=== PATIENT | female | born 1950 | race Caucasian/White ===

== ENCOUNTER → 2017-09-30 08:23 | Outpatient (CLI) | payer MEDICARE, SELFPAY ==
[2017-09-30 10:15] LABS: Alanine Aminotransferase 34 IU/L (9-52); Albumin 4.6 g/dL (3.5-5.0); Albumin Globulin Ratio 1.4 (1.0-2.8); Alkaline Phosphatase 64 U/L (38-126); Aspartate Aminotransferase 49 IU/L (14-36); BUN Creatinine Ratio 21.7 (6-22); Bilirubin Total 0.9 mg/dL (0.2-1.3); Blood Urea Nitrogen 13 mg/dL (7-17); Calcium 9.5 mg/dL (8.4-10.2); Carbon Dioxide 26 mmol/L (22-32); Chloride 101 mmol/L (98-107); Cholesterol 216 mg/dL (140-199); Estimated Glomerular Filt Rate > 60.0 mL/min (>60); Globulin 3.2 g/dL (1.7-4.1); Glucose 110 mg/dL (80-110); HDL Cholesterol 109 mg/dL (40-60); HEMOLYSIS < 15 (0-50); LDL Cholesterol Calculated 93 mg/dL (<100); Potassium 4.2 mmol/L (3.4-5.1); Sodium 138 mmol/L (137-145); Total Protein 7.8 g/dL (6.3-8.2); Triglycerides 72 mg/dL (35-150)
[2017-09-30 10:42] LABS: Thyroid Stimulating Hormone 4.44 uIU/mL (0.47-4.68)
== END ==
PROVIDERS: Visit Provider Internal Medicine
DX: I10 Essential (primary) hypertension (principal); E78.00 Pure hypercholesterolemia, unspecified; E03.9 Hypothyroidism, unspecified
CPT/HCPCS: 36415; 80053; 80061; 84443

== ENCOUNTER 2022-06-28 08:23 | Emergency (ER) | payer MEDICARE, SELFPAY ==
[2022-06-28] VITALS (32 sets, daily range): BP systolic 112–140; BP diastolic 57–93; PULSE 77–106; RESP 16; TEMP 36.4; O2SAT 95–99; BMI 27.4
--- NOTE | 2022-06-28 08:40 | ED_ITS ---
HPI - General Adult General Chief complaint: Toxicology Problem Stated complaint: detox Time Seen by Provider: 06/28/22 08:39 History of Present Illness HPI narrative: 72-year-old female nonsmoker with heavy alcohol history presents requesting help with detox from alcohol. She has medical history including hypertension and hypothyroid. She routinely drinks a few bottles of wine per day and states her last drink was last night. She is feeling a bit anxious and nauseated. She feels a bit shaky and tremulous. She denies headache or confusion. She denies abdominal pain or vomiting. She denies auditory, visual or tactile hallucinations. She is been to detox at least twice before, most recently about 8 years ago. She has had withdrawal type symptoms in the past but never had seizures. Related Data Home Medications Medication Instructions Recorded Confirmed Fish Oil (Fish Oil 500 MG Softgel) 500 mg PO QDAY ##0 05/11/12 06/28/22 VITAMIN D (Vitamin D3) 2,000 unit PO QDAY ##0 05/11/12 [woman's multivitamin] 1 tab PO Q DAY ##0 05/11/12 ascorbic acid (vitamin C) 500 mg 500 mg PO QDAY ##0 03/20/16 06/28/22 tablet levothyroxine 75 mcg tablet 50 mcg PO Q DAY ##0 08/05/16 06/28/22 (Synthroid) Previous Rx's Medication Instructions Recorded diltiazem HCl 180 mg 180 mg PO QDAY #30 caps 03/24/16 capsule,extended release 24 hr pantoprazole 40 mg tablet,delayed 40 mg PO BID ##60 03/24/16 release sucralfate 100 mg/mL oral 1,000 mg (10 mL) PO QID ##120 03/24/16 suspension Allergies Allergy/AdvReac Type Severity Reaction Status Date / Time erythromycin base AdvReac Unknown NAUSEA Verified 06/28/22 08:48 Review of Systems Review of Systems Narrative: GENERAL: See HPI HEENT: Denies sinus pain, ear pain, sore throat, difficulty swallowing, dizziness. RESPIRATORY: Denies dyspnea, cough, wheezing, hemoptysis, sputum. CARDIOVASCULAR: See HPI GASTROINTESTINAL: See HPI : Denies dysuria, frequency, incontinence, hematuria, urinary retention. MUSCULOSKELETAL: denies weakness, joint pain, or bony pain SKIN: Denies rash, skin lesions, or other NEUROLOGIC: See HPI PSYCHIATRIC: See HPI 12 point review of systems is negative except for those stated above Patient History Surgical History Status post laparoscopy Status post laparotomy Social History Smoking Status: Never smoker Exam Narrative Exam Narrative: GENERAL: [72] year old patient appears stated age. Well-developed patient, in mild distress. A bit anxious and agitated, GCS 15 HEAD: Atraumatic. Normocephalic. EYES: Pupils equal round and reactive. Extraocular motions intact. No scleral icterus. No injection or drainage. ENT: Nose without bleeding, purulent drainage. Throat without erythema, tonsillar hypertrophy or exudate. Airway patent. NECK: Trachea midline. Non tender CARDIOVASCULAR: Tachycardic but regular rhythm without murmurs, gallops, or rubs. RESPIRATORY: Clear to auscultation. Breath sounds equal bilaterally. No wheezes, rales, or rhonchi. GASTROINTESTINAL: Abdomen soft, non-tender, nondistended. EXTREMITIES: No edema or joint tenderness. BACK: Nontender without deformity or crepitance. No flank tenderness. NEURO: AOx3. Moderate tremor noted with arms extended SKIN: No rash or erythema of visible areas Initial Vital Signs Initial Vital Signs: Vital Signs Pulse Rate 101 H 06/28/22 08:28 Pulse Oximetry 98 06/28/22 08:28 Course Course Course Narrative: CIWA-Ar for Alcohol Withdrawal from [employer] on 06/28/2022 All calculations should be rechecked by clinician prior to use RESULT SUMMARY: 8 points Patients with scores <= typically do not require medication for withdrawal. INPUTS: Nausea/vomiting ?> 3 = (More severe symptoms) Tremor ?> 3 = (More severe symptoms) Paroxysmal sweats ?> 0 = No sweat visible Anxiety ?> 0 = No anxiety, at ease Agitation ?> 2 = (More severe symptoms) Tactile disturbances ?> 0 = None Auditory disturbances ?> 0 = Not present Visual disturbances ?> 0 = Not present Headache/fullness in head ?> 0 = Not Present Orientation/clouding of sensorium ?> 0 = Oriented, can do serial additions Orders Ordered: ED Orders 06/28/22 12:05 Consult to P[employer]ER [employer] Stat Discontinued Medications Sodium Chloride (Normal Saline 0.9%) 1,000 mls @ 1,000 mls/hr IV BOLUS ONE Stop: 06/28/22 09:38 Last Infusion: 06/28/22 10:43 Dose: 0 mls/hr Documented By: Admin: 06/28/22 08:49 Dose: 1,000 mls/hr Documented By: AT Thiamine HCl 200 mg/ Sodium (Chloride) 102 mls @ 408 mls/hr IV NOW ONE Stop: 06/28/22 08:40 Last Infusion: 06/28/22 09:36 Dose: 0 mls/hr Documented By: Admin: 06/28/22 09:08 Dose: 408 mls/hr Documented By: DELMER Phenobarbital (Phenobarbital 65 Mg/Ml Vial) 260 mg IV NOW ONE Stop: 06/28/22 08:40 Last Admin: 06/28/22 08:49 Dose: 260 mg Documented By: AT Phenobarbital (Phenobarbital 65 Mg/Ml Vial) 130 mg IV NOW ONE Stop: 06/28/22 11:42 Last Admin: 06/28/22 11:46 Dose: 130 mg Documented By: DELMER Phenobarbital (Phenobarbital 65 Mg/Ml Vial) 130 mg IV NOW ONE Stop: 06/28/22 14:46 Last Admin: 06/28/22 14:59 Dose: 130 mg Documented By: DELMER Consultations Consultation #1: discussed minimally elevated LFTs and Bilirubin with Dr. Robbins (Surgery) given presence of gallstone on US. After discussing her clinical presentation, complete lack of any abdominal pain or provocation associated with eating nor signs of cholecystitis on imaging he states that these slight elevations in LFTs are most likely a consequence of alcohol abuse and there is no indication for admission or surgical intervention at this time. Vital Signs Vital signs: Vital Signs - 8 hr 06/28/22 12:00 06/28/22 12:02 06/28/22 12:02 Pulse Rate 87 78 Blood Pressure 130/70 Pulse Oximetry 99 99 06/28/22 12:30 06/28/22 12:30 06/28/22 13:00 Pulse Rate 82 Blood Pressure 114/57 L 112/64 Pulse Oximetry 97 06/28/22 13:00 06/28/22 13:30 06/28/22 13:31 Pulse Rate 82 93 H 93 H Blood Pressure Pulse Oximetry 98 96 97 06/28/22 13:31 06/28/22 14:00 06/28/22 14:01 Pulse Rate 104 H Blood Pressure 118/60 117/93 H Pulse Oximetry 98 06/28/22 14:01 06/28/22 14:30 06/28/22 15:00 Pulse Rate 99 H 87 85 Blood Pressure Pulse Oximetry 98 98 96 06/28/22 15:30 06/28/22 16:00 06/28/22 16:30 Pulse Rate 80 90 77 Blood Pressure Pulse Oximetry 97 98 96 06/28/22 16:40 06/28/22 16:40 06/28/22 17:00 Pulse Rate 89 Blood Pressure 117/70 117/66 Pulse Oximetry 98 06/28/22 17:00 06/28/22 17:30 06/28/22 18:02 Pulse Rate 95 H 90 100 H Blood Pressure Pulse Oximetry 97 98 95 06/28/22 18:30 06/28/22 19:00 06/28/22 19:07 Pulse Rate 77 81 Blood Pressure 117/68 Pulse Oximetry 97 98 06/28/22 19:07 Pulse Rate 80 Blood Pressure Pulse Oximetry 98 Medical Decision Making Lab Data 06/28/22 08:45 06/28/22 08:45 Labs: Lab Results 06/28/22 06/28/22 06/28/22 Range/Units 08:45 08:45 08:45 WBC 7.3 (4.5-11.0) X10^3/uL RBC 4.09 (4.0-5.2) X10^6/uL Hgb 14.5 (12.0-16.0) g/dL Hct 42.3 (36-46) % MCV 103.6 H (80-100) fL MCH 35.5 H (26-34) PG MCHC 34.3 (30-36) % RDW 14.0 (11.6-14.8) % Plt Count 222 (150-400) X10^3/uL Neut % (Auto) 68.7 (50-75) % Lymph % (Auto) 20.7 L (25-40) % [facility] % (Auto) 9.8 (3-14) % Eos % (Auto) 0.5 L (2-4) % Baso % (Auto) 0.3 (0-2) % Neut # (Auto) 5000 (7741-3897) /uL Lymph # (Auto) 1500 (6856-1351) /uL [facility] # (Auto) 700 (0-900) /uL Eos # (Auto) 0 (0-450) /uL Baso # (Auto) 0 (0-100) /uL PT 12.0 (10.1-12.7) SECONDS INR 1.0 (0.9-1.3) Sodium 131 L (137-145) mmol/L Potassium 3.6 (3.4-5.1) mmol/L Chloride 94 L (98-107) mmol/L Carbon Dioxide 25 (22-32) mmol/L BUN 12 (7-17) mg/dL Creatinine 0.63 (0.52-1.04) mg/dL Estimated GFR > 60 (>60) mL/min BUN/Creatinine Ratio 19.0 (6-22) Glucose 127 H (80-110) mg/dL Calcium 10.0 (8.4-10.2) mg/dL Total Bilirubin 1.9 H (0.2-1.3) mg/dL AST 74 H (14-36) IU/L ALT 42 H (<35) IU/L Alkaline Phosphatase 71 (38-126) U/L Total Protein 7.9 (6.3-8.2) g/dL Albumin 4.4 (3.5-5.0) g/dL Globulin 3.5 (1.7-4.1) g/dL Albumin/Globulin Ratio 1.3 (1.0-2.8) TSH (0.47-4.68) uIU/mL Urine RBC (0-5/HPF) Urine WBC (0-5/HPF) Ur Squamous Epith Cells (0-5/HPF) Urine Bacteria (None) Ur Culture Indicated? U Opiates 300ng/mL cut (Negative) Ur Oxycodone Screen (Negative) Urine Methadone Screen (Negative) Ur Barbiturates Screen (Negative) U Tricyclic Antidepress (Negative) Ur Phencyclidine Scrn (Negative) Ur Amphetamines Screen (Negative) U Methamphetamines Scrn (Negative) Ur MDMA Scrn (Ecstasy) (Negative) U Benzodiazepines Scrn (Negative) Urine Cocaine Screen (Negative) U Marijuana (THC) Screen (Negative) Ethyl Alcohol < 10 ( - 10) mg/dL SARS-CoV-2 (PCR) (Negative) 06/28/22 06/28/22 06/28/22 Range/Units 08:45 08:45 09:41 WBC (4.5-11.0) X10^3/uL RBC (4.0-5.2) X10^6/uL Hgb (12.0-16.0) g/dL Hct (36-46) % MCV (80-100) fL MCH (26-34) PG MCHC (30-36) % RDW (11.6-14.8) % Plt Count (150-400) X10^3/uL Neut % (Auto) (50-75) % Lymph % (Auto) (25-40) % [facility] % (Auto) (3-14) % Eos % (Auto) (2-4) % Baso % (Auto) (0-2) % Neut # (Auto) (0225-4416) /uL Lymph # (Auto) (4305-6099) /uL [facility] # (Auto) (0-900) /uL Eos # (Auto) (0-450) /uL Baso # (Auto) (0-100) /uL PT (10.1-12.7) SECONDS INR (0.9-1.3) Sodium (137-145) mmol/L Potassium (3.4-5.1) mmol/L Chloride (98-107) mmol/L Carbon Dioxide (22-32) mmol/L BUN (7-17) mg/dL Creatinine (0.52-1.04) mg/dL Estimated GFR (>60) mL/min BUN/Creatinine Ratio (6-22) Glucose (80-110) mg/dL Calcium (8.4-10.2) mg/dL Total Bilirubin (0.2-1.3) mg/dL AST (14-36) IU/L ALT (<35) IU/L Alkaline Phosphatase (38-126) U/L Total Protein (6.3-8.2) g/dL Albumin (3.5-5.0) g/dL Globulin (1.7-4.1) g/dL Albumin/Globulin Ratio (1.0-2.8) TSH 3.45 (0.47-4.68) uIU/mL Urine RBC 1-5/hpf (0-5/HPF) Urine WBC 5-10/hpf H (0-5/HPF) Ur Squamous Epith Cells 1-5 /hpf (0-5/HPF) Urine Bacteria Many (>30) H (None) Ur Culture Indicated? Specimen cultured U Opiates 300ng/mL cut (Negative) Ur Oxycodone Screen (Negative) Urine Methadone Screen (Negative) Ur Barbiturates Screen (Negative) U Tricyclic Antidepress (Negative) Ur Phencyclidine Scrn (Negative) Ur Amphetamines Screen (Negative) U Methamphetamines Scrn (Negative) Ur MDMA Scrn (Ecstasy) (Negative) U Benzodiazepines Scrn (Negative) Urine Cocaine Screen (Negative) U Marijuana (THC) Screen (Negative) Ethyl Alcohol ( - 10) mg/dL SARS-CoV-2 (PCR) Negative (Negative) 06/28/22 Range/Units 09:41 WBC (4.5-11.0) X10^3/uL RBC (4.0-5.2) X10^6/uL Hgb (12.0-16.0) g/dL Hct (36-46) % MCV (80-100) fL MCH (26-34) PG MCHC (30-36) % RDW (11.6-14.8) % Plt Count (150-400) X10^3/uL Neut % (Auto) (50-75) % Lymph % (Auto) (25-40) % [facility] % (Auto) (3-14) % Eos % (Auto) (2-4) % Baso % (Auto) (0-2) % Neut # (Auto) (5648-0459) /uL Lymph # (Auto) (4046-2601) /uL [facility] # (Auto) (0-900) /uL Eos # (Auto) (0-450) /uL Baso # (Auto) (0-100) /uL PT (10.1-12.7) SECONDS INR (0.9-1.3) Sodium (137-145) mmol/L Potassium (3.4-5.1) mmol/L Chloride (98-107) mmol/L Carbon Dioxide (22-32) mmol/L BUN (7-17) mg/dL Creatinine (0.52-1.04) mg/dL Estimated GFR (>60) mL/min BUN/Creatinine Ratio (6-22) Glucose (80-110) mg/dL Calcium (8.4-10.2) mg/dL Total Bilirubin (0.2-1.3) mg/dL AST (14-36) IU/L ALT (<35) IU/L Alkaline Phosphatase (38-126) U/L Total Protein (6.3-8.2) g/dL Albumin (3.5-5.0) g/dL Globulin (1.7-4.1) g/dL Albumin/Globulin Ratio (1.0-2.8) TSH (0.47-4.68) uIU/mL Urine RBC (0-5/HPF) Urine WBC (0-5/HPF) Ur Squamous Epith Cells (0-5/HPF) Urine Bacteria (None) Ur Culture Indicated? U Opiates 300ng/mL cut Negative (Negative) Ur Oxycodone Screen Negative (Negative) Urine Methadone Screen Negative (Negative) Ur Barbiturates Screen Negative (Negative) U Tricyclic Antidepress Negative (Negative) Ur Phencyclidine Scrn Negative (Negative) Ur Amphetamines Screen Negative (Negative) U Methamphetamines Scrn Negative (Negative) Ur MDMA Scrn (Ecstasy) Negative (Negative) U Benzodiazepines Scrn Negative (Negative) Urine Cocaine Screen Negative (Negative) U Marijuana (THC) Screen Negative (Negative) Ethyl Alcohol ( - 10) mg/dL SARS-CoV-2 (PCR) (Negative) Urine Dip Bedside Urine Glucose Negative Bedside Urine Bilirubin - Negative Bedside Urine Ketone +/- 5 Urine Specific Douglas 1.010 Bedside Urine Occult Blood - Negative Bedside Urine pH 6.0 Bedside Urine Protein - Negative Bedside Urine Urobilinogen - Negative Bedside Urine Nitrite - Negative Bedside Urine Leukocytes +++ 500 Esterase Point of care testing: Urine Dip Bedside Urine Glucose Negative Bedside Urine Bilirubin - Negative Bedside Urine Ketone +/- 5 Urine Specific Douglas 1.010 Bedside Urine Occult Blood - Negative Bedside Urine pH 6.0 Bedside Urine Protein - Negative Bedside Urine Urobilinogen - Negative Bedside Urine Nitrite - Negative Bedside Urine Leukocytes +++ 500 Esterase MDM Narrative Medical decision making narrative: [72] year old patient presents with heavy alcohol history concern about early withdrawal and requesting help with detox Multiple etiologies for patient's symptoms considered including, but not limited to: [Alcohol withdrawal versus other] Prior Charts reviewed in our EMR Primary Historian: patient Labs reviewed and interpreted by myself: Slight elevation in LFTs and bilirubin, no leukocytosis or left shift Imaging reviewed: ABD US notes gall stones, no choleycystitis Consultations: Discussed with Dr. Robbins, see details above Patient's symptoms improved over duration of stay with above-stated therapies. Phenobarb 260 --> 130 Patient is medically cleared, appropriate for transfer to Detox at [place] Critical Care Time Critical Care Time Critical Care Time: Yes Total Critical Care Time: 30 Attestation: The high probability of a clinically significant, sudden or life threatening deterioration of the [CV] system(s) required my full and direct attention, intervention and personal management. The aggregate critical care time was [30] minutes. This time is in addition to time spent performing reported procedures but includes the following: [x] Data Review and interpretation [x] Patient assessment and monitoring of vital signs [x] Documentation [x] Medication orders and management Discharge Plan Departure Patient Disposition: [facility] Clinical Impression: Alcohol withdrawal syndrome Prescriptions: No Action Fish Oil (Fish Oil 500 MG Softgel) 500 mg PO QDAY Qty: 0 VITAMIN D (Vitamin D3) 2,000 unit PO QDAY Qty: 0 [woman's multivitamin] 1 tab PO Q DAY Qty: 0 ascorbic acid (vitamin C) 500 MG tablet 500 mg PO QDAY Qty: 0 diltiazem HCl 180 MG capsule,extended release 24hr 180 mg PO QDAY Qty: 30 0RF pantoprazole 40 MG tablet,delayed release (DR/EC) 40 mg PO BID Qty: 60 0RF sucralfate 1 GM/10 ML suspension 1,000 mg PO QID Qty: 120 0RF levothyroxine [Synthroid] 75 MCG tablet 50 mcg PO Q DAY Qty: 0
[2022-06-28] MEDS: SODIUM CHLORIDE 0.9% 1,000 ML 1000 ML IV (08:49)
[2022-06-28] MEDS: PHENobarbital 65 MG/ML VIAL 260 MG IV (08:49)
--- NOTE | 2022-06-28 08:50 | PC.NURSE ---
Addendum entered by Leah Vail R.N. 06/28/22 09:00: 0900: Pt completing phone screen with [facility] in [place] at this time. Original Note: 0850: [facility] - no beds available [facility], [place], operated by [facility]- no beds available [facility]-has beds later today. advised to fax packet to intake [phone] [facility]- has beds available. advised to fax packet to [phone]
[2022-06-28 08:55] LABS: Add Manual Diff / Slide Review NO; Basophils Absolute Auto 0 /uL (0-100); Basophils Percent Auto 0.3 % (0-2); Eosinophils Absolute Auto 0 /uL (0-450); Eosinophils Percent Auto 0.5 % (2-4); Hematocrit 42.3 % (36-46); Hemoglobin 14.5 g/dL (12.0-16.0); Lymphocytes Absolute Auto 1500 /uL (1100-4500); Lymphocytes Percent Auto 20.7 % (25-40); Mean Corpuscular HGB Conc 34.3 % (30-36); Mean Corpuscular Hemoglobin 35.5 PG (26-34); Mean Corpuscular Volume 103.6 fL (80-100); Monocytes Absolute Auto 700 /uL (0-900); Monocytes Percent Auto 9.8 % (3-14); Neutrophils Absolute Auto 5000 /uL (1500-7000); Neutrophils Percent Auto 68.7 % (50-75); Platelet Count 222 X10^3/uL (150-400); Red Blood Cell Count 4.09 X10^6/uL (4.0-5.2); White Blood Cell Count 7.3 X10^3/uL (4.5-11.0)
[2022-06-28 09:06] LABS: Alanine Aminotransferase 42 IU/L (<35); Albumin 4.4 g/dL (3.5-5.0); Albumin Globulin Ratio 1.3 (1.0-2.8); Alkaline Phosphatase 71 U/L (38-126); Aspartate Aminotransferase 74 IU/L (14-36); Bilirubin Total 1.9 mg/dL (0.2-1.3); Blood Urea Nitrogen 12 mg/dL (7-17); Carbon Dioxide 25 mmol/L (22-32); Chloride 94 mmol/L (98-107); Estimated Glomerular Filt Rate > 60 mL/min (>60); Ethanol (ETOH) < 10 mg/dL; Globulin 3.5 g/dL (1.7-4.1); Glucose 127 mg/dL (80-110); HEMOLYSIS < 15 (0-50); Potassium 3.6 mmol/L (3.4-5.1); Sodium 131 mmol/L (137-145); Total Protein 7.9 g/dL (6.3-8.2)
[2022-06-28 09:07] LABS: COVID19 -Nasal RAPID Negative (Negative)
[2022-06-28] MEDS: THIAMINE 200 MG in SODIUM CHLORIDE 0.9% 100 ML 408 MG IV (09:08)
[2022-06-28 09:36] LABS: Thyroid Stimulating Hormone 3.45 uIU/mL (0.47-4.68)
--- NOTE | 2022-06-28 09:43 | DI.US.S_ITS ---
PROCEDURE: US ABDOMEN LIMITED INDICATIONS: ELEVATED LIVER FUNCTION TESTS AND BILIRUBIN TECHNIQUE: Real-time focused scanning was performed of the abdomen, with image documentation. COMPARISON: [facility], [place], ABDOMEN/PELVIS WITH CONTRAST, 03/20/2016, 7:50. FINDINGS: Increased echogenicity of the liver is consistent with diffuse hepatic steatosis. There are multiple stones present in the gallbladder. The gallbladder is mildly distended. There is a non mobile stone at the gallbladder neck. There is no gallbladder wall thickening or fluid around the gallbladder or sonographic Alaniz sign. No biliary ductal dilatation. Common bile duct measures 4.1 mm. Visualized portions the pancreas are unremarkable. IMPRESSION: 1. Diffuse hepatic steatosis. 2. Cholelithiasis. Dictated by: Mateo Covarrubias M.D. on 06/28/2022 at 11:04 Approved by: Mateo Covarrubias M.D. on 06/28/2022 at 11:06
[2022-06-28 09:58] LABS: Bacteria Urine Many (>30); Culture Indicated Urine Specimen Cultured; RBC Urine 1-5/HPF (0-5/HPF); Squamous Epithelial Cell Urine 1-5 /HPF (0-5/HPF); WBC Urine 5-10/HPF (0-5/HPF)
[2022-06-28] MEDS: PHENobarbital 65 MG/ML VIAL 130 MG IV ×2 (11:46→14:59)
--- NOTE | 2022-06-28 13:00 | CM.SWNOTE ---
REPLENISHMENT SPECIALIST Assessment REPLENISHMENT SPECIALIST - Loan Representative Assessment REPLENISHMENT SPECIALIST/Loan Representative Assessment Time Spent with Patient Start date 06/28/22 Visit Start Time 12:25 End date 06/28/22 Visit End Time 12:45 Total time Care Management spent on 20 minutes patient visit-in minutes Substance Abuse Screening Include Onset, Duration, Intensity Presenting Problem Patient presents to ED due to concern for ETOH withdrawal and seeking detox. Patient endorses she drinks a few bottles of wine a day. Patient endorses that she drank a couple glasses of wine last night in attempt to decrease wine intake. Precipitating Event(s) Patient endorses she is motivated to stop her drinking . Patient endorses that she had a fall last week when she lost her balance due to drinking too much and does not want to put herself in that situation again. Patient endorses motivation to take care of herself and follow up with upcoming medical appointments in July, patient endorses she believes her drinking is interfering with her health. Patient endorses hx of two 21 inpatient rehab stays several years ago and she proceeded to drink upon discharge each time. Patient endorses she feels like wine is poison to her health now and she wants to detox in a safe environment . Patient Strengths Patient has good support from friends and family and patient is seeking detox. Current Behavioral Health Provider(s) None currently, patient is Include Facility, Provider, Ph. # interested in outpatient providers Family Hx of Behavioral Abuse None reported Rehab Facilities? ((Date(s), Location(s) Patient endorses hx of going ) to [facility] in [place] about 15 years ago and hx of going to [place] about 8-9 years ago for rehab treatment. History of Withdrawal? Seizures? Patient endorses hx of shakiness, anxiety and depression. Patient denies hx of seizures. Longest Period of Sobriety Patient endorses she was sober for 6 months about 20 years ago. Psychosocial information & Support Patient is 72 y/o female who Systems resides in [place]. Patient resides with spouse and has daughter that lives in town, patient endorses several friends and neighbors as supports as well. 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 Legal Concerns Legal Matters - Outstanding Issues None reported Mental Status Orientation (Person/Place/Time) A/Ox4 Stated Mood I've been drinking too much Affect (Congruent with Mood?) euthymic, anxious, full range, congruent with mood Thought Content - Specify/Describe None reported Obsessions, Delusions, Hallucinations Thought Processes (Kanpwjb-Qcbxfzsy-Qjvj coherent Exnfbbtk-Rljzhvip-Ktcvtwxnhe- Iczsdnmefiaoqv-Oylrvek-Kzjhmezcmvrt- Thought Blocking) Speech (Bevedq-Yudm-Ooqsrmg-Rapid-Soft- normal Loud-Pressured) Motor (Snywjz-Hvdeylhdw-Lthb-Other) normal Insight (Spav-Msnl-Vjdh/Limited) fair Judgement (Sjju-Kezn-Mifz/Limited) fair Impulse Control (Adequate-Impaired) adequate Memory (Kdgqmkews-Nevovu-Gvguuo, intact, not formally assessed Impaired-Intact) Concentration (Intact-Impaired) intact Attention (Intact-Impaired) intact Behavior (Appropriate-Inappropriate) appropriate Additional Comment Patient presents as calm, cooperative and communicative. Risk Assessment Suicidal Ideation (Plan) No Homicidal Ideation (Plan) No Intervention Intervention REPLENISHMENT SPECIALIST enters room to meet with patient, present in room is patient's spouse. Patient gives consent for spouse to be present. Patient endorses she is seeking detox for her ETOH withdrawals. Patient endorses she drank a few glasses a of wine last night. Patient endorses on typical day she can drink up to a few bottles of wine. Patient endorses she has attempt to address her drinking twice several years ago at inpatient rehab but was unsuccessful upon return to home. Patient endorses she has tried AA once but is willing to try it again, patient is also open to outpatient MH and ISMAEL providers. Patient endorses she has been experiencing depression due to concern for her vision, but states she has medical appointments next month to address this. Patient endorses ability to manage all ADLs. It is the opinion of this REPLENISHMENT SPECIALIST that patient is appropriate for and will benefit from detox to for safety and medication management. REPLENISHMENT SPECIALIST to review the above with ED provider Dr. Santizo. Plan RA Plan REPLENISHMENT SPECIALIST to seek detox bed for patient upon medical clearance . ANDRES MontielSW
[2022-06-28 13:44] LABS: Ur Creatinine Normal (Normal); Ur Specific Gravity Normal (Normal); Urine pH Normal (Normal)
[2022-06-28 13:47] LABS: UR Morphine/Opiate cutoff 300 Negative (Negative); Urine Amphetamines Negative (Negative); Urine Barbiturates Negative (Negative); Urine Benzodiazepines Negative (Negative); Urine Cocaine Negative (Negative); Urine MDMA Negative (Negative); Urine Methadone Negative (Negative); Urine Methamphetamines Negative (Negative); Urine Oxycodone Negative (Negative); Urine Phencyclidine Negative (Negative); Urine Tetrahydrocannabinol Negative (Negative); Urine Tricyclic Antidepressant Negative (Negative)
--- NOTE | 2022-06-28 15:07 | CM.SWNOTE ---
EXPORT FREIGHT SPECIALIST Note EXPORT FREIGHT SPECIALIST receives call from [facility], it is reported that patient is accepted pending UA results. EXPORT FREIGHT SPECIALIST faxes UA results, it is reported that patient is accepted at [facility]. Intake- [facility], accepting provider is ALPHONSE Tiwari. ETA is 2200. EXPORT FREIGHT SPECIALIST asks about transport preference and it is reported that the preference is via EMS due to concern for withdrawals or patient seeking further access to ETOH. EXPORT FREIGHT SPECIALIST calls [facility] and schedules transport for 1999 hand picker time. EXPORT FREIGHT SPECIALIST reviews this with patient and spouse and they indicate agreement and understanding. EXPORT FREIGHT SPECIALIST calls patient's insurance company and confirms that patient's transport copay is $150. It is reported that [facility] accepted patient for tomorrow morning, ED provider is not able to board patient in ED until then and patient and spouse's preference is direct transfer to detox. Per previous note, [facility] and [facility] detox do not have beds. EXPORT FREIGHT SPECIALIST provides patient and spouse with lists of MH and ISMAEL providers that accept patient's insurance. Plan: Patient to transfer to [facility] for detox bed via BLS this evening. Montse Philippe, GREENS PLANTER
--- NOTE | 2022-06-28 20:42 | PC.NURSE ---
Attempted to call report to Nicole Abdullahi, #[phone], no answer. [facility] ambulance crew arrived at this time for transport. Patient ambulatory and able to independently move to stretcher. Will attempt to call Nicole again for nurse to nurse report.
--- NOTE | 2022-06-28 21:16 | PC.NURSE ---
Call made to give nurse to nurse report to Bradly Rivear. Spoke with NGUYỄN Prieto, report given, all questions answered.
== END 2022-06-28 20:50 | disposition short-term general hospital (02) ==
PROVIDERS: Emergency Provider Emergency Medicine; PCP Physician Assistant
DX: F10.239 Alcohol dependence with withdrawal, unspecified (principal); Z20.822 Contact with and (suspected) exposure to COVID-19
CPT/HCPCS: 36415; 76705; 80053; 80305; 80320; 81003; 81015; 84443; 85025; 85610; 87077; 87086; 87186; 87635; 96361; 96374; 96376; 99284; 99285; C9803; J2560

== ENCOUNTER 2023-10-29 19:38 | Emergency (ER) | payer MEDICARE, SELFPAY ==
[2023-10-29] VITALS (42 sets, daily range): BP systolic 97–136; BP diastolic 51–78; PULSE 65–93; RESP 18–41; TEMP 36.1–36.9; O2SAT 91–100; BMI 32.5
--- NOTE | 2023-10-29 19:34 | DI.RAD.S_ITS ---
PROCEDURE: XR ANKLE RT MIN 3V INDICATIONS: right ankle injury/deformity TECHNIQUE: 3 views of the ankle were acquired. COMPARISON: None. FINDINGS: Bones: Oblique fracture through the distal fibula and transverse fracture through the medial malleolus associated with ankle mortise disruption and lateral tibial talar subluxation angulation Soft tissues: No tibiotalar joint effusion. Achilles tendon appears normal. IMPRESSION: Angulated by malleolar ankle fracture with complete ankle mortise disruption Approved by: Walt Moran M.D. on 10/29/2023 at 19:25
--- NOTE | 2023-10-29 19:44 | ED_ITS ---
HPI - Extremity Injury (Lower) General Chief Complaint: Extremity Injury, Lower Stated Complaint: ETOH, Right ankle injury Time Seen by Provider: 10/29/23 19:44 History of Present Illness HPI Narrative: 73-year-old female admits to recent/daily alcohol use, 3 glasses of wine this evening which apparently she usually drinks, attempted stretching at her home floor, lost her balance fell to the side, unclear if she fell rightward or leftward, but had pain and swelling to her right ankle. Denies any other injuries. Specifically she denies striking her head. She had no loss of consciousness, denies headache, denies facial discomfort or swelling, denies pain to neck upper back lower back, denies pain to abdomen chest pelvic region. Denies hip discomfort. His upper extremity injuries. Denies pain in the left lower extremity. Denies pain to the proximal right lower extremity above the level of the ankle area, no knee pain or swelling. Related Data Home Medications Medication Instructions Recorded Confirmed Fish Oil (Fish Oil 500 MG Softgel) 500 mg PO QDAY ##0 05/11/12 06/28/22 VITAMIN D (Vitamin D3) 2,000 unit PO QDAY ##0 05/11/12 [woman's multivitamin] 1 tab PO Q DAY ##0 05/11/12 ascorbic acid (vitamin C) 500 mg 500 mg PO QDAY ##0 03/20/16 06/28/22 tablet levothyroxine 75 mcg tablet 50 mcg PO Q DAY ##0 08/05/16 06/28/22 (Synthroid) Previous Rx's Medication Instructions Recorded diltiazem HCl 180 mg 180 mg PO QDAY #30 caps 03/24/16 capsule,extended release 24 hr pantoprazole 40 mg tablet,delayed 40 mg PO BID ##60 03/24/16 release sucralfate 100 mg/mL oral 1,000 mg (10 mL) PO QID ##120 03/24/16 suspension Allergies Allergy/AdvReac Type Severity Reaction Status Date / Time erythromycin base AdvReac Unknown NAUSEA Verified 06/28/22 08:48 Review of Systems Review of Systems Narrative: see HPI Patient History Surgical History Status post laparoscopy Status post laparotomy Social History Smoking Status: Never smoker Smoking Status: Never smoker alcohol intake frequency: 3 or more drinks per day Alcohol type: wine Exam Narrative Exam Narrative: GENERAL: Well-developed patient, in mild distress. HEAD: Atraumatic. Normocephalic. EYES: Pupils equal round and reactive. Extraocular motions intact. No scleral icterus. No injection or drainage. ENT: Nose without bleeding, purulent drainage. Throat without erythema, tonsillar hypertrophy or exudate. Airway patent. NECK: Trachea midline. Non tender CARDIOVASCULAR: Regular rate and rhythm without murmurs, gallops, or rubs. RESPIRATORY: Clear to auscultation. Breath sounds equal bilaterally. No wheezes, rales, or rhonchi. GASTROINTESTINAL: Abdomen soft, non-tender, nondistended. EXTREMITIES: Abrasion medial malleolus right ankle, with gross deformity and swelling, likely fracture dislocation. Good cap refill distal toes. DP pulse good. BACK: Nontender without deformity or crepitance. No flank tenderness. NEURO: AOx3. Motor exam grossly nonfocal SKIN: No rash or erythema of visible areas Initial Vital Signs Initial Vital Signs: Vital Signs Pulse Rate 76 10/29/23 19:38 Pulse Oximetry 97 10/29/23 19:38 Procedures Orthopedic Fracture Reduction Fracture #1: Time of procedure: 21:41 Analgesia: procedural sedation Technique: direct manipulation Post Reduction X-rays Demonstrate: acceptable reduction Post-reduction neuro exam: intact Splint Applied: Yes Patient Tolerated Procedure: Well Additional Comments: Fracture dislocation right ankle, tib-fib, tolerated procedure sedation well, improved on post procedure x-ray, in splint, good cap refill. Follow up with Orthopedic surgery for definitive repair Procedural Sedation Time of procedure: 21:38 Consent signed: Yes Time out performed: Yes Indication: fracture/dislocation reduction ASA Class: I Preparation: monitoring analyst applied, pulse oximeter, capnometry used, supplemental O2 applied, suction/airway equipment at bedside and IV secured IV Propofol dose (mg): 160 ED Sedation Level: Moderate (Concious) Patient Tolerated Procedure: Well Complications: none Additional Comments: Tolerated procedure well, post procedure x-rays performed, returned to preprocedural baseline mental status Course Orders Ordered: ED Orders 10/29/23 19:34 XR ankle RT min 3V Stat 10/29/23 21:35 XR ankle RT min 3V Stat 10/29/23 21:57 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 to [employer]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 Stat Discontinued Medications Bacitracin (Bacitracin Oint 0.9 Gm Pckt) 2 applic TOP NOW ONE Stop: 10/29/23 21:17 Last Admin: 10/29/23 21:20 Dose: 2 applic Documented By: Propofol (Propofol 200 Mg/20 Ml Vial) 200 mg IV NOW ONE Stop: 10/29/23 21:14 Last Admin: 10/29/23 21:23 Dose: 160 mg Documented By: Tramadol HCl (Tramadol 50 Mg Tablet) 50 mg PO NOW ONE Stop: 10/29/23 22:28 Last Admin: 10/29/23 22:40 Dose: 50 mg Documented By: Tramadol HCl (Tramadol 50 Mg Prepack) 1 bottle MISC DIRECTED ONE Stop: 10/29/23 22:29 Last Admin: 10/29/23 22:40 Dose: 1 bottle Documented By: Vital Signs Vital signs: Vital Signs - 8 hr 10/29/23 19:38 10/29/23 19:39 10/29/23 19:40 Temperature 96.9 F L Pulse Rate 76 65 69 Respiratory Rate 22 Blood Pressure 135/68 Pulse Oximetry 97 98 98 Oxygen Delivery Method Room Air Oxygen Flow Rate 10/29/23 19:41 10/29/23 19:41 10/29/23 19:45 Temperature Pulse Rate 72 69 Respiratory Rate Blood Pressure 135/68 Pulse Oximetry 98 98 Oxygen Delivery Method Oxygen Flow Rate 10/29/23 19:53 10/29/23 19:55 10/29/23 20:00 Temperature Pulse Rate 76 70 73 Respiratory Rate Blood Pressure Pulse Oximetry 97 94 98 Oxygen Delivery Method Room Air Oxygen Flow Rate 10/29/23 20:01 10/29/23 20:01 10/29/23 20:05 Temperature Pulse Rate 73 71 Respiratory Rate Blood Pressure 125/69 Pulse Oximetry 98 97 Oxygen Delivery Method Oxygen Flow Rate 10/29/23 20:10 10/29/23 20:15 10/29/23 20:20 Temperature Pulse Rate 76 67 71 Respiratory Rate Blood Pressure Pulse Oximetry 99 99 98 Oxygen Delivery Method Oxygen Flow Rate 10/29/23 20:25 10/29/23 20:30 10/29/23 20:31 Temperature Pulse Rate 66 72 69 Respiratory Rate Blood Pressure Pulse Oximetry 99 98 99 Oxygen Delivery Method Oxygen Flow Rate 10/29/23 20:31 10/29/23 20:35 10/29/23 20:40 Temperature Pulse Rate 77 70 Respiratory Rate Blood Pressure 136/59 L Pulse Oximetry 99 97 Oxygen Delivery Method Oxygen Flow Rate 10/29/23 20:45 10/29/23 20:50 10/29/23 20:55 Temperature Pulse Rate 69 71 73 Respiratory Rate Blood Pressure Pulse Oximetry 98 99 99 Oxygen Delivery Method Oxygen Flow Rate 10/29/23 21:00 10/29/23 21:01 10/29/23 21:01 Temperature Pulse Rate 73 76 Respiratory Rate Blood Pressure 135/63 Pulse Oximetry 98 99 Oxygen Delivery Method Oxygen Flow Rate 10/29/23 21:05 10/29/23 21:10 10/29/23 21:15 Temperature Pulse Rate 71 78 Respiratory Rate Blood Pressure 121/57 L Pulse Oximetry 98 98 Oxygen Delivery Method Oxygen Flow Rate 10/29/23 21:15 10/29/23 21:20 10/29/23 21:20 Temperature Pulse Rate 83 85 82 Respiratory Rate 25 H 18 20 Blood Pressure 121/57 L Pulse Oximetry 97 97 97 Oxygen Delivery Method Oxygen Flow Rate 10/29/23 21:20 10/29/23 21:21 10/29/23 21:25 Temperature Pulse Rate 79 80 Respiratory Rate 26 H 24 Blood Pressure 117/58 L 117/58 L Pulse Oximetry 93 91 Oxygen Delivery Method Oxygen Flow Rate 0.5 10/29/23 21:25 10/29/23 21:30 10/29/23 21:33 Temperature Pulse Rate 75 84 Respiratory Rate 22 22 Blood Pressure 97/51 L Pulse Oximetry 93 96 Oxygen Delivery Method Oxygen Flow Rate 10/29/23 21:33 10/29/23 21:35 10/29/23 21:35 Temperature Pulse Rate 76 Respiratory Rate 21 Blood Pressure 112/59 L 113/51 L Pulse Oximetry 97 Oxygen Delivery Method Oxygen Flow Rate 10/29/23 21:40 10/29/23 21:40 10/29/23 21:45 Temperature Pulse Rate 80 83 Respiratory Rate 21 28 H Blood Pressure 115/55 L Pulse Oximetry 98 100 Oxygen Delivery Method Room Air Oxygen Flow Rate 10/29/23 21:45 10/29/23 21:50 10/29/23 21:50 Temperature Pulse Rate 74 Respiratory Rate 26 H Blood Pressure 107/63 117/66 Pulse Oximetry 99 Oxygen Delivery Method Oxygen Flow Rate 10/29/23 21:55 10/29/23 21:55 10/29/23 22:00 Temperature Pulse Rate 80 79 Respiratory Rate 41 H 19 Blood Pressure 126/60 Pulse Oximetry 99 97 Oxygen Delivery Method Oxygen Flow Rate 10/29/23 22:00 10/29/23 22:05 10/29/23 22:05 Temperature Pulse Rate 76 Respiratory Rate 35 H Blood Pressure 122/60 123/67 Pulse Oximetry 98 Oxygen Delivery Method Oxygen Flow Rate 10/29/23 22:23 10/29/23 22:23 10/29/23 22:25 Temperature Pulse Rate 93 H 83 Respiratory Rate Blood Pressure 136/63 Pulse Oximetry 98 99 Oxygen Delivery Method Oxygen Flow Rate 10/29/23 22:25 10/29/23 22:30 10/29/23 22:30 Temperature Pulse Rate 83 Respiratory Rate Blood Pressure 133/63 126/67 Pulse Oximetry 98 Oxygen Delivery Method Room Air Oxygen Flow Rate 10/29/23 22:46 Temperature 98.4 F Pulse Rate 87 Respiratory Rate 18 Blood Pressure 135/78 Pulse Oximetry 98 Oxygen Delivery Method Room Air Oxygen Flow Rate MDM - Extremity Injury (Lower) Lab Data Attestation: I reviewed the patient's lab results. Labs: Point of Care Testing Test Results Negative Imaging Data Extremity x-ray #1: Radiologist's Impression: [place] [address] XRay Report Signed Patient: Lynn Lenz MR#: [id number] : 1950 Acct:[id number] Age/Sex: 73 / F Date of Service: 10/29/23 Loc: ED Accession Number: [id number] Procedure: XR ankle RT min 3V Ordering Provider: Cj Abrams MD PROCEDURE: XR ANKLE RT MIN 3V INDICATIONS: right ankle injury/deformity TECHNIQUE: 3 views of the ankle were acquired. COMPARISON: None. FINDINGS: Bones: Oblique fracture through the distal fibula and transverse fracture through the medial malleolus associated with ankle mortise disruption and lateral tibial talar subluxation angulation Soft tissues: No tibiotalar joint effusion. Achilles tendon appears normal. IMPRESSION: Angulated by malleolar ankle fracture with complete ankle mortise disruption Approved by: Walt Moran M.D. on 10/29/2023 at 19:25 Extremity x-ray #2: Radiologist's Impression: [facility] [address] [place] [id number] XRay Report Signed Patient: Lynn Lenz MR#: [id number] : 1950 Acct:[id number] Age/Sex: 73 / F Date of Service: 10/29/23 Loc: ED Accession Number: [id number] Procedure: XR ankle RT min 3V Ordering Provider: Cj Abrams MD PROCEDURE: XR ANKLE RT MIN 3V INDICATIONS: post-reduction/splinting TECHNIQUE: 3 views of the ankle were acquired. COMPARISON: [facility], CR, XR ANKLE RT MIN 3V, 10/29/2023, 19:41. FINDINGS: Bones: Improved alignment of bimalleolar ankle fracture in fiberglass splint Soft tissues: No tibiotalar joint effusion. Achilles tendon appears normal. IMPRESSION: Improved alignment of bimalleolar ankle fracture in fiberglass splint. Pe rsistent but improved tibiotalar subluxation Approved by: Walt Moran M.D. on 10/29/2023 at 21:14 [facility] Narrative Medical decision making narrative: Recent alcohol use, 73-year-old female, fall, twisting injury to right ankle, with swelling and deformity, likely fracture dislocation, neurovascularly intact, good cap refill toes. X-rays requested. Keep NPO. X-rays show fracture dislocation right ankle, we will need reduction, keep NPO. IV propofol. See procedure note. Post reduction x-rays improved. Follow up Orthopedic surgery for definitive internal fixation treatment. Discharge with walker. Pain medications for discharge. Home with family. Follow up with Dr. Esposito, contact information given from discharge, call his office Tuesday to arrange further follow up for surgical correction Discharge Plan Departure Patient Disposition: Home Clinical Impression: Dislocation of ankle, right, closed, Fracture of right ankle, Alcohol intoxication, Abrasion of ankle, right Activity Restrictions/Additional Instructions: Fall and twisting injury, fracture dislocation of the right ankle, with sedation this was put into better position, this will need definitive surgical repair, placed in a splint. Recent alcohol use noted. Avoid alcohol use advised. Take Tylenol and or Motrin as needed for pain control. Tramadol home pack to use if needed for pain control as well. Call office of orthopedic surgery Dr. Esposito, contact information provided, call on Tuesday to arrange close follow up this week to coordinate surgical repair. You went home with your family. Use a walker for ambulation. Keep right lower extremity elevated, use ice as needed for decreased swelling. Return earlier to this/nearest emergency department for any change worsening symptoms or any concerns prior Prescriptions: No Action Fish Oil (Fish Oil 500 MG Softgel) 500 mg PO QDAY Qty: 0 VITAMIN D (Vitamin D3) 2,000 unit PO QDAY Qty: 0 [woman's multivitamin] 1 tab PO Q DAY Qty: 0 ascorbic acid (vitamin C) 500 MG tablet 500 mg PO QDAY Qty: 0 diltiazem HCl 180 MG capsule,extended release 24hr 180 mg PO QDAY Qty: 30 0RF pantoprazole 40 MG tablet,delayed release (DR/EC) 40 mg PO BID Qty: 60 0RF sucralfate 1 GM/10 ML suspension 1,000 mg PO QID Qty: 120 0RF levothyroxine [Synthroid] 75 MCG tablet 50 mcg PO Q DAY Qty: 0 Referrals: Sarmad Esposito MD [Physician] - Amina Dukes PA-C [Primary Care Provider] - Stand Alone Forms: Patient Portal/API
[2023-10-29] MEDS: BACITRACIN OINT 0.9 GM PCKT 2 APPLIC TOP (21:20)
[2023-10-29] MEDS: propofoL 200 MG/20 ML VIAL IV (21:23)
--- NOTE | 2023-10-29 21:35 | DI.RAD.S_ITS ---
PROCEDURE: XR ANKLE RT MIN 3V INDICATIONS: post-reduction/splinting TECHNIQUE: 3 views of the ankle were acquired. COMPARISON: [facility], , XR ANKLE RT MIN 3V, 10/29/2023, 19:41. FINDINGS: Bones: Improved alignment of bimalleolar ankle fracture in fiberglass splint Soft tissues: No tibiotalar joint effusion. Achilles tendon appears normal. IMPRESSION: Improved alignment of bimalleolar ankle fracture in fiberglass splint. Persistent but improved tibiotalar subluxation Approved by: Walt Moran M.D. on 10/29/2023 at 21:14
--- NOTE | 2023-10-29 22:15 | PC.NURSE ---
Pt is awake and alert. Up using walker.
[2023-10-29] MEDS: TRAMADOL 50 MG TABLET PO (22:40)
[2023-10-29] MEDS: TRAMADOL 50 MG PREPACK 1 BOTTLE MISC (22:40)
== END 2023-10-29 22:47 | disposition home or self-care (01) ==
PROVIDERS: Emergency Provider Emergency Medicine; PCP Physician Assistant
DX: S82.51XA Displaced fracture of medial malleolus of right tibia, initial encounter for closed fracture (principal); S90.511A Abrasion, right ankle, initial encounter; F10.129 Alcohol abuse with intoxication, unspecified; W18.30XA Fall on same level, unspecified, initial encounter
CPT/HCPCS: 27762; 29505; 73610; 99284; J2704

== ENCOUNTER 2023-11-07 14:00 | Inpatient (IN) | payer MEDICARE, SELFPAY ==
[2023-11-07] VITALS (12 sets, daily range): BP systolic 121–159; BP diastolic 62–133; PULSE 73–95; RESP 12–18; TEMP 36.1–37.2; O2SAT 97–100; BMI 25.8
--- NOTE | 2023-11-07 14:18 | ED.LOWEXIN ---
HPI - Extremity Injury (Lower) General Chief Complaint: Extremity Injury, Lower Stated Complaint: Right ankle pain, infected Time Seen by Provider: 11/07/23 14:18 History of Present Illness HPI Narrative: 73-year-old woman who was seen on October 28 with left ankle fracture dislocation that was relocated under sedation splinted and she was discharged home. She was seen by Orthopedics in follow up and is scheduled for surgery on November [address] Allan. She comes in today noticing that there has been some seepage on her bed through the splint. In reviewing notes does look like she had an abrasion on the medial aspect of her ankle with the initial injury with bacitracin applied under the wounds. In talking with the patient and her they note that dressing was removed with the orthopedic follow up a couple of days ago with no significant redness swelling or skin breakdown. She has not noticing increased pain or fevers. When I asked if she is done any weight-bearing she states ?only when I go to the bathroom?. There is a history of alcohol use disorder as well Related Data Home Medications Medication Instructions Recorded Confirmed Fish Oil (Fish Oil 500 MG Softgel) 500 mg PO QDAY ##0 05/11/12 06/28/22 VITAMIN D (Vitamin D3) 2,000 unit PO QDAY ##0 05/11/12 [woman's multivitamin] 1 tab PO Q DAY ##0 05/11/12 ascorbic acid (vitamin C) 500 mg 500 mg PO QDAY ##0 03/20/16 06/28/22 tablet levothyroxine 75 mcg tablet 50 mcg PO Q DAY ##0 08/05/16 06/28/22 (Synthroid) Previous Rx's Medication Instructions Recorded diltiazem HCl 180 mg 180 mg PO QDAY #30 caps 03/24/16 capsule,extended release 24 hr pantoprazole 40 mg tablet,delayed 40 mg PO BID ##60 03/24/16 release sucralfate 100 mg/mL oral 1,000 mg (10 mL) PO QID ##120 03/24/16 suspension Allergies Allergy/AdvReac Type Severity Reaction Status Date / Time erythromycin base AdvReac Unknown NAUSEA Verified 11/07/23 14:11 Review of Systems Review of Systems Narrative: Unremarkable Patient History Surgical History Status post laparoscopy Status post laparotomy Social History Smoking Status: Never smoker Smoking Status: Never smoker alcohol intake frequency: 3 or more drinks per day Alcohol type: wine Substance Use Type: does not use Exam Initial Vital Signs Initial Vital Signs: Vital Signs Temperature 98.9 F 11/07/23 14:03 Pulse Rate 95 H 11/07/23 14:03 Respiratory Rate 16 11/07/23 14:03 Blood Pressure 140/78 11/07/23 14:03 Pulse Oximetry 97 11/07/23 14:03 Oxygen Delivery Method Room Air 11/07/23 14:03 General: Alert appropriate in no acute distress Respiratory: Able to speak in full sentences, no obvious respiratory distress Cardiac: Regular rate and rhythm Skin: Skin breakdown over medial aspect of right ankle with necrosis over broken bone Neurologic: Complains of no pain in the right foot but states she can feel me touching her toes. She is neurovascularly intact. Extremity: Posterior lower leg splint with sugar-tong component is removed. There is some serosanguineous drainage through the splint. The ankle appears grossly dislocated with a pressure ulcer developing over the medial aspect of the distal tibial fracture Psych: appropriate insight and affect, cooperative Course Vital Signs Vital signs: Vital Signs - 8 hr 11/07/23 14:03 Temperature 98.9 F Pulse Rate 95 H Respiratory Rate 16 Blood Pressure 140/78 Pulse Oximetry 97 Oxygen Delivery Method Room Air MDM - Extremity Injury (Lower) MDM Narrative Medical decision making narrative: CC: Right ankle fracture dislocation on October 28 now with seepage from the splint Complicating co-morbidities: Alcohol use disorder Data collected from: patient, Medical records reviewed: ER visit from the with x-rays and procedural sedation notes reviewed Differential considered: Pressure sore, cellulitis, osteomyelitis, recurrent ankle dislocation Exam documented above, pertinent findings include: Once her splint is removed clearly her ankle is dislocated there is a pressure sore of the medial malleolus. Her splint was quite worn out on the bottom suggesting she has been walking on her unstable ankle fracture Lab Test results independently reviewed as above. Pertinent findings: CBC is unremarkable, no anemia Metabolic panel shows slightly low sodium that seems stable, creatinine is appropriate. AST slightly elevated Imaging studies independently reviewed: Fracture dislocation with medial aspect of the tibia protruding through the skin no subcutaneous gas Consultations: Care is reviewed with Dr. Preciado. Agrees with antibiotics, we will evaluate the patient to see if a washout and external fixator might be most appropriate treatment for her. Care is reviewed with Dr. Naranjo, hospitalist she will be admitted to the hospitalist service for medical management with concern for alcohol withdrawal symptoms as well Treatments: Blood cultures obtained, antibiotics initiated Discussion: 73-year-old woman with right ankle fracture dislocation that appears she has been walking on with her posterior splint and sugar-tong support. Significant dislocation open skin wound secondary to pressure sore in the medial aspect with the distal aspect of her tibia protruding. Does not appear to be significantly infected and she is neurovascularly intact. He will be admitted to the hospitalist service with orthopedic consultation. Reviewed findings and concerns with the patient who agrees with the current plan. Discharge Plan Departure Patient Disposition: Admitted As Inpatient Clinical Impression: Open fracture dislocation of right ankle Admit Date/Time: 11/07/23 15:25 Admit Provider: Roge Naranjo
--- NOTE | 2023-11-07 14:26 | DI.RAD.S_ITS ---
PROCEDURE: XR ANKLE RT MIN 3V INDICATIONS: fracture with wound now TECHNIQUE: 3 views of the ankle were acquired. COMPARISON: [facility], CR, XR ANKLE RT MIN 3V, 10/29/2023, 21:34. [facility], CR, XR ANKLE RT MIN 3V, 10/29/2023, 19:41. FINDINGS: Bones: Significant interval displacement of the bi malleolar ankle fracture. The talus is dislocated laterally. Medial malleolus appears to protrude at the skin. The lateral malleolus fracture fragment is displaced posteriorly and laterally. Soft tissues: Soft tissue swelling is present. Calcaneal enthesopathy. IMPRESSION: Significant increased displacement of the bi malleolar fracture dislocation. Correlate with any open injury at the medial malleolar region. Dictated by: Vic Mcnair M.D. on 11/07/2023 at 15:44 Approved by: Vic Mcnair M.D. on 11/07/2023 at 15:45
[2023-11-07 14:48] LABS: Add Manual Diff / Slide Review NO; Basophils Absolute Auto 100 /uL (0-100); Basophils Percent Auto 0.6 % (0-2); Eosinophils Absolute Auto 100 /uL (0-450); Eosinophils Percent Auto 0.7 % (2-4); Hematocrit 40.3 % (36-46); Hemoglobin 13.7 g/dL (12.0-16.0); Lymphocytes Absolute Auto 1800 /uL (1100-4500); Lymphocytes Percent Auto 18.5 % (25-40); Mean Corpuscular Hemoglobin 35.7 PG (26-34); Mean Corpuscular Volume 105.1 fL (80-100); Monocytes Absolute Auto 1700 /uL (0-900); Monocytes Percent Auto 17.6 % (3-14); Neutrophils Absolute Auto 6100 /uL (1500-7000); Neutrophils Percent Auto 62.6 % (50-75); Platelet Count 345 X10^3/uL (150-400); Red Blood Cell Count 3.84 X10^6/uL (4.0-5.2); Red Cell Distribution Width 12.7 % (11.6-14.8); White Blood Cell Count 9.7 X10^3/uL (4.5-11.0)
[2023-11-07 14:54] LABS: Lactate (Lactic Acid) 1.4 mmol/L (0.7-2.1)
[2023-11-07 14:55] LABS: Alanine Aminotransferase 25 IU/L (<35); Albumin Globulin Ratio 1.1 (1.0-2.8); Alkaline Phosphatase 52 U/L (38-126); Aspartate Aminotransferase 46 IU/L (14-36); BUN Creatinine Ratio 28.3 (6-22); Bilirubin Total 1.2 mg/dL (0.2-1.3); Blood Urea Nitrogen 13 mg/dL (7-17); Calcium 9.4 mg/dL (8.4-10.2); Carbon Dioxide 19 mmol/L (22-32); Chloride 100 mmol/L (98-107); Estimated Glomerular Filt Rate > 60 mL/min (>60); Globulin 3.6 g/dL (1.7-4.1); Glucose 115 mg/dL (80-110); Potassium 3.9 mmol/L (3.4-5.1); Sodium 131 mmol/L (137-145); Total Protein 7.6 g/dL (6.3-8.2)
[2023-11-07] MEDS: cefTRIAXone 2,000 MG in SODIUM CHLORIDE 0.9% 100 ML 200 MG IV (15:00)
[2023-11-07 15:02] LABS: HEMOLYSIS 103 (0-50)
[2023-11-07] MEDS: VANCOMYCIN 1,250 MG/250 ML PIGGYBACK 250 MG IV (15:42)
--- NOTE | 2023-11-07 16:08 | P.HP_ITS ---
History of Present Illness History of Present Illness Date Patient Seen: 11/07/23 Chief complaint: Right ankle pain, infected Narrative: The patient was a 73-year-old female with history of alcohol use disorder who presented on October 28 with a left ankle fracture and dislocation that was relocated with sedation and splinted. She then went home and was seen of follow up by Orthopedics. She was scheduled for surgery on November 09. She presented today due to seepage on her bed through her splint. When the wound is examined several days ago at Orthopedics, it appeared to be fairly unremarkable and was not red. The patient has been weight-bearing intermittently when going to the bathroom. The emergency physician discuss this with Orthopedics who recommended admission for surgical examination and potential washout of the ankle and external fixation. Patient denies any fevers, or chills. There was no comment of purulence or foul smelling discharge from the wound. The concern is that there is an open fracture now. X-ray today did reveal significant medial displacement of the tibia with the medial malleolus is associated with the skin lesion that was noted clinically. [facility] Surgical History Status post laparoscopy Status post laparotomy Social History Smoking Status: Never smoker Meds Home Medications and Allergies Home Medications Medication Instructions Recorded Confirmed Type Fish Oil (Fish Oil 500 MG Softgel) 500 mg PO QDAY ##0 05/11/12 06/28/22 History VITAMIN D (Vitamin D3) 2,000 unit PO QDAY ##0 05/11/12 History [woman's multivitamin] 1 tab PO Q DAY ##0 05/11/12 History ascorbic acid (vitamin C) 500 mg 500 mg PO QDAY ##0 03/20/16 06/28/22 History tablet diltiazem HCl 180 mg 180 mg PO QDAY #30 caps 03/24/16 06/28/22 Rx capsule,extended release 24 hr pantoprazole 40 mg tablet,delayed 40 mg PO BID ##60 03/24/16 06/28/22 Rx release sucralfate 100 mg/mL oral 1,000 mg (10 mL) PO QID ##120 03/24/16 Rx suspension levothyroxine 75 mcg tablet 50 mcg PO Q DAY ##0 08/05/16 06/28/22 History (Synthroid) Allergies Allergy/AdvReac Type Severity Reaction Status Date / Time erythromycin base AdvReac Unknown NAUSEA Verified 11/07/23 14:11 Review of Systems Review of Systems Narrative: All else reviewed and otherwise unremarkable except as noted in the history and physical. Exam Vital Signs (past 8 hours): - 11/07/23 14:03 11/07/23 15:48 Temperature 98.9 F Pulse Rate 95 H 73 Respiratory Rate 16 16 Blood Pressure 140/78 139/67 Pulse Oximetry 97 98 Oxygen Delivery Method Room Air Room Air Oxygen Delivery Method Room Air Narrative Exam Narrative: NAD, alert and oriented, fluent speech, calm. Normocephalic skull, EOMI, anicteric sclera, symmetric pupils. Oropharynx unremarkable, no droop. Neck supple, midline trachea, no adenopathy. Lungs clear, normal rate and effort. Heart regular, no murmur gallop or rub. Abdomen is soft, non distended and non tender. Extremities are free of edema. Skin is free of rash or lesions. Joints are not swollen or deformed. Judgment appears to be normal. Objective Imaging Ankle x-ray:: Radiologist's impression: Significant increased displacement of the bi malleolar fracture dislocation. Correlate with any open injury at the medial malleolar region. Labs 11/07/23 14:29 11/07/23 14:29 Labs: Laboratory Results - last 24 hr 11/07/23 14:29 WBC 9.7 RBC 3.84 L Hgb 13.7 Hct 40.3 MCV 105.1 H MCH 35.7 H MCHC 34.0 RDW 12.7 Plt Count 345 Neut % (Auto) 62.6 Lymph % (Auto) 18.5 L [place] % (Auto) 17.6 H Eos % (Auto) 0.7 L Baso % (Auto) 0.6 Neut # (Auto) 6100 Lymph # (Auto) 1800 [place] # (Auto) 1700 H Eos # (Auto) 100 Baso # (Auto) 100 Sodium 131 L Potassium 3.9 Chloride 100 Carbon Dioxide 19 L BUN 13 Creatinine 0.46 L Estimated GFR > 60 BUN/Creatinine Ratio 28.3 H Glucose 115 H Lactate 1.4 Calcium 9.4 Total Bilirubin 1.2 AST 46 H ALT 25 Alkaline Phosphatase 52 Total Protein 7.6 Albumin 4.0 Globulin 3.6 Albumin/Globulin Ratio 1.1 Assessment & Plan Time-Based Coding :: [TOTAL MINUTES] spent with patient and on the chart (including review of chart, obtaining history, exam, reviewing outside data, placing orders, documenting exam and treatment plan, and counseling patient) on [DATE].
--- NOTE | 2023-11-07 17:28 | P.HP_ITS ---
History of Present Illness History of Present Illness Date Patient Seen: 11/07/23 Time Patient Seen: 17:28 Chief complaint: Right ankle pain, infected Narrative: This is a 73-year-old female who presented to [facility] Emergency room on 10/29/2023 with a right trimalleolar ankle fracture. She was seen in the emergency room and was placed in a splint. She was discharged to home. She notes she has been basically resting in bed but she has been getting up and using a walker to get to the bathroom. She denies a history of specific falls. She says she has been trying not to put weight on it. She does have a history of alcohol consumption and reportedly has had episodes of withdrawal in the past. Her is at bedside with her. She says about 3 days ago she noticed that there was something dripping from her ankle. [facility] Surgical History Status post laparoscopy Status post laparotomy Social History Smoking Status: Never smoker Meds Home Medications and Allergies Home Medications Medication Instructions Recorded Confirmed Type Fish Oil (Fish Oil 500 MG Softgel) 500 mg PO QDAY ##0 05/11/12 06/28/22 History VITAMIN D (Vitamin D3) 2,000 unit PO QDAY ##0 05/11/12 History [woman's multivitamin] 1 tab PO Q DAY ##0 05/11/12 History ascorbic acid (vitamin C) 500 mg 500 mg PO QDAY ##0 03/20/16 06/28/22 History tablet diltiazem HCl 180 mg 180 mg PO QDAY #30 caps 03/24/16 06/28/22 Rx capsule,extended release 24 hr pantoprazole 40 mg tablet,delayed 40 mg PO BID ##60 03/24/16 06/28/22 Rx release sucralfate 100 mg/mL oral 1,000 mg (10 mL) PO QID ##120 03/24/16 Rx suspension levothyroxine 75 mcg tablet 50 mcg PO Q DAY ##0 08/05/16 06/28/22 History (Synthroid) Allergies Allergy/AdvReac Type Severity Reaction Status Date / Time erythromycin base AdvReac Unknown NAUSEA Verified 11/07/23 14:11 Review of Systems Review of Systems Narrative: She was not lightheaded and has not had any recent chest pain shortness of breath or recurrent falls she is uncertain if she has had a fever at home. Exam Vital Signs (past 8 hours): - 11/07/23 14:03 11/07/23 15:48 11/07/23 17:05 Temperature 98.9 F Pulse Rate 95 H 73 86 Respiratory Rate 16 16 16 Blood Pressure 140/78 139/67 159/76 H Pulse Oximetry 97 98 97 Oxygen Delivery Method Room Air Room Air Room Air Oxygen Delivery Method Room Air Narrative Exam Narrative: She is alert and oriented, HEENT is benign, lungs are clear, cor regular rate and rhythm, abdomen soft and benign, examination of the right lower extremity shows gross malalignment of the right ankle, there is a about a 2 cm laceration over the medial tibia and tibial plafond with grossly exposed bone which is dripping pus, there is marked swelling of the right lower extremity, she has some generalized numbness but does have adequate capillary refill, skin is intact laterally, she can fire toe flexors and extensors Objective Labs 11/07/23 14:29 11/07/23 14:29 Labs: Laboratory Results - last 24 hr 11/07/23 14:29 WBC 9.7 RBC 3.84 L Hgb 13.7 Hct 40.3 MCV 105.1 H MCH 35.7 H MCHC 34.0 RDW 12.7 Plt Count 345 Neut % (Auto) 62.6 Lymph % (Auto) 18.5 L [place] % (Auto) 17.6 H Eos % (Auto) 0.7 L Baso % (Auto) 0.6 Neut # (Auto) 6100 Lymph # (Auto) 1800 [place] # (Auto) 1700 H Eos # (Auto) 100 Baso # (Auto) 100 Sodium 131 L Potassium 3.9 Chloride 100 Carbon Dioxide 19 L BUN 13 Creatinine 0.46 L Estimated GFR > 60 BUN/Creatinine Ratio 28.3 H Glucose 115 H Lactate 1.4 Calcium 9.4 Total Bilirubin 1.2 AST 46 H ALT 25 Alkaline Phosphatase 52 Total Protein 7.6 Albumin 4.0 Globulin 3.6 Albumin/Globulin Ratio 1.1 Assessment & Plan Assessment and plan (1) Open fracture dislocation of right ankle: Status: Acute (2) Abrasion of ankle, right: Status: Acute (3) Dislocation of ankle, right, closed: Status: Acute (4) Fracture of right ankle: Status: Acute (5) Alcohol withdrawal syndrome: Status: Acute Plan I have recommended irrigation and debridement and open reduction of the ankle. She has a grossly displaced ankle fracture. She has grossly exposed and contaminated bone. Long-term more definitive care to include external fixation versus open reduction internal fixation was discussed in detail with the patient. Does not appear safe to open her fibula at this point. She does have obviously infected tissue and maybe a candidate for external fixation. Serious nature of the problem including a deep joint infection comminuted fracture and skin breakdown was discussed with the patient. The procedure options risks benefits and complications were discussed in detail. We are going to proceed with irrigation and debridement and an open reduction on an emergent basis. I anticipate she will require additional surgery either in 2-3 days for dressing change and repeat wound check possible external fixation versus open reduction internal fixation. Time-Based Coding :: [TOTAL MINUTES] spent with patient and on the chart (including review of chart, obtaining history, exam, reviewing outside data, placing orders, documenting exam and treatment plan, and counseling patient) on [DATE].
--- NOTE | 2023-11-07 17:51 | P.OP_ITS ---
Operative Date/Time/Diagnoses Date of procedure: 11/07/23 Time of procedure: 17:51 Pre-op diagnosis: Grade 2 open trimalleolar ankle fracture Post-op diagnosis: same Procedure & Clinicians Procedure: Open reduction right ankle fracture, irrigation and debridement excisional soft tissue and bone fragments Same procedure as scheduled: Yes Indications: This is a 73-year-old female who is 9 days status post a right trimalleolar ankle fracture. She says she has basically been at home but she noticed something dripping from her ankle a couple of days ago. She came to the emergency room for further evaluation. Her exam showed an open right ankle fracture with exposed bone and infectious drainage. She was brought to the operating room on an emergent basis for irrigation and debridement and open reduction. She was not felt to be a candidate for definitive fixation due to the obvious infection. Procedure options risks benefits and complications and significant concerns regarding the viability of her foot and ankle were discussed. Surgeon: Joan Preciado Click Yes if Unassisted: Yes Anesthesia Type: General Operative Notes Findings: Open right ankle, grossly contaminated wound, adequate reduction, Closure Type: primary Specimen(s): none sent Estimated Blood Loss (mL): 100 Blood products transfused: none Procedure in detail: Patient was brought to the operating room. Her right lower extremity was prepped draped standard sterile fashion. Time-out was performed. She was given IV antibiotics. Patient's ankle was meticulously irrigated with normal saline. The transverse incision was extended proximally. This allowed adequate irr igation and debridement of the ankle. A few small bone chips and contaminated hematoma were removed. The tibial plafond was grossly exposed as well as the fracture through the medial malleolus. The bone was meticulously irrigated with about 3 L of normal saline. The ankle was then meticulously reduced. It was somewhat difficult to achieve an adequate reduction. It did require longitudinal traction and specific manipulation. The fracture continued to be unstable after reduction. Reduction was confirmed with fluoroscopy. The skin was closed very loosely with interrupted nylon. It was dressed sterilely with Xeroform and placed in a bulky [place] well-padded splint. I initially placed a well-padded bulky [place] but was unhappy with the overall reduction and remove the bulky [place] and re reduced the fracture and specifically held it careful molding during hardening of the plaster. Repeat fluoroscopy confirmed adequate reduction. She tolerated the procedure well. Complications none. Complications: none Post-operative Condition: stable Disposition: Acute Care Plan for aftercare: IV antibiotics and hospital admission. Anticipate return to the operating room on Tuesday or for dressing change and wound check and possible application of an external fixator versus open reduction internal fixation of the lateral malleolus and possible posterior malleolus open reduction internal fixation.
[2023-11-07] MEDS: LACTATED RINGERS 1,000 ML 42 ML IV (18:01)
--- NOTE | 2023-11-07 18:37 | SUR.OPER ---
Supine on padded OR bed, head on pillow, arms secured on padded arm boards at <90 degrees abduction, legs uncrossed, safety belt at thigh, tape over blanket over lower legs. Bump under the right hip.
[2023-11-07] MEDS: SODIUM CHLORIDE IRRIG SOLUTION 3,000 ML, GENTAMICIN 240 MG IRR (18:40)
[2023-11-07] MEDS: VANCOMYCIN 1,000 MG VIAL 1000 MG TOP (18:41)
--- NOTE | 2023-11-07 19:38 | EKG_ITS ---
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
--- NOTE | 2023-11-07 20:01 | SUR.PHASEI ---
Pt transferred to room 209 in stable condition. Received in room by NGUYỄN Campbell. at bedside. Rings x2 remain with pt.
[2023-11-07] MEDS: LACTATED RINGERS 1,000 ML 100 ML IV (20:34)
[2023-11-07] MEDS: PANTOPRAZOLE DR 40 MG TABLET PO (21:22)
[2023-11-07] MEDS: DOCUSATE 100 MG CAPSULE PO (21:22)
[2023-11-07] MEDS: SENNOSIDES 8.6 MG TABLET 17.2 MG PO (21:22)
[2023-11-07] MEDS: CEFAZOLIN 2 GM/100 ML PREMIX 100 ML IV (21:22)
[2023-11-07] MEDS: ACETAMINOPHEN 325 MG TABLET 650 MG PO (21:22)
[2023-11-07] MEDS: ASPIRIN EC 81 MG TABLET PO (21:22)
--- NOTE | 2023-11-07 22:18 | PM.HP.1 ---
History of Present Illness History of Present Illness Chief complaint: Right ankle pain, infected Narrative: 73 years old female with history of hypothyroidism, GERD, hyperlipidemia, alcohol abuse who was seen on October 28 with left ankle fracture and dislocation. After sedation and splinted she went home and was follow-up with orthopedic surgery. The patient presented today after seeing some seepage on her bed through the splint. She was seen several days ago by orthopedic surgery for follow-up and wound was clean and unremarkable. On examination today the patient had open ankle fracture with exposed bones and infectious drainage. Patient was just having emergent irrigation debridement and open reduction of her ankle and was started on antibiotics. Her last alcohol drink was 2 weeks ago. Denies any withdrawal symptoms. [facility] Surgical History Status post laparoscopy Status post laparotomy Social History household members: spouse Smoking Status: Never smoker alcohol intake: current Meds Home Medications and Allergies Home Medications Medication Instructions Recorded Confirmed Type Fish Oil (Fish Oil 500 MG Softgel) 500 mg PO QDAY ##0 05/11/12 06/28/22 History VITAMIN D (Vitamin D3) 2,000 unit PO QDAY ##0 05/11/12 History [woman's multivitamin] 1 tab PO Q DAY ##0 05/11/12 History ascorbic acid (vitamin C) 500 mg 500 mg PO QDAY ##0 03/20/16 06/28/22 History tablet diltiazem HCl 180 mg 180 mg PO QDAY #30 caps 03/24/16 06/28/22 Rx capsule,extended release 24 hr pantoprazole 40 mg tablet,delayed 40 mg PO BID ##60 03/24/16 06/28/22 Rx release sucralfate 100 mg/mL oral 1,000 mg (10 mL) PO QID ##120 03/24/16 Rx suspension levothyroxine 75 mcg tablet 50 mcg PO Q DAY ##0 08/05/16 06/28/22 History (Synthroid) Allergies Allergy/AdvReac Type Severity Reaction Status Date / Time erythromycin base AdvReac Unknown NAUSEA Verified 11/07/23 14:11 Review of Systems Review of Systems ROS: Yes All systems reviewed with the patient and are negative except as otherwise documented Constitutional Constitutional: Reports as per HPI and Reports system reviewed and no additional complaints, except as documented Eyes Eyes: Reports as per HPI and Reports system reviewed and no additional complaints, except as documented ENT Ears, Nose, Mouth, and Throat: Yes as per HPI and Yes system reviewed and no additional complaints, except as documented Cardiovascular Cardiovascular: Reports system reviewed and no additional complaints, except as documented Respiratory Respiratory: Reports system reviewed and no additional complaints, except as documented Gastrointestinal Gastrointestinal: Reports system reviewed and no additional complaints, except as documented Genitourinary Genitourinary: Reports system reviewed and no additional complaints, except as documented Musculoskeletal Musculoskeletal: Reports system reviewed and no additional complaints, except as documented, Reports abnormal gait and Reports numbness Neurologic Neurologic: Reports system reviewed and no additional complaints, except as documented, Reports abnormal gait, Reports confusion and Reports numbness Psychiatric Psychiatric: Reports system reviewed and no additional complaints, except as documented and Reports confusion Exam Vital Signs (past 8 hours): - 11/07/23 15:48 11/07/23 17:05 11/07/23 17:46 Temperature 98 F Pulse Rate 73 86 87 Respiratory Rate 16 16 14 Blood Pressure 139/67 159/76 H 139/78 Pulse Oximetry 98 97 97 Oxygen Delivery Method Room Air Room Air Room Air Oxygen Flow Rate 11/07/23 19:17 11/07/23 19:22 11/07/23 19:27 Temperature 97.3 F L Pulse Rate 91 H 85 82 Respiratory Rate 16 14 12 Blood Pressure 121/62 122/64 133/66 Pulse Oximetry 97 99 99 Oxygen Delivery Method Room Air Room Air Room Air Oxygen Flow Rate 11/07/23 19:32 11/07/23 19:42 11/07/23 20:01 Temperature 97.4 F L 97 F L Pulse Rate 84 80 78 Respiratory Rate 16 13 16 Blood Pressure 131/67 144/86 H 136/79 Pulse Oximetry 99 97 98 Oxygen Delivery Method Room Air Room Air Oxygen Flow Rate 0 11/07/23 20:30 11/07/23 20:30 11/07/23 21:00 Temperature Pulse Rate 74 79 Respiratory Rate 18 Blood Pressure 157/133 H 150/71 H Pulse Oximetry 98 98 100 Oxygen Delivery Method Room Air Oxygen Flow Rate 0 0 Oxygen Delivery Method Room Air Oxygen Flow Rate 0 Const General: cooperative, comfortable and well developed Orientation: alert and oriented x3 HENMT Head: normal to inspection, normocephalic and atraumatic Face and sinus: normal facial exam Mouth: oral mucosae normal and moist mucous membranes Throat: posterior oropharynx normal Eyes General: appearance normal, both eyes and all related structures Pupils: PERRL EOM: EOM intact bilaterally Neck Neck: normal visual inspection and full ROM Chest Chest: normal inspection of the chest Resp Effort & Inspection: normal respiratory effort and able to speak in complete sentences Auscultation: clear to auscultation bilaterally Cardio Palpation: normal PMI Rate: regular rate Rhythm: regular rhythm Heart Sounds: S1 normal and S2 normal GI Inspection: normal to inspection Palpation: soft and no hepatosplenomegaly Auscultation: normal bowel sounds Skin General: no rashes or lesions noted Lesions: no lesions Rashes: no rashes Trauma: no lacerations or abrasions Neuro General: patient alert, patient awake, patient oriented x3 and no focal motor deficits Cranial Nerves: CN's II-XI intact bilaterally Cognition: normal cognition Speech: speech normal Gait: normal gait Motor: muscle tone normal throughout Sensory Exam: no sensory deficits noted Extrem General: full ROM and no calf tenderness Psych Appearance: grossly normal Mental Status: mental status grossly normal Speech and Movement: speech and movement normal Objective Labs 11/07/23 14:29 11/07/23 14:29 Labs: Laboratory Results - last 24 hr 11/07/23 14:29 WBC 9.7 RBC 3.84 L Hgb 13.7 Hct 40.3 MCV 105.1 H MCH 35.7 H MCHC 34.0 RDW 12.7 Plt Count 345 Neut % (Auto) 62.6 Lymph % (Auto) 18.5 L [place] % (Auto) 17.6 H Eos % (Auto) 0.7 L Baso % (Auto) 0.6 Neut # (Auto) 6100 Lymph # (Auto) 1800 [place] # (Auto) 1700 H Eos # (Auto) 100 Baso # (Auto) 100 Sodium 131 L Potassium 3.9 Chloride 100 Carbon Dioxide 19 L BUN 13 Creatinine 0.46 L Estimated GFR > 60 BUN/Creatinine Ratio 28.3 H Glucose 115 H Lactate 1.4 Calcium 9.4 Total Bilirubin 1.2 AST 46 H ALT 25 Alkaline Phosphatase 52 Total Protein 7.6 Albumin 4.0 Globulin 3.6 Albumin/Globulin Ratio 1.1 Assessment & Plan Assessment & Plan narrative: Left ankle fracture. Status post irrigation debridement and open reduction of her ankle. -Continue with antibiotics -Pain medications as needed -Orthopedic surgery follow-up -IV fluids -DVT prophylaxis per surgery Alcohol abuse. The patient denies any withdrawal symptoms. Will monitor for now. GERD. Will start PPI History of A-fib. Denies taking any diltiazem now. Telemetry. Hypothyroidism. Restart levothyroxine. Time-Based Coding :: [TOTAL MINUTES] spent with patient and on the chart (including review of chart, obtaining history, exam, reviewing outside data, placing orders, documenting exam and treatment plan, and counseling patient) on [DATE]. Quality VTE Deep Vein Thrombosis/Pulmonary Embolism Present on Admission: No MIPS - Admit I confirm the patient?s Advance Care Plan is present, Code status is documented, Surrogate decision maker is in patient?s record [If Yes, STOP here]: Yes MIPS - Meds 'Current medications' to include all prescriptions, [id number] products, herbals, cannabis/cannabidiol products, and vitamin/mineral/dietary (nutritional) supplements. I have utilized all available resources to obtain, update, or review the patient?s current medications. [If Yes, STOP here]: Yes
[2023-11-07] MEDS: OXYCODONE IR 5 MG TABLET PO (23:56)
[2023-11-08] VITALS: O2SAT 98
[2023-11-08 03:00] VITALS: BP 137/73; PULSE 77; RESP 18; TEMP 36.7; O2SAT 97
[2023-11-08 04:00] VITALS: O2SAT 99
[2023-11-08] MEDS: CEFAZOLIN 2 GM/100 ML PREMIX 100 ML IV ×3 (05:04→21:45)
[2023-11-08] MEDS: VANCOMYCIN 1,500 MG/300 ML PIGGYBACK 200 MG IV (05:55)
[2023-11-08 06:56] LABS: Add Manual Diff / Slide Review NO; Basophils Absolute Auto 0 /uL (0-100); Basophils Percent Auto 0.4 % (0-2); Eosinophils Absolute Auto 100 /uL (0-450); Eosinophils Percent Auto 1.6 % (2-4); Hematocrit 36.8 % (36-46); Hemoglobin 12.7 g/dL (12.0-16.0); Lymphocytes Absolute Auto 1100 /uL (1100-4500); Lymphocytes Percent Auto 14.1 % (25-40); Mean Corpuscular HGB Conc 34.4 % (30-36); Mean Corpuscular Volume 104.8 fL (80-100); Monocytes Absolute Auto 1100 /uL (0-900); Monocytes Percent Auto 14.2 % (3-14); Neutrophils Absolute Auto 5600 /uL (1500-7000); Neutrophils Percent Auto 69.7 % (50-75); Platelet Count 327 X10^3/uL (150-400); Red Blood Cell Count 3.52 X10^6/uL (4.0-5.2); Red Cell Distribution Width 12.7 % (11.6-14.8)
[2023-11-08 07:05] LABS: BUN Creatinine Ratio 16.3 (6-22); Blood Urea Nitrogen 7 mg/dL (7-17); Calcium 8.8 mg/dL (8.4-10.2); Carbon Dioxide 25 mmol/L (22-32); Chloride 99 mmol/L (98-107); Estimated Glomerular Filt Rate > 60 mL/min (>60); Glucose 99 mg/dL (80-110); HEMOLYSIS < 15 (0-50); Potassium 2.9 mmol/L (3.4-5.1); Sodium 132 mmol/L (137-145)
[2023-11-08 08:00] VITALS: BP 124/87; PULSE 64; RESP 16; TEMP 36.4; O2SAT 100
[2023-11-08 08:29] LABS: Acinetobacter calcoa-baumannii Not Detected (Not Detect); Bacteroides fragilis Not Detected (Not Detect); CTX-M Resistance Not Detected (Not Detect); Candida albicans Not Detected (Not Detect); Candida auris Not Detected (Not Detect); Candida glabrata Not Detected (Not Detect); Candida krusei Not Detected (Not Detect); Candida parapsilosis Not Detected (Not Detect); Candida tropicalis Not Detected (Not Detect); Cryptococcus neoformans/gatti Not Detected (Not Detect); Enterobacter cloacae complex Detected (Not Detect); Enterobacterales Detected (Not Detect); Enterococcus faecalis Not Detected (Not Detect); Enterococcus faecium Not Detected (Not Detect); Haemophilus influenzae Not Detected (Not Detect); IMP Resistance Not Detected (Not Detect); KPC Resistance Not Detected (Not Detect); Klebsiella aerogenes Not Detected (Not Detect); Listeria monocytogenes Not Detected (Not Detect); NDM Resistance Not Detected (Not Detect); Neisseria meningitidis Not Detected (Not Detect); OXA-48-like Resistance Not Detected (Not Detect); Proteus species Not Detected (Not Detect); Pseudomonas aeruginosa Not Detected (Not Detect); Salmonella species Not Detected (Not Detect); Serratia marcescens Not Detected (Not Detect); Staphylococcus epidermidis Not Detected (Not Detect); Staphylococcus lugdunensis Not Detected (Not Detect); Staphylococcus species Not Detected (Not Detect); Stenotrophomonas maltophilia Not Detected (Not Detect); Streptococcus agalactiae (Gr B Not Detected (Not Detect); Streptococcus pneumonia Not Detected (Not Detect); Streptococcus pyogenes (Gr A) Not Detected (Not Detect); Streptococcus species Not Detected (Not Detect); VIM Resistance Not Detected (Not Detect); mcr-1 Resistance Not Detected (Not Detect)
[2023-11-08] MEDS: DOCUSATE 100 MG CAPSULE PO ×2 (08:38→21:44)
[2023-11-08] MEDS: ASCORBIC ACID 500 MG TABLET PO (08:38)
[2023-11-08] MEDS: SUCRALFATE 1 GM/10 ML ORAL SUSP PO ×3 (08:38→21:44)
[2023-11-08] MEDS: PANTOPRAZOLE DR 40 MG TABLET PO ×2 (08:38→21:44)
[2023-11-08] MEDS: CHOLECALCIFEROL (VITAMIN D3) 1,000 UNIT TABLET 2000 UNIT PO (08:38)
[2023-11-08] MEDS: ASPIRIN EC 81 MG TABLET PO ×2 (08:38→21:45)
[2023-11-08] MEDS: MULTIVITAMIN 1 TABLET 1 TAB PO (08:38)
[2023-11-08] MEDS: polyethylene glycoL 3350 17 GM POWD.PACK PO (08:38)
[2023-11-08] MEDS: OXYCODONE IR 5 MG TABLET PO ×2 (08:38→12:06)
[2023-11-08] MEDS: POTASSIUM CHLORIDE 20 MEQ TAB 40 MEQ PO ×2 (08:40→14:49)
[2023-11-08 08:48] LABS: Magnesium 1.6 mg/dL (1.6-2.3)
--- NOTE | 2023-11-08 09:38 | PC.NURSE ---
Patient CIWA 0. She has a splinted cast on her r.ankle that is cdi, Lab byrne and patient is growing gram - bacilli in her blood culture. Cleaned up after breakfast. Patient is able to wiggle her toes, and top of her foot is warm. She is comfortable at this time.
--- NOTE | 2023-11-08 10:05 | PT.IIE ---
Current Diagnoses Alcohol dependence with withdrawal, unspecified (11/07/23) Other fracture of right lower leg, initial encounter for closed fracture (11/07/23) Other fracture of right lower leg, initial encounter for open fracture type I or II (11/07/23) Abrasion, right ankle, initial encounter (11/07/23) Dislocation of right ankle joint, initial encounter (11/07/23) Surgery Performed Operation Date: 11/07/23 17:15 Actual Procedures p right ankle I+D, open reduction right ankle(Right) - Joan Preciado MD Operation Date: 11/09/23 15:15 <No data on this case meets the specified criteria> Surgical History (Last Reviewed 11/07/23 @ 17:33 by Joan Preciado MD) Status post laparoscopy Status post laparotomy Physical Therapy Inpatient Evaluation/Re-Eval M1 PT/OT-IP Prior Functional Status Start: 11/08/23 13:00 Freq: NEEDED Status: Active Protocol: Document 11/08/23 10:05 AB (Rec: 11/08/23 13:19 [id number]) Medical Review Prior Functional Status Medical History Reviewed Yes Communication able to make needs known Mobility and Gait pt stated that since she had her ankle fx, she has just been in bed or w/c but able to transfer without AD from w/c to bed. stated that she walks with a FWW to the toilet. Social History Household Members spouse Living Arrangements House Number of Floors (Floors) One Floor Number of Stairs To Enter/Railing? no steps to enter Home Environment High Toilet,Walk in Shower Home Equipment Front Wheel Walker,Manual Wheelchair,Shower Seat with Backrest,Hand Held Shower,Grab Bars Near Toilet,Grab Bars In Shower Additional Social History Comment pt stated that she has been doing sponge bathing since ankle fx M2 PT-IP Current Condition Start: 11/08/23 13:00 Freq: NEEDED Status: Active Protocol: Document 11/08/23 10:05 AB (Rec: 11/08/23 13:19 [id number]) Physical Therapy Current Condition Current Condition Evaluation Date 11/08/23 Treatment Diagnosis s/p R ankle I&D; difficulty in walking Onset Date 11/07/23 M3 PT-IP Subjective Start: 11/08/23 13:00 Freq: NEEDED Status: Active Protocol: Document 11/08/23 10:05 AB (Rec: 11/08/23 13:19 AB [id number]) Subjective Physical Therapy Visit Type Type Initial Evaluation Visit Start Time 10:05 Visit Stop Time 10:55 Number of [employer] Visits 0 Physical Therapy Visit Comments Patient Comments agreeable to do PT Therapy Pain Assessment Pain When Pain Assessed At Rest Pain Present Pain Present Pain Reported Location Right Ankle Intensity 5 Scale Used Numeric (0 - 10) Pain Management Techniques Distraction,Elevation, Modification of Treatment,Re- positioning,Timing of Activity with Medications M4 PT-IP Mobility and Gait Start: 11/08/23 13:00 Freq: NEEDED Status: Active Protocol: Document 11/08/23 10:05 AB (Rec: 11/08/23 13:19 AB [id number]) PT-Bed Mobility Assessment Supine to Sit Supine to Sit Standby Assistance PT-Transfer Assessment Sit to and From Stand Sit to and from Stand Maximum Assistance,1 Person Assistance,2 Person Assistance ,Use of Upper Extremities Equipment Transfer Assistive Device Gait Belt,Front Wheeled Walker Orthotic/Prosthetic Devices or Brace: No Transfers Transfer Destination Chair Transfer Technique Stand Step Pivot Transfer Ability Level of Assist Maximum Assistance,1 Person Assistance,2 Person Assistance ,Use of Upper Extremities Comments Mobility Comments pt supine in bed and agreeable to do PT. obtained PLOF and home set up. educated pt regarding NWB on RLE. pt completed supine to sit SBA . able to sit on EOB SBA. educated on how to do sit<> stand and be able to maintain NWB on RLE and how to transfer while maintaining NWB. pt is impulsive and needing max cues . completed sit to stand from EOB x 2 attempts max A and max cues. pt requiring max A and max cues to maintain NWB on RLE. step transfer to chair using FWW max A x 1-2 and max cues. attempted sit to stand from the chair x 4 and pt unable to stand despite max A provided and pt tends to push and put wiehgt on RLE. positioned pt on the chair. call light and table placed within reach. informed pt regarding SNF rehab and understood. Gait Assessment Comments Gait Comments unable at this time PT-Balance Assessment Sitting Balance and Reactions Static Sitting Balance Ability Good Dynamic Sitting Balance Ability Good Standing Balance and Reactions Static Standing Balance Ability Poor Dynamic Standing Balance Ability Poor Device Used FWW M5 PT-IP Objective Assessments Start: 11/08/23 13:00 Freq: NEEDED Status: Active Protocol: Document 11/08/23 10:05 AB (Rec: 11/08/23 13:19 AB [id number]) Orientation Orientation/Cognition Level of Alertness Alert Orientation Name,Place,Situation Safety Awareness Decreased Safety Awareness Memory Description Short Term Impaired Gross Range of Motion Lower Extremity ROM Assessment Within Functional Limits Impairments R ankle on cast Strength Lower Extremity Strength Assessment Right Impaired Ankle on cast Muscle Tone Muscle Tone WNL Yes M6 PT-IP Treatment Start: 11/08/23 13:00 Freq: NEEDED Status: Active Protocol: Document 11/08/23 10:05 AB (Rec: 11/08/23 13:19 AB [id number]) Physical Therapy Treatment Education Education Provided Precautions,Weight Bearing Status,Safety M7 PT-IP Assessment and Plan Start: 11/08/23 13:00 Freq: NEEDED Status: Active Protocol: Document 11/08/23 10:05 AB (Rec: 11/08/23 13:19 AB [id number]) PT Summary Assessment and Plan Potential Rehabilitation Potential Fair Status of Condition at Evaluation Evolving Summary Impairments Pain,ROM,Strength,Balance, Coordination,Sensation,Tone, Cognition,Bed Mobility, Transfers,Gait,Activity Tolerance Assessment Summary pt is a 73 y/o F who had a fall 10/28 and sustained a R ankle fx. pt's ankle was put on a splint and was d/c'd home . pt presented to the ED for R splint having drainage/ seepage. pt underwent I&D and has plans for ORIF tue/ . pt is NWB on RLE at this time. pt needing max A x 1-2 with sit to stand from EOB but unable to stand from chair despite max A provided. pt is impulsive and unable to maintain NWB on RLE. Recommending use of mechanical lift transfers with nursing staff at this time. pt will require SNF rehab to improve overall strength and mobility. Goals Bed Mobility Goal Independent Transfer Goal Independent,Front Wheeled Walker Gait Goal Independent,Front Wheel Walker Gait Distance 25 Days to Meet Goals 10 Frequency of Treatment Frequency Of Treatment Once a Day Treatment Plan Physical Therapy Treatment Plan Bed Mobility Training,Transfer Training,Gait Training, Therapeutic Exercise,Balance Retraining,Post Op Education, Discharge Planning,Hot or Cold Pack,Neuromuscular Re-ed, Coordination Retraining,Manual Therapy Weight Bearing Status Weight Bearing Status Non-Weight Bearing Allowed Weight Bearing Amount (enter % RLE NWB or #) (%) Recommendations To Nursing Amount of Assist Needed Mechanical Lift Discharge Recommendations PT Discharge Recommendations SNF Rehab Transportation Needs at Discharge Wheelchair/Cabulance
[2023-11-08] MEDS: ACETAMINOPHEN 325 MG TABLET 650 MG PO (12:06)
[2023-11-08] MEDS: MAGNESIUM CHLORIDE 64 MG TABLET 128 MG PO (12:07)
--- NOTE | 2023-11-08 12:28 | CM.DANOTE ---
DCP Initial Assessment Note: Payer: [facility] PCP: Amina Dukes Patient is a 73 y/o F admitted with infected right ankle, recent sx for open fx. Chart reviewed and spoke with patient at the bedside. Patient resides at home with her spouse and prior to the initial surgery for her open ankle fx on 10.28 she was independent with all ADLs, her spouse has assisted as needed post op. Patient admitted after fx open again and infected. Patient not agreeable to SNF but would consider HHC if needed. Per chart, patient to return to OR for dressing change and wound check, possible fixation again. Will f/u pending PT eval. D/C Plan: Home with spouse, possible HHC BILL [place] Discharge Planning/Care Management CM Discharge Assessment Start: 11/08/23 12:22 Freq: Status: Active Protocol: Document 11/08/23 12:23 KG (Rec: 11/08/23 12:27 KG [id number]) Discharge Planning Assessment Assigned Waiter/Waitress [employer] Rosita Menjivar DPOA/Assigned Designee Name Lynn Johnston Advance Directives? Yes Advance Directives on File No History Provided By Patient Expected Length of Stay 2 Prior Living Arrangements House Household Members spouse Type of transporation used prior to Relies on Others admit Independent with ADL's Yes Is patient alert and oriented? Yes Needs Assistance With Bathing,Grooming,Home Chores / Shopping Comment Prev ind with all ADLs prior to initial surgery on R Ankle Fx 10/29/23, spouse assists as needed post op Caregiver for Another No Patient/Family Preference Home with Home Health,OP PT Therapy,OP OT Therapy Comment Possible need for HHC/SNF given recurrance of open fx with infection, pending PT eval. Barriers to Discharge No Discharge Plan Home with Home Health Medicare Choice List Provided No Has Agency SNF been contacted No
--- NOTE | 2023-11-08 13:32 | OT.IPNOTE ---
Pt refusing OT eval today and agreed to do tomorrow. Pt agrees best to go to skilled rehab when medically stable.
--- NOTE | 2023-11-08 16:45 | P.PN_ITS ---
Exam Vital Signs (past 8 hours): - 11/08/23 09:32 11/08/23 13:00 Oxygen Delivery Method Room Air Room Air Oxygen Delivery Method Room Air Oxygen Flow Rate 0 Narrative Exam Narrative: Gen: No acute distress CV: RRR Pulm: No resp. distress Ext: R leg bandage in place, distal toes with good color and sensation. Objective Labs 11/08/23 06:10 11/08/23 06:10 Labs: Laboratory Results - last 24 hr 11/07/23 11/08/23 14:29 06:10 WBC 8.0 RBC 3.52 L Hgb 12.7 Hct 36.8 MCV 104.8 H MCH 36.0 H MCHC 34.4 RDW 12.7 Plt Count 327 Neut % (Auto) 69.7 Lymph % (Auto) 14.1 L [place] % (Auto) 14.2 H Eos % (Auto) 1.6 L Baso % (Auto) 0.4 Neut # (Auto) 5600 Lymph # (Auto) 1100 [place] # (Auto) 1100 H Eos # (Auto) 100 Baso # (Auto) 0 Sodium 132 L Potassium 2.9 L Chloride 99 Carbon Dioxide 25 BUN 7 Creatinine 0.43 L Estimated GFR > 60 BUN/Creatinine Ratio 16.3 Glucose 99 Calcium 8.8 Magnesium 1.6 A.calcoaceticus-baumannii cmplx PCR Not detected Bacteroides fragilis Not detected Sherrie albicans (PCR) Not detected Sherrie auris (PCR) Not detected C. glabrata (PCR) Not detected C. krusei (PCR) Not detected C. parapsilosis (PCR) Not detected C. tropicalis (PCR) Not detected C. neoform/gattii (PCR) Not detected Enterobacterales (PCR) Detected E. cloacae complex PCR Detected Enterococc faecalis PCR Not detected Enterococc faecium PCR Not detected E. coli (PCR) Not detected H. influenzae (PCR) Not detected Klebsiella aerogenes (PCR) Not detected Klebsiella oxytoca PCR Not detected Klebsiella pneumoniae Not detected List. monocytogenes PCR Not detected N. meningitidis (PCR) Not detected Proteus species (PCR) Not detected Salmonella spp. (PCR) Not detected Serratia marcescens PCR Not detected Staphylococcus sp PCR Not detected Staph aureus (PCR) Not detected mecA/C & MREJ Resist Gene Not applicable mecA/C-Methicil Resis Gene Not applicable mcr-1 Colistin Res Gene PCR Not detected Staph epidermidis (PCR) Not detected Staph lugdunensis PCR Not detected S. maltophilia (PCR) Not detected Streptococcus sp PCR Not detected Group A Strep (PCR) Not detected Strep agalactiae (PCR) Not detected Strep pneumoniae (PCR) Not detected P. aeruginosa (PCR) Not detected King/B-Vanco Res Genes Not applicable blaIMP Car res Gene PCR Not detected KPC-Carbap Res Gene PCR Not detected blaNDM Car Res Gene PCR Not detected OXA-48 Carbapenem Resis Gene (PCR) Not detected blaVIM Car Res Gene PCR Not detected CTX-M Gene Resistance (PCR) Not detected PFSH Surgical History Status post laparoscopy Status post laparotomy Social History household members: spouse Smoking Status: Never smoker alcohol intake: current Assessment & Plan Assessment & Plan narrative: Left ankle fracture, open with gram negative bacteremia. Status post irrigation debridement and open reduction of her ankle. -Continue with antibiotics, continue cefazolin follow up final cultures from wound and blood cultures. -Pain medications as needed -Orthopedic surgery follow-up -IV fluids can continue today. -DVT prophylaxis per surgery Alcohol abuse. The patient denies any withdrawal symptoms. Will monitor for now. GERD. continue PPI History of A-fib. Denies taking any diltiazem now. Telemetry. Hypothyroidism. Restart levothyroxine. Code: Full Dispo: Will likely need SNF, may need additional surgery in the coming days per orthopedics so timing is unclear at this time. Time-Based Coding :: [TOTAL MINUTES] spent with patient and on the chart (including review of chart, obtaining history, exam, reviewing outside data, placing orders, documenting exam and treatment plan, and counseling patient) on [DATE]. Quality VTE Deep Vein Thrombosis/Pulmonary Embolism Present on Admission: No
[2023-11-08 20:00] VITALS: BP 145/90; PULSE 99; RESP 18; TEMP 36.4; O2SAT 97
[2023-11-08] MEDS: SENNOSIDES 8.6 MG TABLET 17.2 MG PO (21:45)
[2023-11-08 22:10] LABS: BUN Creatinine Ratio 20.5 (6-22); Blood Urea Nitrogen 9 mg/dL (7-17); Calcium 9.2 mg/dL (8.4-10.2); Carbon Dioxide 23 mmol/L (22-32); Chloride 102 mmol/L (98-107); Estimated Glomerular Filt Rate > 60 mL/min (>60); Glucose 103 mg/dL (80-110); HEMOLYSIS < 15 (0-50); Potassium 4.4 mmol/L (3.4-5.1); Sodium 130 mmol/L (137-145)
[2023-11-09] VITALS (14 sets, daily range): BP systolic 118–162; BP diastolic 61–98; PULSE 85–102; RESP 12–20; TEMP 36.2–36.8; O2SAT 95–100; BMI 25.8
--- NOTE | 2023-11-09 | DI.RAD.S_ITS ---
PROCEDURE: XR ANKLE RT MIN 3V INDICATIONS: RIGHT ORIF ANKLE TECHNIQUE: Multiple fluoroscopic spot views of the ankle were acquired. Fluoroscopy COMPARISON: [facility], [place], XR ANKLE RT MIN 3V, 11/07/2023, 14:27. FINDINGS / IMPRESSION: Fluoroscopy was provided. Dosimetry values are not delineated. Nine fluoroscopic spot images are submitted which are described under separate operative report. Dictated by: Jeff Loco M.D. on 11/09/2023 at 19:11 Approved by: Jeff Loco M.D. on 11/09/2023 at 19:14
[2023-11-09] MEDS: CEFAZOLIN 2 GM/100 ML PREMIX 100 ML IV ×3 (05:45→15:38)
[2023-11-09 07:13] LABS: Add Manual Diff / Slide Review NO; Basophils Absolute Auto 0 /uL (0-100); Basophils Percent Auto 0.3 % (0-2); Eosinophils Absolute Auto 100 /uL (0-450); Eosinophils Percent Auto 1.6 % (2-4); Hemoglobin 12.5 g/dL (12.0-16.0); Lymphocytes Absolute Auto 1200 /uL (1100-4500); Lymphocytes Percent Auto 13.5 % (25-40); Mean Corpuscular HGB Conc 33.7 % (30-36); Mean Corpuscular Hemoglobin 35.2 PG (26-34); Mean Corpuscular Volume 104.6 fL (80-100); Monocytes Absolute Auto 1200 /uL (0-900); Monocytes Percent Auto 13.7 % (3-14); Neutrophils Absolute Auto 6200 /uL (1500-7000); Neutrophils Percent Auto 70.9 % (50-75); Platelet Count 369 X10^3/uL (150-400); Red Blood Cell Count 3.54 X10^6/uL (4.0-5.2); Red Cell Distribution Width 12.7 % (11.6-14.8); White Blood Cell Count 8.7 X10^3/uL (4.5-11.0)
[2023-11-09 07:18] LABS: BUN Creatinine Ratio 12.5 (6-22); Blood Urea Nitrogen 6 mg/dL (7-17); Calcium 9.2 mg/dL (8.4-10.2); Carbon Dioxide 25 mmol/L (22-32); Chloride 101 mmol/L (98-107); Estimated Glomerular Filt Rate > 60 mL/min (>60); Glucose 104 mg/dL (80-110); HEMOLYSIS < 15 (0-50); Potassium 4.1 mmol/L (3.4-5.1); Sodium 134 mmol/L (137-145)
[2023-11-09] MEDS: TRAMADOL 50 MG TABLET PO (08:39)
[2023-11-09] MEDS: CHOLECALCIFEROL (VITAMIN D3) 1,000 UNIT TABLET 2000 UNIT PO (08:39)
[2023-11-09] MEDS: MULTIVITAMIN 1 TABLET 1 TAB PO (08:40)
[2023-11-09] MEDS: ASPIRIN EC 81 MG TABLET PO (08:40)
[2023-11-09] MEDS: ACETAMINOPHEN 325 MG TABLET 650 MG PO ×2 (08:40→23:52)
--- NOTE | 2023-11-09 09:07 | OT.IPNOTE ---
Pt states to have sx today, hold OT eval.
[2023-11-09] MEDS: SUCRALFATE 1 GM/10 ML ORAL SUSP PO (09:33)
[2023-11-09] MEDS: dilTIAZem CD 180 MG CAP PO (09:33)
[2023-11-09] MEDS: LACTATED RINGERS 1,000 ML 42 ML IV ×2 (13:24→17:29)
--- NOTE | 2023-11-09 14:22 | PT-IP ANOTE ---
pt out for surgery this afternoon. will f/u post-op.
--- NOTE | 2023-11-09 14:51 | PM.PREOP ---
Pre-operative Note Interval Note History & Physical reviewed/Exam performed by Physician: Yes Changes to H&P: No
[2023-11-09] MEDS: VANCOMYCIN 1,000 MG VIAL 1000 MG TOP (15:52)
--- NOTE | 2023-11-09 15:58 | SUR.OPER ---
Supine on padded OR bed, head on pillow, arms secured on padded arm boards at <90 degrees abduction, legs uncrossed, safety belt at thigh, tape over blanket over non surgical leg. right leg prepped free.
--- NOTE | 2023-11-09 18:03 | P.PN_ITS ---
Subjective Subjective Interval history: 73 F admitted with an open ankle fracture. No complaints today. Blood and wound cultures are still pending. Exam Vital Signs (past 8 hours): - 11/09/23 12:42 11/09/23 13:17 Temperature 97.8 F 97.2 F L Pulse Rate 87 89 Respiratory Rate 17 18 Blood Pressure 128/81 150/81 H Pulse Oximetry 97 97 Oxygen Delivery Method Room Air Oxygen Delivery Method Room Air Oxygen Flow Rate 0 Narrative Exam Narrative: Gen: No acute distress CV: RRR Pulm: No resp. distress Ext: R leg bandage in place, distal toes with good color and sensation. Objective Labs 11/09/23 06:30 11/09/23 06:30 Labs: Laboratory Results - last 24 hr 11/08/23 11/09/23 21:50 06:30 WBC 8.7 RBC 3.54 L Hgb 12.5 Hct 37.0 MCV 104.6 H MCH 35.2 H MCHC 33.7 RDW 12.7 Plt Count 369 Neut % (Auto) 70.9 Lymph % (Auto) 13.5 L [place] % (Auto) 13.7 Eos % (Auto) 1.6 L Baso % (Auto) 0.3 Neut # (Auto) 6200 Lymph # (Auto) 1200 [place] # (Auto) 1200 H Eos # (Auto) 100 Baso # (Auto) 0 Sodium 130 L 134 L Potassium 4.4 D 4.1 Chloride 102 101 Carbon Dioxide 23 25 BUN 9 6 L Creatinine 0.44 L 0.48 L Estimated GFR > 60 > 60 BUN/Creatinine Ratio 20.5 12.5 Glucose 103 104 Calcium 9.2 9.2 PFSH Surgical History Status post laparoscopy Status post laparotomy Social History household members: spouse Smoking Status: Never smoker alcohol intake: current Assessment & Plan Assessment & Plan narrative: Left ankle fracture, open with gram negative bacteremia. Status post irrigation debridement and open reduction of her ankle. -Continue with antibiotics, continue cefazolin follow up final cultures from wound and blood cultures. -Pain medications as needed -Orthopedic surgery follow-up, plan for OR later today per orthopedics. -IV fluids when NPO -DVT prophylaxis per surgery Alcohol abuse. The patient denies any withdrawal symptoms. Will monitor for now. GERD. continue PPI History of A-fib. Denies taking any diltiazem now. Telemetry. Hypothyroidism. Restart levothyroxine. Code: Full Dispo: Will likely need SNF, pending completion of orthopedic interventions as well as finalization of her operative and blood cultures. Time-Based Coding :: [TOTAL MINUTES] spent with patient and on the chart (including review of chart, obtaining history, exam, reviewing outside data, placing orders, documenting exam and treatment plan, and counseling patient) on [DATE]. Quality VTE Deep Vein Thrombosis/Pulmonary Embolism Present on Admission: No
[2023-11-09] MEDS: OXYCODONE IR 5 MG TABLET PO (18:42)
--- NOTE | 2023-11-09 18:47 | P.OP_ITS ---
Operative Date/Time/Diagnoses Date of procedure: 11/09/23 Time of procedure: 18:47 Pre-op diagnosis: Trimalleolar ankle fracture dislocation Open medial ankle wound Post-op diagnosis: same Procedure & Clinicians Procedure: 1. Trimalleolar right ankle fracture ORIF without fixation of posterior lip CPT code 89327 2. Application external fixation right ankle fracture CPT code--multiplanar external fixation device lower extremity CPT code 48109 +59 -separate procedure 3. Excisional debridement right open fracture wound, complex closure CPT code 04885 4. Repair posterior tibialis tendon CPT code 11363 5. Manual preparation and placement of drug delivery device antibiotic beads CPT code 30707 Procedure performed under modifier 58 and modifier 22. This represents a more extensive procedure than the I and D procedure performed by Dr. Preciado. Modifier 22 is justified for this case for extremely complex open ankle fracture dislocation with contamination. Fracture was extremely unstable and was unable to be maintained reduced in a splint and further required open reduction in order to obtain reduction due to incarcerated medial malleolus and posterior malleolus fracture and incarcerated tibialis posterior tendon. The requirement for open reduction, excisional debridement placement of antibiotic beads complex closure application of external fixator to reinforce reduction and to substitute for medial internal fixation due to the open fracture contamination required proximally twice as long as a standard ankle fracture open reduction procedure. Same procedure as scheduled: Yes Indications: Patient was a 73-year-old female sustained a fracture dislocation to her right ankle on October 28 when she fell at home. She had a reduction at an emergency room and was placed into a splint. She was scheduled for outpatient surgery however presented to the emergency department prior to this after her noticed that she had been weight-bearing in her splint and drinking heavily and there was a foul smell. She was found to have an open wound and janneth ankle dislocation on her presentation to the ER. This was grossly contaminated. She was taken emergently to the operative room by Dr. Preciado where a washout was performed and she was indicated for further definitive surgery. Dr. Preciado noted that the ankle reduction was extremely hard to hold closed. An external fixator was not available that evening so the patient was reduced in plaster and scheduled for repeat washout internal and/or external fixation. I was asked to take over care. She has been on scheduled antibiotics. She has an unstable ankle trimalleolar fracture dislocation concern for incarcerated medial malleolus or other structures medially given the reported difficulty and reduction. We discussed combinations of internal and external fixation. Discussed no hardware would be placed medially due to the open wound that could potentially do internal fixation laterally and supplement with external fixation. The concern would be with external fixation alone may still be a difficult reduction given the prior reports. We discussed risks for need for additional surgery, infection, posttraumatic arthritis, wound healing difficulties, need for wound care, pulmonary embolism blood clot stroke paralysis and . Consent was signed. Surgeon: Vane Potter Click Yes if Unassisted: Yes Anesthesia Type: General Operative Notes Findings: Displaced trimalleolar ankle fracture dislocation with medial wound periwound erythema and fibrinous tissue. No malodor today. No wounds laterally. On trial closed reduction under fluoro there is persistent medial widening and it is noted that the small medial malleolar avulsion fracture is in the medial gutter. Additionally the ankle tends to sublux posteriorly without support. With closed manipulation symmetric mortise was unable to be achieved. And decision was made for open reduction of the lateral malleolus through a separate incision. Once this was completed as well as syndesmotic fixation there was still difficulty closing down the medial clear space and additionally the posterior tibialis tendon rupture was discovered. The patient was felt to benefit from the additional stabilization of an external fixator for her medial fixation as well as to protect against early weight-bearing due to her comorbidities and history of walking on the ankle fracture dislocation resulting in the open wound. The medial wound after debridement was able to be closed with nylon sutures this is a tenuous closure but there was good capillary refill and coloration of the tissues. An incisional wound VAC was placed over this to help with healing and antibiotic beads were placed prior to wound closure. Closure Type: primary Specimen(s): none sent Prosthetic devices, grafts, tissues, transplants, or devices: Arthrex 7 hole 1/3 tubular plate 3.5 locking and nonlocking screws Syndesmotic fixation with 3.5 nonlocking screws x2 Arthrex delta frame external fixator pins and bars Estimated Blood Loss (mL): 30 Blood products transfused: none Tourniquet time (min): 120 Procedure in detail: Patient was seen in the preoperative area the right ankle was marked. Informed consent was confirmed. The patient was back to the operating room by the anesthesia team and positioned on the operative table supine. All bony p rominences well padded. A well-padded thigh tourniquet was applied. SCD was on the contralateral lower extremity. Formal time-out was performed confirming the patient's side and site of surgery administration of appropriate preoperative antibiotic all were in agreement. Provisional closed reduction was attempted under fluoroscopic guidance this was and a successful findings were given above there was persistent medial joint space widening Esmarch was used for exsanguination the tourniquet raised on the thigh to 250 mmHg 1. Medial open wound was ellipsed size sharply using a blade in an excisional debridement of the medial open wound skin subcutaneous tissue fascia and bone were debrided. The medial malleolus avulsion fracture was excised. This had been incarcerated in the medial gutter. Additionally on wound exploration there was noted to be a full rupture of the posterior tibialis tendon this was an attritional type rupture with mop ends suspected to have occurred along with her dislocation due to the worn ends and tendon retraction. Tendon ends were tagged with a PDS for later attempted repair. Wound was thoroughly irrigated with 3 L of saline using cysto tubing. 2. Trimalleolar ankle fracture open reduction internal fixation Gloves were changed and attention was turned to the lateral incision a posterolateral incision just off the fibula was made along the fibular border this was taken down through the skin and subcutaneous tissue. The fibula what was exposed as well as fibula fracture this was debrided using the curette and rongeur. Fracture was reduced and held in place with reduction clamp and then the K-wire. The foot was supinated and inverted to obtain mortise reduction this was further pinned with K-wires across the syndesmosis with care positio ciara the fracture until a good concentric reduction was obtained on AP mortise and lateral imaging. There was a tendency for the ankle to sag posterior and this was carefully accounted for with a bump under the heel. Next a 7 hole 1/3 tubular plate from the Arthrex set was placed against the fibula fracture in antiglide fashion this was fixed just above the fracture with a tricortical syndesmotic screw and fixed distally with locking screw into the distal fibula. The syndesmotic screw placement was to address the disruption caused by the posterior malleolus fracture which will be treated non operatively in place of syndesmotic fixation. Locking screws were placed proximally and a 2nd syndesmotic screw was applied. This held the reduction nicely however there was still valgus tilt medially due to disruption of the deltoid with the medial malleolus avulsion. Due to gross contamination in that area no hardware was desired medially in the wound therefore decision was made for external fixation . 3. Application of multiplanar external fixation. At a level well away from the fracture the tibia shaft was isolated along the medial face a small incision was made down through the skin and blunt dissection taken to the level of the bone a pin from the Arthrex delta frame set was then inserted bicortically under fluoroscopic guidance. Parallel guide was then utilized for the 2nd bicortical tibial shaft pin once these were completed attention was turned to the calcaneus and a small incision was made medially centered at the calcaneal tuberosity and the threaded pin was inserted from medial to lateral through the calcaneus and checked under fluoroscopic guidance for appropriate placement. Once these were completed the clamps were placed and the delta frame was applied. The foot was put into some supination to help close down the medial gutter as well as reduce tension for the planned posterior tibialis tendon repair. This was also applied to help reduce tension on the wound medially. This was held in appropriate position confirmed under fluoroscopic guidance and the clamps were tightened. Once this was completed the final tightening was completed and the bolt cutters were used to remove the sharp edge off the calcaneal pin and a cap was placed. 4. Posterior tibialis tendon repair. Next attention was turned to the medial wound for the posterior tibialis tendon rupture was identified utilizing 0 PDS suture due to the wound in the area the posterior tibialis tendon was repaired this was under moderate tension but the wound edges were approximated. 5. Manual preparation and placement of drug delivery devices. Antibiotic beads were prepared with vancomycin and calcium sulfate these were prepared in the standard fashion for 3 mm beads once they were dry there were placed in the medial and lateral wounds. Additional vancomycin powder was placed in the subcutaneous tissues. 6. Wounds were then closed with 2-0 PDS and 3-0 and 2-0 nylon suture several trauma sutures were used to help approximate the wounds and reduce tension. Wound laterally closed well. Medial wound closed but due to the traumatic nature of the wound and tension as well as potential for drainage, decision was made for incisional wound VAC. The area was prepped with Mastisol Xeroform was placed over the incision and the chay-incision skin border was protected. A small wound VAC was then applied over the incision and an incisional VAC fashion this was placed to -125 and achieved a good seal. Next dressings were applied Xeroform gauze and a Kerlix wrap. Xeroform and Kerlix wrap was used to bolster all the pin sites. An Manuel wrap was applied and an ortho glass splint in neutral dorsiflexion was placed along the posterior ankle and foot in lieu of a cuneiform 1st metatarsal pin once this was completed the patient was awoken from anesthesia and taken to the recovery room in good condition there were no immediate complications from this procedure counts were correct. Complications: none Post-operative Condition: stable Disposition: PACU Plan for aftercare: Nonweightbearing on the right lower extremity 6-8 weeks. External fixator will say 6-8 weeks then we will be removed after that she will be able to start weig ht-bearing in a walking boot or cast. The incisional wound VAC on the medial wound we removed in 2-3 days when she discharges to a group home facility. She will be maintained on scheduled IV antibiotics until cultures finalize. She does have dissolvable antibiotic beads in her wounds and may have some discharge related to this. Her sutures remain in place for weeks and she can follow up in Orthopedic Clinic with Dr. Potter in 4 weeks for a wound check. Postop check in the PACU patient was comfortable and able to wiggle her toes. Brisk capillary refill.
[2023-11-09] MEDS: LACTATED RINGERS 1,000 ML 100 ML IV (19:00)
[2023-11-09] MEDS: DOCUSATE 100 MG CAPSULE PO (20:23)
[2023-11-09] MEDS: SENNOSIDES 8.6 MG TABLET 17.2 MG PO (20:23)
[2023-11-09] MEDS: TRAMADOL 50 MG TABLET 100 MG PO (20:23)
[2023-11-10] MEDS: LACTATED RINGERS 1,000 ML 100 ML IV (00:19)
[2023-11-10 02:00] VITALS: BP 129/84; PULSE 84; RESP 18; TEMP 36.1; O2SAT 99
[2023-11-10] MEDS: CEFAZOLIN 2 GM/100 ML PREMIX 100 ML IV (05:58)
[2023-11-10 06:00] VITALS: BP 128/76; PULSE 86; RESP 18; TEMP 36.4; O2SAT 98
[2023-11-10 06:52] LABS: Add Manual Diff / Slide Review NO; Basophils Absolute Auto 0 /uL (0-100); Basophils Percent Auto 0.1 % (0-2); Eosinophils Absolute Auto 0 /uL (0-450); Hematocrit 36.1 % (36-46); Hemoglobin 12.3 g/dL (12.0-16.0); Lymphocytes Absolute Auto 600 /uL (1100-4500); Lymphocytes Percent Auto 5.9 % (25-40); Mean Corpuscular HGB Conc 34.1 % (30-36); Mean Corpuscular Hemoglobin 35.4 PG (26-34); Mean Corpuscular Volume 103.9 fL (80-100); Monocytes Absolute Auto 200 /uL (0-900); Monocytes Percent Auto 2.4 % (3-14); Neutrophils Absolute Auto 9300 /uL (1500-7000); Neutrophils Percent Auto 91.6 % (50-75); Platelet Count 398 X10^3/uL (150-400); Red Blood Cell Count 3.48 X10^6/uL (4.0-5.2); Red Cell Distribution Width 12.7 % (11.6-14.8); White Blood Cell Count 10.2 X10^3/uL (4.5-11.0)
[2023-11-10 06:55] LABS: Magnesium 1.6 mg/dL (1.6-2.3)
[2023-11-10] MEDS: TRAMADOL 50 MG TABLET PO (06:55)
[2023-11-10] MEDS: LEVOTHYROXINE 50 MCG TABLET PO (06:55)
[2023-11-10 06:56] LABS: Blood Urea Nitrogen 6 mg/dL (7-17); Calcium 9.3 mg/dL (8.4-10.2); Carbon Dioxide 24 mmol/L (22-32); Chloride 99 mmol/L (98-107); Estimated Glomerular Filt Rate > 60 mL/min (>60); Glucose 147 mg/dL (80-110); HEMOLYSIS < 15 (0-50); Potassium 4.5 mmol/L (3.4-5.1); Sodium 130 mmol/L (137-145)
[2023-11-10] MEDS: CEFEPIME 2 GM in SODIUM CHLORIDE 0.9% 100 ML IV (08:11)
[2023-11-10] MEDS: CHOLECALCIFEROL (VITAMIN D3) 1,000 UNIT TABLET 2000 UNIT PO (08:12)
[2023-11-10] MEDS: ACETAMINOPHEN 325 MG TABLET 650 MG PO ×2 (08:12→20:48)
[2023-11-10] MEDS: dilTIAZem CD 180 MG CAP PO (08:12)
[2023-11-10] MEDS: ENOXAPARIN 40 MG/0.4 ML SYRINGE SUBCUT (08:12)
[2023-11-10] MEDS: DOCUSATE 100 MG CAPSULE PO ×2 (08:12→20:48)
[2023-11-10] MEDS: polyethylene glycoL 3350 17 GM POWD.PACK PO (08:13)
[2023-11-10] MEDS: ASCORBIC ACID 500 MG TABLET PO (08:31)
--- NOTE | 2023-11-10 08:55 | P.PN_ITS ---
Subjective Subjective Date Patient Seen: 11/10/23 Time Patient Seen: 08:55 Interval history: Pain is 5/10. Denies fever or chills. No nausea or vomiting. Otherwise without complaints this morning Exam Vital Signs (past 8 hours): - 11/10/23 02:00 11/10/23 06:00 Temperature 97.0 F L 97.6 F Pulse Rate 84 86 Respiratory Rate 18 18 Blood Pressure 129/84 128/76 Pulse Oximetry 99 98 Oxygen Delivery Method Room Air Oxygen Flow Rate 0 Narrative Exam Narrative: 73-year-old female resting comfortably in bed in no apparent distress. Good capillary refill right lower extremity. Able to move all toes. Sensation grossly intact to light touch. External fixator is in place. Wound VAC on and functioning. Const General: cooperative and comfortable Nutritional Appearance: average body habitus Orientation: alert Resp Effort & Inspection: normal respiratory effort and able to speak in complete sentences Objective Labs 11/10/23 06:00 11/10/23 06:00 Labs: Laboratory Results - last 24 hr 11/10/23 06:00 WBC 10.2 RBC 3.48 L Hgb 12.3 Hct 36.1 MCV 103.9 H MCH 35.4 H MCHC 34.1 RDW 12.7 Plt Count 398 Neut % (Auto) 91.6 H D Lymph % (Auto) 5.9 L [place] % (Auto) 2.4 L Eos % (Auto) 0.0 L Baso % (Auto) 0.1 Neut # (Auto) 9300 H Lymph # (Auto) 600 L [place] # (Auto) 200 Eos # (Auto) 0 Baso # (Auto) 0 Sodium 130 L Potassium 4.5 Chloride 99 Carbon Dioxide 24 BUN 6 L Creatinine 0.43 L Estimated GFR > 60 BUN/Creatinine Ratio 14.0 Glucose 147 H Calcium 9.3 Magnesium 1.6 PFSH Surgical History Status post laparoscopy Status post laparotomy Social History household members: spouse Smoking Status: Never smoker alcohol intake: current Assessment & Plan Post-op Postoperative Procedures: Procedures Operation Date: 11/07/23 17:15 Actual Procedure Side Surgeon p right ankle I+D, open reduction right ankle Right Joan Preciado MD Operation Date: 11/09/23 15:15 Actual Procedure Side Surgeon p ankle dressing change, repeat I&D, ORIF WITH Ex Fix Right Vane Potter MD Postoperative day: 1 Postoperative plan narrative: Nonweightbearing right lower extremity for 6-8 weeks External fixator will stay in place for 60 weeks and then will be removed after that she will be able to start weight-bearing in a walking boot or cast. Wound VAC medial wound to be removed in 2-3 days when she is discharged to correction facility Patient will be maintained on scheduled IV antibiotics until cultures finalized Sutures remain in place for weeks and she can follow up in Orthopedic Clinic with Dr. Allan in 4 weeks for wound check Quality VTE Deep Vein Thrombosis/Pulmonary Embolism Present on Admission: No
[2023-11-10] MEDS: MAGNESIUM CHLORIDE 64 MG TABLET 128 MG PO (09:52)
[2023-11-10 10:00] VITALS: BP 135/54; PULSE 97; RESP 18; TEMP 36.4; O2SAT 97
--- NOTE | 2023-11-10 11:30 | PT.IPRE ---
Current Diagnoses Alcohol dependence with withdrawal, unspecified (11/07/23) Other fracture of right lower leg, initial encounter for closed fracture (11/07/23) Other fracture of right lower leg, initial encounter for open fracture type I or II (11/07/23) Abrasion, right ankle, initial encounter (11/07/23) Dislocation of right ankle joint, initial encounter (11/07/23) Surgery Performed Operation Date: 11/07/23 17:15 Actual Procedures p right ankle I+D, open reduction right ankle(Right) - Joan Preciado MD Operation Date: 11/09/23 15:15 Actual Procedures p ankle dressing change, repeat I&D, ORIF WITH Ex Fix(Right) - Vane Potter MD Surgical History (Last Reviewed 11/07/23 @ 17:33 by Joan Preciado MD) Status post laparoscopy Status post laparotomy Physical Therapy Inpatient Evaluation/Re-Eval M1 PT/OT-IP Prior Functional Status Start: 11/08/23 13:00 Freq: NEEDED Status: Active Protocol: Document 11/08/23 10:05 AB (Rec: 11/08/23 13:19 AB [id number]) Medical Review Prior Functional Status Medical History Reviewed Yes Communication able to make needs known Mobility and Gait pt stated that since she had her ankle fx, she has just been in bed or w/c but able to transfer without AD from w/c to bed. stated that she walks with a FWW to the toilet. Social History Household Members spouse Living Arrangements House Number of Floors (Floors) One Floor Number of Stairs To Enter/Railing? no steps to enter Home Environment High Toilet,Walk in Shower Home Equipment Front Wheel Walker,Manual Wheelchair,Shower Seat with Backrest,Hand Held Shower,Grab Bars Near Toilet,Grab Bars In Shower Additional Social History Comment pt stated that she has been doing sponge bathing since ankle fx M2 PT-IP Current Condition Start: 11/08/23 13:00 Freq: NEEDED Status: Active Protocol: Document 11/10/23 11:30 DLM (Rec: 11/10/23 12:57 DLM [id number]) Physical Therapy Current Condition Current Condition Evaluation Date 11/10/23 Treatment Diagnosis right ankle ORIF w/external fixator Onset Date 11/07/23 M3 PT-IP Subjective Start: 11/08/23 13:00 Freq: NEEDED Status: Active Protocol: Document 11/10/23 11:30 DLM (Rec: 11/10/23 12:57 DL [id number]) Subjective Physical Therapy Visit Type Type Re-Evaluation Visit Start Time 10:45 Visit Stop Time 11:30 Notes Initial eval 11/08/23 Re-eval after surgery 11/09/23 Number of [place] Visits 0 Physical Therapy Visit Comments Patient Comments She feels like she will need SNF rehab at discharge. She is fearful of new external fixator. Patient Goals Be able to go home Therapy Pain Assessment Pain When Pain Assessed After Treatment Pain Present Pain Present Pain Reported Location Right Ankle Intensity 3 Scale Used Numeric (0 - 10) Description Aching,Tender,With Movement Pain Behaviors Guarding Pain Management Techniques Elevation,Re-positioning, Timing of Activity with Medications M4 PT-IP Mobility and Gait Start: 11/08/23 13:00 Freq: NEEDED Status: Active Protocol: Document 11/10/23 11:30 DL (Rec: 11/10/23 12:57 [facility] [id number]) PT-Bed Mobility Assessment Rolling Type of Rolling Bilateral Level of Assist Minimal Assistance Supine to Sit Supine to Sit Standby Assistance,Bedrails Sit to Supine Sit to Supine Standby Assistance,Bedrails Scooting Scooting to Edge of Bed Standby Assistance Scooting Up and Down in Bed Standby Assistance PT-Transfer Assessment Sit to and From Stand Sit to and from Stand Moderate Assistance,1 Person Assistance,Use of Upper Extremities Equipment Transfer Assistive Device Gait Belt,Front Wheeled Walker Comments Mobility Comments She was able to stand with the FWW at edge of bed, pt able to keep weight off right LE. Training initiated for pt to scoot left foot on floor to do a stand pivot transfer. She was not able to advance to transfers to the recliner this visit. Her incoordination interferes with her ability to manage her right LE and scoot on left foot at the same time . Pt returned to bed to rest with right LE elevated. She needs help with lines during mobility. Gait Assessment Comments Gait Comments unable at this time, she is not able to hop on left LE to take a functional step with the FWW PT-Balance Assessment Sitting Balance and Reactions Static Sitting Balance Ability Good Dynamic Sitting Balance Ability Good Standing Balance and Reactions Static Standing Balance Ability Fair Dynamic Standing Balance Ability Poor Device Used FWW M5 PT-IP Objective Assessments Start: 11/08/23 13:00 Freq: NEEDED Status: Active Protocol: Document 11/10/23 11:30 DLM (Rec: 11/10/23 12:57 DLM [id number]) Orientation Orientation/Cognition Level of Alertness Alert Orientation Name,Age,Birthday,Month,Date, Year,Day of Week,Place, Situation Language Function Ability No Deficits Noted Safety Awareness Decreased Safety Awareness Comments she needs repetition of new information Coordination Assessment Gross Coordination Gross Coordination Impaired Assessment Coordination Comments mild tremors, mild to moderate decrease in coordination with activity Sensation Assessment Comments Sensation Comments she reports no numbness, splint on right ankle with external fixator M6 PT-IP Treatment Start: 11/08/23 13:00 Freq: NEEDED Status: Active Protocol: Document 11/10/23 11:30 DLM (Rec: 11/10/23 12:57 DL [id number]) Physical Therapy Treatment Exercises Exercises Ankle Pumps,Seated Knee Flexion/Extension Education Education Provided Precautions,Weight Bearing Status,Safety Other Treatments Other Treatment Performed ankle pumps on left LE only, seated hip flexion x 10 reps each LE M7 PT-IP Assessment and Plan Start: 11/08/23 13:00 Freq: NEEDED Status: Active Protocol: Document 11/10/23 11:30 DLM (Rec: 11/10/23 12:57 DL [id number]) PT Summary Assessment and Plan Potential Rehabilitation Potential Good Status of Condition at Evaluation Evolving Summary Impairments Pain,ROM,Strength,Balance, Coordination,Bed Mobility, Transfers,Gait,Activity Tolerance Progress Towards Goals Slow Progress due to Medical Issues Assessment Summary Lynn is alert and resting in bed this visit. She reports no dizziness nor nausea today. She was able to sit edge of bed with good tolerance. She advanced to standing with the FWW and with effort was able to keep right foot non-weight bearing. She is not able to progress to safe standing transfers with the FWW this visit but showed good effort with training. Pt is agreeable to go to SNF rehab at discharge at this time . Anticipate she will progress well but slowly in Physical Therapy. Goals Bed Mobility Goal Independent Transfer Goal Independent,Front Wheeled Walker Gait Goal Independent,Front Wheel Walker Gait Distance 10 Other Goals NWB right LE for transfers and gait Scoot/slide board transfer bed -commode with stand by assist. Days to Meet Goals 10 Frequency of Treatment Frequency Of Treatment Twice a Day Treatment Plan Physical Therapy Treatment Plan Bed Mobility Training,Transfer Training,Gait Training, Therapeutic Exercise,Balance Retraining,Post Op Education, Discharge Planning,Hot or Cold Pack,Neuromuscular Re-ed, Coordination Retraining,Manual Therapy Other Recommendations and Next Treatment slide board and sitting Focus scooting transfers drop arm commode is in her room for training Precautions Other Precautions wound vac right ankle Weight Bearing Status Weight Bearing Status Non-Weight Bearing Allowed Weight Bearing Amount (enter % strict, right ankle with or #) (%) external fixator Recommendations To Nursing Amount of Assist Needed Mechanical Lift Discharge Recommendations PT Discharge Recommendations SNF Rehab Transportation Needs at Discharge Wheelchair/Cabulance
--- NOTE | 2023-11-10 11:50 | OT.IP.EVAL ---
Current Diagnoses Alcohol dependence with withdrawal, unspecified (11/07/23) Other fracture of right lower leg, initial encounter for closed fracture (11/07/23) Other fracture of right lower leg, initial encounter for open fracture type I or II (11/07/23) Abrasion, right ankle, initial encounter (11/07/23) Dislocation of right ankle joint, initial encounter (11/07/23) Surgery Performed Operation Date: 11/07/23 17:15 Actual Procedures p right ankle I+D, open reduction right ankle(Right) - Joan Preciado MD Operation Date: 11/09/23 15:15 Actual Procedures p ankle dressing change, repeat I&D, ORIF WITH Ex Fix(Right) - Vane Potter MD Surgical History (Last Reviewed 11/07/23 @ 17:33 by Joan Preciado MD) Status post laparoscopy Status post laparotomy Occupational Therapy Inpatient Evaluation/Re-Eval M1 PT/OT-IP Prior Functional Status Start: 11/08/23 13:00 Freq: NEEDED Status: Active Protocol: Document 11/10/23 13:52 CGR (Rec: 11/10/23 14:07 CGR [id number]) Medical Review Prior Functional Status Medical History Reviewed Yes Communication able to make needs known Mobility and Gait pt stated that since she had her ankle fx, she has just been in bed or w/c but able to transfer without AD from w/c to bed. stated that she walks with a FWW to the toilet. Activities of Daily Living and IADL's Pt states that she was IND in all ADLs and IADLs prior to first ankle fx. Social History Household Members spouse Living Arrangements House Number of Floors (Floors) One Floor Number of Stairs To Enter/Railing? no steps to enter Home Environment High Toilet,Walk in Shower Home Equipment Front Wheel Walker,Manual Wheelchair,Shower Seat with Backrest,Hand Held Shower,Grab Bars Near Toilet,Grab Bars In Shower Additional Social History Comment pt stated that she has been doing sponge bathing since ankle fx M2 OT-IP Current Condition Start: 11/10/23 13:51 Freq: Status: Active Protocol: Document 11/10/23 13:52 CGR (Rec: 11/10/23 14:07 CGR [id number]) Occupational Therapy Current Condition Current Condition Evaluation Date 11/10/23 Treatment Diagnosis recent R ankle fx, then found to have open new ankle fx and underwent sx. Diagnosis Onset Date 11/07/23 Post Operative Precautions Other Precautions Pt with external fixation Weight Bearing Status Weight Bearing Status Non-Weight Bearing M3 OT- IP Subjective and Pain Start: 11/10/23 13:51 Freq: Status: Active Protocol: Document 11/10/23 13:52 CGR (Rec: 11/10/23 14:07 CGR [id number]) OT- Subjective Occupational Therapy Visit Type Type Initial Evaluation Visit Start Time 11:29 Visit Stop Time 11:50 Notes Pt just completed P.T. session . M4 OT- IP ADL's Start: 11/10/23 13:51 Freq: Status: Active Protocol: Document 11/10/23 13:52 CGR (Rec: 11/10/23 14:07 CGR [id number]) OT ADS-Ypum-Eupmzmi Comments OT Self-Feeding Comments not meal time OT ADL-Grooming Comments OT Grooming Comments pt declined, states she performed earlier this AM OT ADL-Oral Care Comments Oral Care Comments pt declined, states she performed earlier this AM OT ADL-Dressing Comments OT Dressing Comments not peformed, pt declined OT ADL-Toileting Comments OT Toileting Comments not performed OT ADL-Bathing Comments OT Bathing Comments not performed M5 OT- IP IADL's Start: 11/10/23 13:51 Freq: Status: Active Protocol: Document 11/10/23 13:52 CGR (Rec: 11/10/23 14:07 CGR [id number]) OT-Instrumental Activities of Daily Living Deficits IADL Deficits Identified No Deficits Home Safety Awareness Awareness of Need for Assistance at Home Good Awareness Ability to Problem Solve Emergency Able to Problem Solve Situations Medication Management Medication Management No Deficits Identified Money Management Money Management No Deficits Identified Meal Preparation Meal Preparation No Deficits Identified Cancer Program Consultant Cancer Program Consultant No Deficits Identified Driving Driving Comments Pt will not be able to drive given R ankle fx M6 OT- IP Functional Cognition Start: 11/10/23 13:51 Freq: Status: Active Protocol: Document 11/10/23 13:52 CGR (Rec: 11/10/23 14:07 CGR [id number]) Cognitive Factors Limiting Selfcare Function Cognitive Ability Level of Alertness Alert Patient Orientation Name,Age,Birthday,Month,Date, Year,Day of Week,Place, Situation Attention Span Ability Capable of Focused Attention, Capable of Sustained Attention Ability to Follow Commands Able to Follow Multi-Step Commands OT- Vision and Hearing OT- Hearing Assessment OT- Hearing Assessment WFL OT- Vision Assessment Vision History Cataracts Visual Acuity Glasses For Reading Visual Attentiveness WFL Occular Pursuits WFL Visual Convergence WFL Vision Assessment Comments Pt states she had cateract sx M7 OT- IP Mobility and Balance Start: 11/10/23 13:51 Freq: Status: Active Protocol: Document 11/10/23 13:52 CGR (Rec: 11/10/23 14:07 CGR [id number]) OT- Bed Mobility Assessment Supine to Sit Supine to Sit Assist Standby Assistance Sit to Supine Sit to Supine Assist Standby Assistance Scooting Scooting to Edge of Bed Standby Assistance OT-Transfer Assessment Comments Mobility Comments Pt is able to move around in bed well without assist and get to and from the EOB. Pt declined further activity as she had just performed with P. T. OT- Gait Assessment Comments Gait Ability Comments not performed OT- Balance Assessment Sitting Balance and Reactions Static Sitting Balance Ability Good Dynamic Sitting Balance Ability Good M8 OT- IP Objective Assessments Start: 11/10/23 13:51 Freq: Status: Active Protocol: Document 11/10/23 13:52 CGR (Rec: 11/10/23 14:07 CGR [id number]) OT Gross Range of Motion Upper Extremity Range of Motion Assessment Within Functional Limits OT Strength Upper Extremity Strength Assessment Within Functional Limits Comments Strength Comments grossly 4+/5 OT- Coordination Assessment Upper Extremity Finger to Nose Test Within Functional Limits Finger Tapping Test Within Functional Limits OT-Muscle Tone Assessment Muscle Tone WNL Yes OT Sensation Assessment Edema Edema Absent M9 OT- IP Assessment and Plan Start: 11/10/23 13:51 Freq: Status: Active Protocol: Document 11/10/23 13:52 CGR (Rec: 11/10/23 14:07 CGR [id number]) OT Summary Assessment and Plan Potential Rehabilitation Potential Good Analytic Complexity at Evaluation Moderate Summary OT Impairments Pain,Balance,Functional Mobility,Dressing,Toileting, Bathing,Toilet Transfers, Shower Transfers,Activity Tolerance Progress Towards Goals Progressing Toward Goals Assessment Summary Pt presents as a moderate complexity evaluation s/p admit for open R ankle fx. Pt now with ORIF and external fixation of the ankle. Pt is NWB and unable to ambulate with use of a walker given her NWB status. Pt participated in EOB activity only on this date but has good bed mobility and sitting balance. Pt will continue to benefit from therapy services and is now open to SNF. Pt states that she has been to [facility] and would like to stay local. Will continue to follow. Goals Grooming Goal Independent Dressing Goal Independent Toileting Goal Independent Bathing Goal Independent Toilet Transfer Goal Independent Shower Transfer Goal Independent Days to Meet Goals 30 Frequency of Treatment Frequency Of Treatment Once a Day Treatment Plan OT Treatment Plan ADL Training,Functional Mobility,Therapeutic Exercises ,Patient/Family Education, Discharge Planning Other Treatment Recommendations and Next ADLs seated, sliding board to Treatment Focus BSC Discharge Recommendations OT Discharge Recommendations SNF Rehab Transportation Needs at Discharge Wheelchair/Cabulance
--- NOTE | 2023-11-10 14:14 | CM.DPC ---
DCP Cont. Reviewed EMR and team rounds for status updates. [facility] can accept either Tue or Tue, will plan to call on Tuesday am to confirm date/time of transport.
[2023-11-10 15:03] VITALS: BP 118/62; PULSE 94; RESP 19; TEMP 36; O2SAT 97
--- NOTE | 2023-11-10 15:03 | P.PN_ITS ---
Subjective Subjective Interval history: 73 F admitted with an open ankle fracture. No complaints today. Blood and wound cultures have enterobacter. Discussed with ID recommended ertapenem 1g q24 for 6 weeks presuming an osteomyelitis. Exam Vital Signs (past 8 hours): - 11/10/23 10:00 Temperature 97.6 F Pulse Rate 97 H Respiratory Rate 18 Blood Pressure 135/54 L Pulse Oximetry 97 Oxygen Delivery Method Room Air Oxygen Flow Rate 0 Narrative Exam Narrative: Gen: No acute distress CV: RRR Pulm: No resp. distress Ext: R leg bandage in place, distal toes with good color and sensation. Objective Labs 11/10/23 06:00 11/10/23 06:00 Labs: Laboratory Results - last 24 hr 11/10/23 06:00 WBC 10.2 RBC 3.48 L Hgb 12.3 Hct 36.1 MCV 103.9 H MCH 35.4 H MCHC 34.1 RDW 12.7 Plt Count 398 Neut % (Auto) 91.6 H D Lymph % (Auto) 5.9 L [place] % (Auto) 2.4 L Eos % (Auto) 0.0 L Baso % (Auto) 0.1 Neut # (Auto) 9300 H Lymph # (Auto) 600 L [place] # (Auto) 200 Eos # (Auto) 0 Baso # (Auto) 0 Sodium 130 L Potassium 4.5 Chloride 99 Carbon Dioxide 24 BUN 6 L Creatinine 0.43 L Estimated GFR > 60 BUN/Creatinine Ratio 14.0 Glucose 147 H Calcium 9.3 Magnesium 1.6 PFSH Surgical History Status post laparoscopy Status post laparotomy Social History household members: spouse Smoking Status: Never smoker alcohol intake: current Assessment & Plan Assessment & Plan narrative: Left ankle fracture, open with enterobacter cloacae bacteremia, osteomyelitis. Status post irrigation debridement and open reduction of her ankle. -Discussed with infectious disease provider today, presume osteomyelitis based on presentation. Recommended 6 weeks of ertapenem 1g q24 for now based on admission qtc of 499, will need to see in outpatient ID clinic. Referral faxed today. -Pain medications as needed -Orthopedic surgery consultation appreciated. Now with external fixator for 6-8 weeks and wound vac to continue until discharge. -DVT prophylaxis per surgery -PICC line ordered today. Alcohol abuse. The patient denies any withdrawal symptoms. Will monitor for now. GERD / history of GI bleeding. continue PPI Chronic A-fib with RVR - restarted home diltiazem, rate is fast with therapy but improved following. initially reported she was not taking dilt. Not on AC due to GI bleeding with chronic PPI and sucralfate use. Hypothyroidism. Restart levothyroxine. Code: Full Dispo: SNF, will need PICC Additional history obtained via discussions with the orthopedic PA, casework specialist, therapist, infectious disease provider, and pharmacist. These discussions contributed to the creation of the above assessment and plan. I have reviewed patient's presenting documentation, labs, and imaging personally. Time-Based Coding :: [TOTAL MINUTES] spent with patient and on the chart (including review of chart, obtaining history, exam, reviewing outside data, placing orders, documenting exam and treatment plan, and counseling patient) on [DATE]. Quality VTE Deep Vein Thrombosis/Pulmonary Embolism Present on Admission: No
--- NOTE | 2023-11-10 15:34 | PT-IP ANOTE ---
Pt refused to work with PT this afternoon. PT will check on pt tomorrow.
[2023-11-10] MEDS: ERTAPENEM 1 GM in SODIUM CHLORIDE 0.9% 100 ML IV (15:40)
--- NOTE | 2023-11-10 17:11 | DI.RAD.S_ITS ---
PROCEDURE: XR CHEST FOR PICC 1V INDICATIONS: PICC placement COMPARISON: None. FINDINGS: PICC was placed by the intravenous therapy team from the right side. Fluoroscopic spot film demonstrates the tip of PICC projecting to the area of distal SVC. IMPRESSION: Tip of PICC projects to the area of distal SVC. Dictated by: Erin Ko M.D. on 11/10/2023 at 18:15 Approved by: Erin Ko M.D. on 11/10/2023 at 18:15
[2023-11-10 19:00] VITALS: BP 118/71; PULSE 87; RESP 17; TEMP 36.7; O2SAT 97
[2023-11-10] MEDS: SENNOSIDES 8.6 MG TABLET 17.2 MG PO (20:48)
[2023-11-10 23:00] VITALS: BP 121/67; PULSE 84; RESP 18; TEMP 36.6; O2SAT 99
--- NOTE | 2023-11-11 00:41 | EKG_ITS ---
[place] [id number] [place] [id number] Test Date: 2023-11-11 Pat Name: Lynn Lenz Department: [facility] Room: 209 Gender: Female Hospital Admissions Clerk: ÁNGEL : 1950 Requested By: Order Number: [id number] Reading MD: Mo Ceballos MD Measurements Intervals [place] Rate: 93 P: [place]: QRS: 158 QRSD: 142 T: 38 QT: 394 QTc: 489 Interpretive Statements Atrial fibrillation with premature ventricular or aberrantly conducted complexes Right bundle branch block T wave abnormality, consider lateral ischemia NO SIGNIFICANT CHANGE FROM PRIOR TRACING Electronically Signed On 11-11-2023 4:53:14 PDT by Mo Ceballos MD
[2023-11-11] MEDS: LORazepam 2 MG/ML INJ IV (01:18)
[2023-11-11 01:40] VITALS: BP 118/66; PULSE 68; RESP 18
[2023-11-11 03:00] VITALS: BP 144/94; PULSE 69; RESP 18; TEMP 36.7; O2SAT 97
--- NOTE | 2023-11-11 06:22 | P.PN_ITS ---
Subjective Subjective Date Patient Seen: 11/11/23 Time Patient Seen: 10:00 Interval history: Patient was a 73-year-old female sustained a fracture dislocation to her right ankle on October 28 when she fell at home. She had a reduction at an emergency room and was placed into a splint. She was scheduled for outpatient surgery however presented to the emergency department prior to this after her noticed that she had been weight-bearing in her splint and drinking heavily and there was a foul smell. She was found to have an open wound and janneth ankle dislocation on her presentation to the ER. This was grossly contaminated. She was taken emergently to the operative room by Dr. Preciado on 11/06 where a washout was performed and she was indicated for further definitive surgery. Dr. Preciado noted that the ankle reduction was extremely hard to hold closed. An external fixator was not available that evening so the patient was reduced in plaster and scheduled for repeat washout and external fixation. This was performed by Dr Potter on 11/08. On visit today, she is sitting up in bed. Her pain is well-controlled. She is extremely anxious about trying to walk without letting her right foot touch the ground. Exam Vital Signs (past 8 hours): - 11/10/23 23:00 11/11/23 01:40 11/11/23 03:00 Temperature 97.8 F 98.1 F Pulse Rate 84 68 69 Respiratory Rate 18 18 18 Blood Pressure 121/67 118/66 144/94 H Pulse Oximetry 99 97 Oxygen Delivery Method Room Air Oxygen Flow Rate 0 Narrative Exam Narrative: Pt able to wiggle toes, no problem moving at hip or knee, wound VAC functioning. Sensation to light touch intact proximal and distal to ex fix. Objective Labs 11/11/23 06:45 11/11/23 06:45 Labs: Laboratory Results - last 24 hr 11/10/23 06:00 WBC 10.2 RBC 3.48 L Hgb 12.3 Hct 36.1 MCV 103.9 H MCH 35.4 H MCHC 34.1 RDW 12.7 Plt Count 398 Neut % (Auto) 91.6 H D Lymph % (Auto) 5.9 L [place] % (Auto) 2.4 L Eos % (Auto) 0.0 L Baso % (Auto) 0.1 Neut # (Auto) 9300 H Lymph # (Auto) 600 L [place] # (Auto) 200 Eos # (Auto) 0 Baso # (Auto) 0 Sodium 130 L Potassium 4.5 Chloride 99 Carbon Dioxide 24 BUN 6 L Creatinine 0.43 L Estimated GFR > 60 BUN/Creatinine Ratio 14.0 Glucose 147 H Calcium 9.3 Magnesium 1.6 PFSH Surgical History Status post laparoscopy Status post laparotomy Social History household members: spouse Smoking Status: Never smoker alcohol intake: current Assessment & Plan Post-op Assessment and plan (1) Open fracture dislocation of right ankle: Assessment and Plan narrative: 1) Nonweightbearing on the right lower extremity 6-8 weeks. External fixator will say 6-8 weeks then we will be removed after that she will be able to start weight-bearing in a walking boot or cast. She will need a wheelchair. 2) The incisional wound VAC on the medial wound we removed in 2-3 days when she discharges to a snf facility. 3) She will be maintained on scheduled IV antibiotics until cultures finalize. She does have dissolvable antibiotic beads in her wounds and may have some discharge related to this. 4) Her sutures remain in place for weeks and she can follow up in Orthopedic Clinic with Dr. Potter in 4 weeks for a wound check. 5) She is currently receiving ASA 81mg daily as well as enoxaparin 40mEq daily for VTE prophylaxis. VTE prophylaxis should be continued for at least 6 weeks postop. 6) Wound cultures positive for enterobacter, currently receiving ertapenem per ID rxs. 7) Disposition, pain control, VTE prophylaxis, abx per hospitalist service. 8) Ortho will continue to follow while pt is inpt and d/c wound vac prior to discharge to SNF. Postoperative Procedures: Procedures Operation Date: 11/07/23 17:15 Actual Procedure Side Surgeon p right ankle I+D, open reduction right ankle Right Joan Preciado MD Operation Date: 11/09/23 15:15 Actual Procedure Side Surgeon p ankle dressing change, repeat I&D, ORIF WITH Ex Fix Right Vane Potter MD Postoperative day: 2 Quality VTE Deep Vein Thrombosis/Pulmonary Embolism Present on Admission: No
[2023-11-11] MEDS: LEVOTHYROXINE 50 MCG TABLET PO (06:24)
--- NOTE | 2023-11-11 07:26 | PC.NURSE ---
~2300 this shift a run of vtach was recorded on telemetry (see printout in chart) EKG ordered with abnormal result (also see chart copy) SLAG MIXER Joseph Hollis noted varying rhythms, afib (which she has been in since her surgery 4 days ago) into, wandering atrial pacemaker, to junctional escape. Suggests a possible cardiology consult, here or outpatient. Provider made aware, and orders for anticoagulation given (see mar) Pt CIWA also increased around this time (from 0 on dayshi, to 2 at 1999, to 8 at 0100) 1 mg ativan given per protocol. Pt was resting quietly upon reassessment.
[2023-11-11] MEDS: ACETAMINOPHEN 325 MG TABLET 650 MG PO (07:41)
[2023-11-11] MEDS: TRAMADOL 50 MG TABLET PO (07:41)
[2023-11-11 07:47] LABS: Add Manual Diff / Slide Review NO; Basophils Absolute Auto 0 /uL (0-100); Basophils Percent Auto 0.1 % (0-2); Eosinophils Absolute Auto 0 /uL (0-450); Eosinophils Percent Auto 0.2 % (2-4); Hematocrit 35.9 % (36-46); Hemoglobin 12.4 g/dL (12.0-16.0); Lymphocytes Absolute Auto 1400 /uL (1100-4500); Lymphocytes Percent Auto 11.6 % (25-40); Mean Corpuscular HGB Conc 34.6 % (30-36); Mean Corpuscular Volume 104.1 fL (80-100); Monocytes Absolute Auto 1200 /uL (0-900); Monocytes Percent Auto 9.8 % (3-14); Neutrophils Absolute Auto 9500 /uL (1500-7000); Neutrophils Percent Auto 78.3 % (50-75); Platelet Count 448 X10^3/uL (150-400); Red Blood Cell Count 3.45 X10^6/uL (4.0-5.2); Red Cell Distribution Width 12.6 % (11.6-14.8); White Blood Cell Count 12.1 X10^3/uL (4.5-11.0)
--- NOTE | 2023-11-11 07:56 | PM.PN.1 ---
Subjective Subjective Interval history: 73 F admitted with an open ankle fracture. No complaints today. Blood and wound cultures have enterobacter. Discussed with ID recommended ertapenem 1g q24 for 6 weeks presuming an osteomyelitis. S: Her pain is well-controlled. She denies any dyspnea. No hallucinations. She did score 8 on a CIWA scale last night. She was given Librium this morning in his doing well. Exam Vital Signs (past 8 hours): - 11/11/23 01:40 11/11/23 03:00 Temperature 98.1 F Pulse Rate 68 69 Respiratory Rate 18 18 Blood Pressure 118/66 144/94 H Pulse Oximetry 97 Oxygen Delivery Method Room Air Oxygen Flow Rate 0 Narrative Exam Narrative: NAD, alert and oriented. Fluent speech. Lungs are clear, normal rate and effort. Heart is regular, no murmur gallop or rub. Abdomen is soft, non distended. Extremities are free of edema. Right ankle has an external fixator and a wound VAC in place. Objective Labs 11/11/23 06:45 11/11/23 06:45 Labs: Laboratory Results - last 24 hr 11/11/23 06:45 WBC 12.1 H RBC 3.45 L Hgb 12.4 Hct 35.9 L MCV 104.1 H MCH 36.0 H MCHC 34.6 RDW 12.6 Plt Count 448 H Neut % (Auto) 78.3 H Lymph % (Auto) 11.6 L [place] % (Auto) 9.8 Eos % (Auto) 0.2 L Baso % (Auto) 0.1 Neut # (Auto) 9500 H Lymph # (Auto) 1400 [place] # (Auto) 1200 H Eos # (Auto) 0 Baso # (Auto) 0 PFSH Surgical History Status post laparoscopy Status post laparotomy Social History household members: spouse Smoking Status: Never smoker alcohol intake: current Assessment & Plan Assessment & Plan narrative: 1. Left ankle fracture, open with enterobacter osteomyelitis. Present on admission and active. -Status post irrigation debridement and open reduction of her ankle. 2. Enterobacter cloacae osteomyelitis. Present on admission and active. 3. Enterobacter cloacae bacteremia. Present on admission and active. 4. Alcohol use disorder. Present on admission and active. -The patient denies any withdrawal symptoms. Will monitor for now. GERD / history of GI bleeding. continue PPI 5. Chronic A-fib with RVR. Present on admission and active. - restarted home diltiazem, rate is fast with therapy but improved following. initially reported she was not taking diltiazem. Not on AC due to GI bleeding with chronic PPI and sucralfate use. 6. Hypothyroidism. Present on admission and active. -Restart levothyroxine. PLAN: -Discussed with infectious disease provider today, presume osteomyelitis based on presentation. Recommended 6 weeks of ertapenem 1g q24 for now based on admission qtc of 499, will need to see in outpatient ID clinic. Referral faxed today. Appt is 11/22 at 14:00. -Pain medications as needed -Orthopedic surgery consultation appreciated. Now with external fixator for 6-8 weeks and wound vac to continue until discharge. -DVT prophylaxis per surgery [facility] Sat 10/5AM Code: Full Dispo: SNF, will need PICC Time-Based Coding :: [TOTAL MINUTES] spent with patient and on the chart (including review of chart, obtaining history, exam, reviewing outside data, placing orders, documenting exam and treatment plan, and counseling patient) on [DATE]. Quality VTE Deep Vein Thrombosis/Pulmonary Embolism Present on Admission: No
[2023-11-11 07:57] LABS: Alanine Aminotransferase 17 IU/L (<35); Albumin 3.8 g/dL (3.5-5.0); Albumin Globulin Ratio 1.2 (1.0-2.8); Alkaline Phosphatase 79 U/L (38-126); Aspartate Aminotransferase 30 IU/L (14-36); BUN Creatinine Ratio 20.8 (6-22); Bilirubin Total 0.7 mg/dL (0.2-1.3); Blood Urea Nitrogen 11 mg/dL (7-17); Calcium 9.9 mg/dL (8.4-10.2); Carbon Dioxide 27 mmol/L (22-32); Chloride 99 mmol/L (98-107); Estimated Glomerular Filt Rate > 60 mL/min (>60); Globulin 3.3 g/dL (1.7-4.1); Glucose 99 mg/dL (80-110); HEMOLYSIS < 15 (0-50); Potassium 4.1 mmol/L (3.4-5.1); Sodium 135 mmol/L (137-145); Total Protein 7.1 g/dL (6.3-8.2)
[2023-11-11 08:00] LABS: Creatine Kinase 39 U/L (30-135)
[2023-11-11 08:06] LABS: Erythrocyte Sedimentation Rate 53 MM/HR (0-20)
[2023-11-11 08:11] LABS: C-Reactive Protein Quant 11.7 mg/dL (<1.0)
[2023-11-11 09:18] VITALS: BP 156/62; PULSE 88; RESP 18; TEMP 36.1; O2SAT 99
[2023-11-11] MEDS: ENOXAPARIN 40 MG/0.4 ML SYRINGE SUBCUT (09:30)
[2023-11-11] MEDS: polyethylene glycoL 3350 17 GM POWD.PACK PO (09:30)
[2023-11-11] MEDS: dilTIAZem CD 180 MG CAP PO (09:31)
[2023-11-11] MEDS: ASCORBIC ACID 500 MG TABLET PO (09:31)
[2023-11-11] MEDS: THIAMINE 100 MG TABLET PO (09:31)
[2023-11-11] MEDS: MAGNESIUM SULFATE 2 GM/50 ML PIGGYBACK IV (09:31)
[2023-11-11] MEDS: CHOLECALCIFEROL (VITAMIN D3) 1,000 UNIT TABLET 2000 UNIT PO (09:31)
[2023-11-11] MEDS: chlordiazePOXIDE 10 MG CAPSULE PO ×3 (09:33→20:45)
[2023-11-11] MEDS: FOLIC ACID 1 MG TABLET PO (09:33)
[2023-11-11] MEDS: DOCUSATE 100 MG CAPSULE PO ×2 (09:33→20:45)
[2023-11-11] MEDS: ASPIRIN EC 81 MG TABLET PO (09:33)
[2023-11-11] MEDS: MULTIVITAMIN 1 TABLET 1 TAB PO (09:33)
--- NOTE | 2023-11-11 10:10 | PT.IPTN ---
Current Diagnoses Alcohol dependence with withdrawal, unspecified (11/07/23) Bacteremia (11/07/23) Other fracture of right lower leg, initial encounter for closed fracture (11/07/23) Other fracture of right lower leg, initial encounter for open fracture type I or II (11/07/23) Abrasion, right ankle, initial encounter (11/07/23) Dislocation of right ankle joint, initial encounter (11/07/23) Surgery Performed Operation Date: 11/07/23 17:15 Actual Procedures p right ankle I+D, open reduction right ankle(Right) - Joan Preciado MD Operation Date: 11/09/23 15:15 Actual Procedures p ankle dressing change, repeat I&D, ORIF WITH Ex Fix(Right) - Vane Potter MD Physical Therapy Treatment Note M2 PT-IP Current Condition Start: 11/08/23 13:00 Freq: NEEDED Status: Active Protocol: Document 11/10/23 11:30 DLM (Rec: 11/10/23 12:57 DLM [id number]) Physical Therapy Current Condition Current Condition Evaluation Date 11/10/23 Treatment Diagnosis right ankle ORIF w/external fixator Onset Date 11/07/23 M3 PT-IP Subjective Start: 11/08/23 13:00 Freq: NEEDED Status: Active Protocol: Document 11/11/23 10:10 AB (Rec: 11/11/23 13:01 AB [id number]) Subjective Physical Therapy Visit Type Type Treatment Note Visit Start Time 10:10 Visit Stop Time 10:45 Number of DOCUMENT MANAGER Visits 0 Physical Therapy Visit Comments Patient Comments agreeable to do PT Therapy Pain Assessment Pain When Pain Assessed At Rest Pain Present Pain Present Pain Reported Location Right Ankle Scale Used pain scale not stated Pain Management Techniques Distraction,Elevation, Modification of Treatment,Re- positioning,Timing of Activity with Medications M4 PT-IP Mobility and Gait Start: 11/08/23 13:00 Freq: NEEDED Status: Active Protocol: Document 11/11/23 10:10 AB (Rec: 11/11/23 13:01 AB [id number]) PT-Bed Mobility Assessment Supine to Sit Supine to Sit Standby Assistance PT-Transfer Assessment Sit to and From Stand Sit to and from Stand Maximum Assistance,1 Person Assistance,2 Person Assistance ,Use of Upper Extremities Equipment Transfer Assistive Device Gait Belt,Front Wheeled Walker Orthotic/Prosthetic Devices or Brace: No Transfers Transfer Destination Chair Transfer Technique Stand Pivot Transfer Ability Level of Assist Maximum Assistance,1 Person Assistance,2 Person Assistance ,Use of Upper Extremities Comments Mobility Comments pt supine in bed and agreeable to do PT. completed supine to sit SBA. able to sit on EOB SBA. pt is impulsive needing repeated cues to wait before moving. pt completed sit to stand from EOB max A x 1-2 and max cues. max A to maintain NWB on RLE. pt completed pivot transfer to chair using FWW max A x 1-2 and max cues. needed assist for weight shifting to pivot to chair. positioned pt on the chair. pt completed LE exercises: glute sets, quads sets and L ankle DF/PF. call light and table placed within reach. Gait Assessment Comments Gait Comments unable at this time M5 PT-IP Objective Assessments Start: 11/08/23 13:00 Freq: NEEDED Status: Active Protocol: Document 11/10/23 11:30 DLM (Rec: 11/10/23 12:57 DLM [id number]) Orientation Orientation/Cognition Level of Alertness Alert Orientation Name,Age,Birthday,Month,Date, Year,Day of Week,Place, Situation Language Function Ability No Deficits Noted Safety Awareness Decreased Safety Awareness Comments she needs repetition of new information Coordination Assessment Gross Coordination Gross Coordination Impaired Assessment Coordination Comments mild tremors, mild to moderate decrease in coordination with activity Sensation Assessment Comments Sensation Comments she reports no numbness, splint on right ankle with external fixator M6 PT-IP Treatment Start: 11/08/23 13:00 Freq: NEEDED Status: Active Protocol: Document 11/11/23 10:10 AB (Rec: 11/11/23 13:01 [id number]) Physical Therapy Treatment Exercises Exercises Ankle Pumps,Gluteal Sets,Quad Sets Education Education Provided Precautions,Weight Bearing Status,Safety M7 PT-IP Assessment and Plan Start: 11/08/23 13:00 Freq: NEEDED Status: Active Protocol: Document 11/11/23 10:10 AB (Rec: 11/11/23 13:01 [id number]) PT Summary Assessment and Plan Potential Rehabilitation Potential Fair Summary Impairments Pain,ROM,Strength,Balance, Coordination,Sensation,Tone, Cognition,Bed Mobility, Transfers,Gait,Activity Tolerance Progress Towards Goals Slow Progress due to Medical Issues,Slow Progress due to Activity Tolerance,Slow Progress - Other Assessment Summary pt requiring max A 1-2 with transfers using FWW and needing max A to maintain NWB on RLE. pt is impulsive and has decrease safety awarenss. pt will need SNF rehab to improve mobility. will continue to assess progress. Goals Bed Mobility Goal Independent Transfer Goal Independent,Front Wheeled Walker Gait Goal Independent,Front Wheel Walker Gait Distance 10 Other Goals NWB right LE for transfers and gait Scoot/slide board transfer bed -commode with stand by assist. Days to Meet Goals 10 Frequency of Treatment Other frequency 1-2x /day Treatment Plan Physical Therapy Treatment Plan Bed Mobility Training,Transfer Training,Gait Training, Therapeutic Exercise,Balance Retraining,Post Op Education, Discharge Planning,Hot or Cold Pack,Neuromuscular Re-ed, Coordination Retraining,Manual Therapy Other Recommendations and Next Treatment slide board and sitting Focus scooting transfers drop arm commode is in her room for training Precautions Other Precautions wound vac right ankle Weight Bearing Status Weight Bearing Status Non-Weight Bearing Allowed Weight Bearing Amount (enter % NWB RLE : strict, right ankle or #) (%) with external fixator Recommendations To Nursing Amount of Assist Needed Mechanical Lift Discharge Recommendations PT Discharge Recommendations SNF Rehab Transportation Needs at Discharge Wheelchair/Cabulance
--- NOTE | 2023-11-11 12:46 | CM.DPC ---
DCP Continued: Reviewed EMR and team rounds for pt?s medical status. Per rounds, pt has a prescription for 6 week IV abx and woundvac, PICC in place. Per RN, pt still agreeable with SNF plan and CIWA is 0. Per hospitalist, pt should be medically cleared for discharge tomorrow to SNF. [facility] stated acceptance for Tuesday, 11/11 - transport time pending. PASRR completed and with facesheet. Hospitalist and RN notified of plans for dc tomorrow. Plan: Anticipating discharge to [facility] on 11/11, pending transport time. CM Team will continue to follow for coordination of discharge plans. RICEHLLE Fitzgerald
[2023-11-11 13:15] VITALS: BP 136/95; PULSE 91; RESP 19; TEMP 36.4; O2SAT 98
[2023-11-11] MEDS: ERTAPENEM 1 GM in SODIUM CHLORIDE 0.9% 100 ML IV (14:48)
--- NOTE | 2023-11-11 14:49 | OT.IPNOTE ---
Pt states not feeling well and just wanting to rest. Pt to go to skilled rehab tomorrow.
--- NOTE | 2023-11-11 16:50 | PT-IP ANOTE ---
checked on pt this afternoon and refused PT. stated that she is just not feeling well to do PT.
[2023-11-11 18:20] VITALS: BP 129/49; PULSE 95; RESP 19; TEMP 36.2; O2SAT 98
[2023-11-11 20:00] VITALS: BP 142/67; PULSE 98; RESP 14; TEMP 36.6; O2SAT 98
[2023-11-11] MEDS: SENNOSIDES 8.6 MG TABLET 17.2 MG PO (20:45)
[2023-11-12] VITALS (7 sets, daily range): BP systolic 129–155; BP diastolic 76–92; PULSE 75–100; RESP 12–20; TEMP 36–37.3; O2SAT 95–99
[2023-11-12] MEDS: LEVOTHYROXINE 50 MCG TABLET PO (05:21)
[2023-11-12] MEDS: THIAMINE 100 MG TABLET PO (09:03)
[2023-11-12] MEDS: CHOLECALCIFEROL (VITAMIN D3) 1,000 UNIT TABLET 2000 UNIT PO (09:03)
[2023-11-12] MEDS: chlordiazePOXIDE 10 MG CAPSULE PO ×3 (09:04→20:37)
[2023-11-12] MEDS: ASCORBIC ACID 500 MG TABLET PO (09:04)
[2023-11-12] MEDS: dilTIAZem CD 180 MG CAP PO (09:05)
[2023-11-12] MEDS: FOLIC ACID 1 MG TABLET PO (09:06)
[2023-11-12] MEDS: ASPIRIN EC 81 MG TABLET PO (09:07)
[2023-11-12] MEDS: TRAMADOL 50 MG TABLET PO (09:07)
[2023-11-12] MEDS: MULTIVITAMIN 1 TABLET 1 TAB PO (09:08)
[2023-11-12] MEDS: ENOXAPARIN 40 MG/0.4 ML SYRINGE SUBCUT (09:08)
--- NOTE | 2023-11-12 11:19 | PM.PN.1 ---
Subjective Subjective Date Patient Seen: 11/12/23 Time Patient Seen: 09:40 Interval history: 73 years old female with history of hypothyroidism, GERD, hyperlipidemia, alcohol abuse who was seen on October 28 with left ankle fracture and dislocation. After sedation and splinted she went home and was follow-up with orthopedic surgery. The patient presented today after seeing some seepage on her bed through the splint. She was seen several days ago by orthopedic surgery for follow-up and wound was clean and unremarkable. On examination today the patient had open ankle fracture with exposed bones and infectious drainage. Patient was just having emergent irrigation debridement and open reduction of her ankle and was started on antibiotics. Her last alcohol drink was 2 weeks ago. Denies any withdrawal symptoms. S: She has no complaints today. No fevers or chills, chest pain, shortness of breath or abdominal pain. She had several days of constipation though states that that resolved this morning. Exam Vital Signs (past 8 hours): - 11/12/23 04:00 11/12/23 08:00 Temperature 97.0 F L 99.2 F Pulse Rate 85 75 Respiratory Rate 17 17 Blood Pressure 133/80 139/84 Pulse Oximetry 98 98 Oxygen Flow Rate 0 Oxygen Delivery Method Room Air Oxygen Flow Rate 0 Narrative Exam Narrative: NAD, alert and oriented. Fluent speech. Lungs are clear, normal rate and effort. Heart is regular, no murmur gallop or rub. Abdomen is soft, non distended. Extremities are free of edema. Right ankle has an external fixator and a wound VAC in place. Objective Labs 11/11/23 06:45 11/11/23 06:45 [facility] Surgical History Status post laparoscopy Status post laparotomy Social History household members: spouse Smoking Status: Never smoker alcohol intake: current Assessment & Plan Assessment & Plan narrative: 1. Left ankle fracture, open with enterobacter osteomyelitis. Present on admission and active. -Status post irrigation debridement and open reduction of her ankle. Management per Orthopedics. Nonweightbearing. 2. Enterobacter cloacae osteomyelitis. Present on admission and active. 3. Enterobacter cloacae bacteremia. Present on admission and active. 4. Alcohol use disorder. Present on admission and active. -The patient denies any withdrawal symptoms. Will monitor for now. RAMYA score 1 last night. GERD / history of GI bleeding. continue PPI 5. Chronic A-fib with RVR. Present on admission and active. -continue home diltiazem, rate controlled. initially reported she was not taking diltiazem. Not on AC due to GI bleeding with chronic PPI and sucralfate use. 6. Hypothyroidism. Present on admission and active. -continue levothyroxine. PLAN: -Discussed with infectious disease provider 11/11/2023, presume osteomyelitis based on presentation. Recommended 6 weeks of ertapenem 1g q24 via PICC line for now based on admission qtc of 499, will need to see in outpatient ID clinic. Referral faxed today. Appt is 11/22 at 14:00. -Pain medications as needed -Orthopedic surgery consultation appreciated. Now with external fixator for 6-8 weeks and wound vac to continue until discharge. -DVT prophylaxis per surgery [facility] ([facility]) is medically cleared today, however informed in case meeting with discharge planning, social work, nursing and physical therapy that the facility cannot receive her for logistical reasons. Code: Full Dispo: SNF Quality VTE Deep Vein Thrombosis/Pulmonary Embolism Present on Admission: No
--- NOTE | 2023-11-12 11:20 | PM.PNPO.1 ---
Subjective Subjective Date Patient Seen: 11/12/23 Time Patient Seen: 11:20 Interval history: Patient was a 73-year-old female sustained a fracture dislocation to her right ankle on October 28 when she fell at home. She had a reduction at an emergency room and was placed into a splint. She was scheduled for outpatient surgery however presented to the emergency department prior to this after her noticed that she had been weight-bearing in her splint and drinking heavily and there was a foul smell. She was found to have an open wound and janneth ankle dislocation on her presentation to the ER. This was grossly contaminated. She was taken emergently to the operative room by Dr. Preciado on 11/06 where a washout was performed and she was indicated for further definitive surgery. Dr. Preciado noted that the ankle reduction was extremely hard to hold closed. An external fixator was not available that evening so the patient was reduced in plaster and scheduled for repeat washout and external fixation. This was performed by Dr Potter on 11/08. Per 11/10 CM note, pt was to d/c to SNF this morning. Dr Potter removed her wound VAC in anticipation of this. I was later told that the pt is not going to discharge to SNF today for reasons that are unclear to me. Pt is frustrated about lack of communication but otherwise doing well. Was happy to see Dr Potter. Exam Vital Signs (past 8 hours): - 11/12/23 04:00 11/12/23 08:00 Temperature 97.0 F L 99.2 F Pulse Rate 85 75 Respiratory Rate 17 17 Blood Pressure 133/80 139/84 Pulse Oximetry 98 98 Oxygen Flow Rate 0 Oxygen Delivery Method Room Air Oxygen Flow Rate 0 Narrative Exam Narrative: Pt able to wiggle toes, intact sensation throughout LE. Objective Labs 11/11/23 06:45 11/11/23 06:45 [facility] Surgical History Status post laparoscopy Status post laparotomy Social History household members: spouse Smoking Status: Never smoker alcohol intake: current Assessment & Plan Post-op Assessment and plan (1) Open fracture dislocation of right ankle: Assessment and Plan narrative: 1) Nonweightbearing on the right lower extremity 6-8 weeks. External fixator will say 6-8 weeks then we will be removed after that she will be able to start weight-bearing in a walking boot or cast. She will need a wheelchair. 2) She will be maintained on scheduled IV antibiotics until cultures finalize. She does have dissolvable antibiotic beads in her wounds and may have some discharge related to this. 3) Her sutures remain in place for weeks and she can follow up in Orthopedic Clinic with Dr. Potter in 4 weeks for a wound check. 4) She is currently receiving ASA 81mg daily as well as enoxaparin 40mEq daily for VTE prophylaxis. VTE prophylaxis should be continued for at least 6 weeks postop. 5) Wound cultures positive for enterobacter, currently receiving ertapenem per ID rxs. 6) Disposition, pain control, VTE prophylaxis, abx per hospitalist service. 7) Ortho will continue to follow while pt is inpt.. Postoperative Procedures: Procedures Operation Date: 11/07/23 17:15 Actual Procedure Side Surgeon p right ankle I+D, open reduction right ankle Right Joan Preicado MD Operation Date: 11/09/23 15:15 Actual Procedure Side Surgeon p ankle dressing change, repeat I&D, ORIF WITH Ex Fix Right Vane Potter MD Postoperative day: 3 Quality VTE Deep Vein Thrombosis/Pulmonary Embolism Present on Admission: No
--- NOTE | 2023-11-12 11:26 | PT.IPTN ---
Current Diagnoses Alcohol dependence with withdrawal, unspecified (11/07/23) Bacteremia (11/07/23) Other fracture of right lower leg, initial encounter for closed fracture (11/07/23) Other fracture of right lower leg, initial encounter for open fracture type I or II (11/07/23) Abrasion, right ankle, initial encounter (11/07/23) Dislocation of right ankle joint, initial encounter (11/07/23) Surgery Performed Operation Date: 11/07/23 17:15 Actual Procedures p right ankle I+D, open reduction right ankle(Right) - Joan Preciado MD Operation Date: 11/09/23 15:15 Actual Procedures p ankle dressing change, repeat I&D, ORIF WITH Ex Fix(Right) - Vane Potter MD Physical Therapy Treatment Note M2 PT-IP Current Condition Start: 11/08/23 13:00 Freq: NEEDED Status: Active Protocol: Document 11/10/23 11:30 DLM (Rec: 11/10/23 12:57 DLM [id number]) Physical Therapy Current Condition Current Condition Evaluation Date 11/10/23 Treatment Diagnosis right ankle ORIF w/external fixator Onset Date 11/07/23 M3 PT-IP Subjective Start: 11/08/23 13:00 Freq: NEEDED Status: Active Protocol: Document 11/12/23 12:10 TS (Rec: 11/12/23 12:17 TS [id number]) Subjective Physical Therapy Visit Type Type Treatment Note Visit Start Time 11:26 Visit Stop Time 11:43 Number of INTERNET RESEARCHER Visits 1 Physical Therapy Visit Comments Patient Comments Pt is agreeable to PT. Therapy Pain Assessment Pain When Pain Assessed At Rest Pain Present Pain Present Pain Reported M4 PT-IP Mobility and Gait Start: 11/08/23 13:00 Freq: NEEDED Status: Active Protocol: Document 11/12/23 12:10 TS (Rec: 11/12/23 12:17 TS [id number]) PT-Bed Mobility Assessment Supine to Sit Supine to Sit Standby Assistance PT-Transfer Assessment Sit to and From Stand Sit to and from Stand Maximum Assistance,1 Person Assistance,2 Person Assistance ,Use of Upper Extremities Equipment Transfer Assistive Device Gait Belt,Front Wheeled Walker Transfers Transfer Destination Chair Transfer Technique Stand Pivot Transfer Ability Level of Assist Maximum Assistance,1 Person Assistance,2 Person Assistance ,Use of Upper Extremities Comments Mobility Comments Pt is impulsive to move before therapist is done setting up the room. Supine to sit SBA with HOB elevated. STS with FWW MaxA x1. She performs stand pivot to chair MaxA x1- 2PA for safety. She shuffles LLE and can single hop at times to get to the chair. Pt performs SLR and glute sets in chair. pt was left in the chair, all needs met. Gait Assessment Comments Gait Comments unable at this time PT-Balance Assessment Sitting Balance and Reactions Static Sitting Balance Ability Good Dynamic Sitting Balance Ability Good Standing Balance and Reactions Static Standing Balance Ability Fair Dynamic Standing Balance Ability Poor Device Used FWW M5 PT-IP Objective Assessments Start: 11/08/23 13:00 Freq: NEEDED Status: Active Protocol: Document 11/10/23 11:30 DLM (Rec: 11/10/23 12:57 DLM [id number]) Orientation Orientation/Cognition Level of Alertness Alert Orientation Name,Age,Birthday,Month,Date, Year,Day of Week,Place, Situation Language Function Ability No Deficits Noted Safety Awareness Decreased Safety Awareness Comments she needs repetition of new information Coordination Assessment Gross Coordination Gross Coordination Impaired Assessment Coordination Comments mild tremors, mild to moderate decrease in coordination with activity Sensation Assessment Comments Sensation Comments she reports no numbness, splint on right ankle with external fixator M6 PT-IP Treatment Start: 11/08/23 13:00 Freq: NEEDED Status: Active Protocol: Document 11/12/23 12:10 TS (Rec: 11/12/23 12:17 TS [id number]) Physical Therapy Treatment Education Education Provided Precautions,Weight Bearing Status,Safety M7 PT-IP Assessment and Plan Start: 11/08/23 13:00 Freq: NEEDED Status: Active Protocol: Document 11/12/23 12:10 TS (Rec: 11/12/23 12:17 TS [id number]) PT Summary Assessment and Plan Potential Rehabilitation Potential Fair Summary Impairments Pain,ROM,Strength,Balance, Coordination,Sensation,Tone, Cognition,Bed Mobility, Transfers,Gait,Activity Tolerance Progress Towards Goals Slow Progress due to Medical Issues,Slow Progress due to Activity Tolerance,Slow Progress - Other Assessment Summary Agustina continues to need MaxA 1-2PA with FWW for transfer to chair. She maintains RLE NWB during transfer with cues. She is impulsive and lacks good safety awareness. PT continues to recommend SNF. Goals Bed Mobility Goal Independent Transfer Goal Independent,Front Wheeled Walker Gait Goal Independent,Front Wheel Walker Gait Distance 10 Other Goals NWB right LE for transfers and gait Scoot/slide board transfer bed -commode with stand by assist. Days to Meet Goals 10 Frequency of Treatment Other frequency 1-2x /day Treatment Plan Physical Therapy Treatment Plan Bed Mobility Training,Transfer Training,Gait Training, Therapeutic Exercise,Balance Retraining,Post Op Education, Discharge Planning,Hot or Cold Pack,Neuromuscular Re-ed, Coordination Retraining,Manual Therapy Other Recommendations and Next Treatment slide board and sitting Focus scooting transfers drop arm commode is in her room for training Precautions Other Precautions no more wound vac Weight Bearing Status Weight Bearing Status Non-Weight Bearing Allowed Weight Bearing Amount (enter % NWB RLE : strict, right ankle or #) (%) with external fixator Recommendations To Nursing Amount of Assist Needed Mechanical Lift Discharge Recommendations PT Discharge Recommendations SNF Rehab Transportation Needs at Discharge Wheelchair/Cabulance
--- NOTE | 2023-11-12 12:55 | PT.IPTN ---
Current Diagnoses Alcohol dependence with withdrawal, unspecified (11/07/23) Bacteremia (11/07/23) Other fracture of right lower leg, initial encounter for closed fracture (11/07/23) Other fracture of right lower leg, initial encounter for open fracture type I or II (11/07/23) Abrasion, right ankle, initial encounter (11/07/23) Dislocation of right ankle joint, initial encounter (11/07/23) Surgery Performed Operation Date: 11/07/23 17:15 Actual Procedures p right ankle I+D, open reduction right ankle(Right) - Joan Preciado MD Operation Date: 11/09/23 15:15 Actual Procedures p ankle dressing change, repeat I&D, ORIF WITH Ex Fix(Right) - Vane Potter MD Physical Therapy Treatment Note M2 PT-IP Current Condition Start: 11/08/23 13:00 Freq: NEEDED Status: Active Protocol: Document 11/10/23 11:30 DLM (Rec: 11/10/23 12:57 DLM [id number]) Physical Therapy Current Condition Current Condition Evaluation Date 11/10/23 Treatment Diagnosis right ankle ORIF w/external fixator Onset Date 11/07/23 M3 PT-IP Subjective Start: 11/08/23 13:00 Freq: NEEDED Status: Active Protocol: Document 11/12/23 13:14 TS (Rec: 11/12/23 13:27 TS [id number]) Subjective Physical Therapy Visit Type Type Treatment Note Visit Start Time 12:55 Visit Stop Time 13:13 Number of [employer] Visits 2 Physical Therapy Visit Comments Patient Comments Pt requesting back to bed, PT into assist. Therapy Pain Assessment Pain When Pain Assessed At Rest Pain Present Pain Present Pain Reported M4 PT-IP Mobility and Gait Start: 11/08/23 13:00 Freq: NEEDED Status: Active Protocol: Document 11/12/23 13:14 TS (Rec: 11/12/23 13:27 TS [id number]) PT-Bed Mobility Assessment Sit to Supine Sit to Supine Standby Assistance,Bedrails Scooting Scooting Up and Down in Bed Standby Assistance PT-Transfer Assessment Sit to and From Stand Sit to and from Stand Maximum Assistance,1 Person Assistance,2 Person Assistance ,Use of Upper Extremities Equipment Transfer Assistive Device Gait Belt,Front Wheeled Walker Orthotic/Prosthetic Devices or Brace: No Transfers Transfer Destination Bed Transfer Technique Stand Pivot Transfer Ability Level of Assist Maximum Assistance,1 Person Assistance,2 Person Assistance ,Use of Upper Extremities Comments Mobility Comments STS from lower surface of the chair MaxA x1 with cues for pushing from arms of the chair . Stand pivot to bed MaxA x1- 2PA with FWW. Pt maintains RLE off ground and is NWB, she shuffles her L foot to bed. Sit to supine into bed SBA, pt requires extra time to get RLE in bed. Pt was left in the bed, nursing tending to needs . Gait Assessment Comments Gait Comments unable at this time PT-Balance Assessment Sitting Balance and Reactions Static Sitting Balance Ability Good Dynamic Sitting Balance Ability Good Standing Balance and Reactions Static Standing Balance Ability Fair Dynamic Standing Balance Ability Poor Device Used FWW M5 PT-IP Objective Assessments Start: 11/08/23 13:00 Freq: NEEDED Status: Active Protocol: Document 11/10/23 11:30 DLM (Rec: 11/10/23 12:57 DLM [id number]) Orientation Orientation/Cognition Level of Alertness Alert Orientation Name,Age,Birthday,Month,Date, Year,Day of Week,Place, Situation Language Function Ability No Deficits Noted Safety Awareness Decreased Safety Awareness Comments she needs repetition of new information Coordination Assessment Gross Coordination Gross Coordination Impaired Assessment Coordination Comments mild tremors, mild to moderate decrease in coordination with activity Sensation Assessment Comments Sensation Comments she reports no numbness, splint on right ankle with external fixator M6 PT-IP Treatment Start: 11/08/23 13:00 Freq: NEEDED Status: Active Protocol: Document 11/12/23 13:14 TS (Rec: 11/12/23 13:27 TS [id number]) Physical Therapy Treatment Education Education Provided Precautions,Weight Bearing Status,Safety M7 PT-IP Assessment and Plan Start: 11/08/23 13:00 Freq: NEEDED Status: Active Protocol: Document 11/12/23 13:14 TS (Rec: 11/12/23 13:27 TS [id number]) PT Summary Assessment and Plan Potential Rehabilitation Potential Fair Summary Impairments Pain,ROM,Strength,Balance, Coordination,Sensation,Tone, Cognition,Bed Mobility, Transfers,Gait,Activity Tolerance Progress Towards Goals Slow Progress due to Medical Issues,Slow Progress due to Activity Tolerance,Slow Progress - Other Assessment Summary Pt continues to have diffiuclty with transfers. She requires 1-2PA MaxA to get from the chair to bed. She does maintain NWB on RLE with the transfer. She was less impulsive this session and followed instructions well. PT continues to recommend SNF. Goals Bed Mobility Goal Independent Transfer Goal Independent,Front Wheeled Walker Gait Goal Independent,Front Wheel Walker Gait Distance 10 Other Goals NWB right LE for transfers and gait Scoot/slide board transfer bed -commode with stand by assist. Days to Meet Goals 10 Frequency of Treatment Other frequency 1-2x /day Treatment Plan Physical Therapy Treatment Plan Bed Mobility Training,Transfer Training,Gait Training, Therapeutic Exercise,Balance Retraining,Post Op Education, Discharge Planning,Hot or Cold Pack,Neuromuscular Re-ed, Coordination Retraining,Manual Therapy Other Recommendations and Next Treatment stand pivot transfers Focus Precautions Other Precautions no more wound vac Weight Bearing Status Weight Bearing Status Non-Weight Bearing Allowed Weight Bearing Amount (enter % NWB RLE : strict, right ankle or #) (%) with external fixator Recommendations To Nursing Amount of Assist Needed Mechanical Lift Discharge Recommendations PT Discharge Recommendations SNF Rehab Transportation Needs at Discharge Wheelchair/Cabulance
--- NOTE | 2023-11-12 13:31 | CM.DPC ---
DCP Cont Per MD and Ortho PA, pt's white count increased but not a barrier to discharge to SNF at this time and medically stable for SNF. SW spoke to [facility] admissions and they already have 2 female admits today and no other available female beds until 11/13 but pt's insurance auth for SNF is good until 11/15/23. RN and Ortho updated pt and family bedside regarding bed availability and they were disappointed pt would not get to go to [facility] today but acknowledge understanding. Plan; [facility] Monday 11/13 when female bed available. PASRR done and auth obtained. Colleen Stovall, [employer]
[2023-11-12] MEDS: ERTAPENEM 1 GM in SODIUM CHLORIDE 0.9% 100 ML IV (15:01)
--- NOTE | 2023-11-12 19:13 | PC.NURSE ---
Assumed care of pt at 1445, A&Ox4 but forgetful. No c/o pain at the moment, lungs CTA, CMS+, good pedal pulse to LLE, bowel sounds present and multiple loose stools today. Tele reading afib w/BBB. Manuel wrap dressing to LLE with protruding external hardware present, dressing is c/d/i. Patient has no needs at this time. Call light within reach, bed in low position.
[2023-11-13] MEDS: LEVOTHYROXINE 50 MCG TABLET PO (05:14)
[2023-11-13 06:00] VITALS: BP 141/85; PULSE 78; RESP 17; TEMP 36.1; O2SAT 98
--- NOTE | 2023-11-13 07:27 | PM.PN.1 ---
Subjective Subjective Date Patient Seen: 11/13/23 Time Patient Seen: 11:20 Interval history: 73 years old female with history of hypothyroidism, GERD, hyperlipidemia, alcohol abuse who was seen on October 28 with left ankle fracture and dislocation. After sedation and splinted she went home and was follow-up with orthopedic surgery. The patient presented today after seeing some seepage on her bed through the splint. She was seen several days ago by orthopedic surgery for follow-up and wound was clean and unremarkable. On examination today the patient had open ankle fracture with exposed bones and infectious drainage. Patient was just having emergent irrigation debridement and open reduction of her ankle and was started on antibiotics. Her last alcohol drink was 2 weeks ago. Denies any withdrawal symptoms. S: Exam Vital Signs (past 8 hours): - 11/13/23 06:00 Temperature 97 F L Pulse Rate 78 Respiratory Rate 17 Blood Pressure 141/85 H Pulse Oximetry 98 Oxygen Flow Rate 0 Oxygen Delivery Method Room Air Oxygen Flow Rate 0 Objective Labs 11/11/23 06:45 11/11/23 06:45 [facility] Surgical History Status post laparoscopy Status post laparotomy Social History household members: spouse Smoking Status: Never smoker alcohol intake: current Assessment & Plan Time-Based Coding :: [TOTAL MINUTES] spent with patient and on the chart (including review of chart, obtaining history, exam, reviewing outside data, placing orders, documenting exam and treatment plan, and counseling patient) on [DATE]. Quality VTE Deep Vein Thrombosis/Pulmonary Embolism Present on Admission: No
[2023-11-13 08:00] VITALS: BP 139/96; PULSE 78; RESP 16; TEMP 36.3; O2SAT 98
[2023-11-13] MEDS: FOLIC ACID 1 MG TABLET PO (08:32)
[2023-11-13] MEDS: dilTIAZem CD 180 MG CAP PO (08:32)
[2023-11-13] MEDS: ASPIRIN EC 81 MG TABLET PO (08:33)
[2023-11-13] MEDS: THIAMINE 100 MG TABLET PO (08:33)
[2023-11-13] MEDS: MULTIVITAMIN 1 TABLET 1 TAB PO (08:33)
[2023-11-13] MEDS: ENOXAPARIN 40 MG/0.4 ML SYRINGE SUBCUT (08:33)
[2023-11-13] MEDS: CHOLECALCIFEROL (VITAMIN D3) 1,000 UNIT TABLET 2000 UNIT PO (08:33)
[2023-11-13] MEDS: chlordiazePOXIDE 10 MG CAPSULE PO (08:33)
[2023-11-13] MEDS: ASCORBIC ACID 500 MG TABLET PO (08:36)
--- NOTE | 2023-11-13 10:22 | PM.DS.1 ---
History of Present Illness History of Present Illness Date Patient Seen: 11/13/23 Time Patient Seen: 09:10 Date of Onset of Symptoms: 11/07/23 Chief complaint: Right ankle pain, infected Narrative: 73 years old female with history of hypothyroidism, GERD, hyperlipidemia, alcohol abuse who was seen on October 28 with left ankle fracture and dislocation. After sedation and splinted she went home and was follow-up with orthopedic surgery. The patient presented today after seeing some seepage on her bed through the splint. She was seen several days ago by orthopedic surgery for follow-up and wound was clean and unremarkable. On examination today the patient had open ankle fracture with exposed bones and infectious drainage. Patient was just having emergent irrigation debridement and open reduction of her ankle and was started on antibiotics. Her last alcohol drink was 2 weeks ago. Denies any withdrawal symptoms. Discharge Providers Provider Date of admission: 11/07/23 15:25 Discharge Date: 11/13/23 Primary care physician: Amina Dukes PA-C Consults: 11/07/23 20:09 Consult to Discharge Planning Routine Comment: Consult to Occupational Therapy Evaluate & Treat Comment: Physician Instructions: Evaluate and treat Consult to Physical Therapy Evaluate & Treat Comment: Physician Instructions: Evaluate and Treat 11/08/23 10:32 Consult to Physician Routine Comment: Consulting Provider: Vane Potter Reason for consultation: ankle fracture Has provider been notified: Yes 11/09/23 19:08 Consult to Discharge Planning Routine Comment: Consult to Occupational Therapy Evaluate & Treat Comment: Physician Instructions: Evaluate and treat Consult to Physical Therapy Evaluate & Treat Comment: Nonweightbearing right lower extremity Physician Instructions: Evaluate and Treat Discharge provider: Laurent Rahman MD Summary Hospital Course Discharge Diagnosis: 1. Left ankle fracture, open with enterobacter osteomyelitis. 2. Enterobacter cloacae osteomyelitis. 3. Enterobacter cloacae bacteremia. 4. Alcohol use disorder. 5. Chronic atrial fibrillation. 6. Hypothyroidism. Hospital Course: 73-year-old woman known to the primary care of Amina Dukes PA-C was admitted and underwent irrigation, debridement and open reduction of the ankle on 11/07/2023 and subsequent placement of an external fixation device, repair of a posterior tibialis tendon and administration of antibiotic beads with debridement of the wound on 11/09/2023, treated with IV ertapenem during her hospitalization, with cultures demonstrating Enterobacter cloaca zheng osteomyelitis in wound and blood. She also has a history of alcohol use disorder and was treated with an oral chlordiazepoxide taper completed at the time of discharge, with no evidence of withdrawal. Atrial fibrillation remained stable and rate controlled with resumption of her usual oral home diltiazem. She is not on anticoagulation due to history of gastrointestinal bleeding on chronic PPI therapy. Arrangements were made for senior living facility placement. PICC line was placed. Planned 6 weeks of IV ertapenem through 12/21/2023. DVT prophylaxis with enoxaparin was administered throughout her hospitalization. No other issues arose Status at Discharge Cognitive/behavioral status at discharge: oriented Functional status at discharge: independent ambulation Overall status at discharge: patient is not back to baseline Time Spent with Patient Time spent: Greater than 30 minutes Exam Vital Signs (past 8 hours): - 11/13/23 06:00 11/13/23 08:00 Temperature 97 F L 97.4 F L Pulse Rate 78 78 Respiratory Rate 17 16 Blood Pressure 141/85 H 139/96 H Pulse Oximetry 98 98 Oxygen Flow Rate 0 0 Oxygen Delivery Method Room Air Oxygen Flow Rate 0 Narrative Exam Narrative: NAD, alert and oriented. Fluent speech. Lungs are clear, normal rate and effort. Heart is regular, no murmur gallop or rub. Abdomen is soft, non distended. Extremities are free of edema. Right ankle has an external fixator in place. Objective Imaging *: Radiologist's impression: Right ankle x-ray 11/07/2023: Significant increased displacement of the bi malleolar fracture dislocation. Correlate with any open injury at the medial malleolar region. Right ankle x-ray 11/09/2023: Fluoroscopy was provided. Dosimetry values are not delineated. Nine fluoroscopic spot images are submitted which are described under separate operative report. Chest x-ray 11/10/2023: Tip of PICC projects to the area of distal SVC. Labs 11/11/23 06:45 11/11/23 06:45 [facility] Surgical History Status post laparoscopy Status post laparotomy Social History household members: spouse Smoking Status: Never smoker alcohol intake: current Discharge Plan Discharge Plan Patient Disposition: SNF Transfer to: [facility] Consult as needed: Dental, Hearing, Mental health, Podiatry and Vision Discharge orders & Medications Prescriptions: New tramadol 50 mg Tablet 50 mg PO QID PRN (Reason: Pain, Moderate (4-6)) Qty: 30 0RF aspirin 81 mg Tablet,Delayed Release (Dr/Ec) 81 mg PO DAILY Qty: 30 0RF enoxaparin [Lovenox] 40 mg/0.4 mL Syringe 40 mg SUBCUT DAILY Qty: 30 0RF ertapenem 1 gram Recon Soln 1 g IV Q24H Qty: 38 0RF Rx Instructions: Through 12/21/2023 Continued Fish Oil (Fish Oil 500 MG Softgel) 500 mg PO QDAY Qty: 0 VITAMIN D (Vitamin D3) 2,000 unit PO QDAY Qty: 0 ascorbic acid (vitamin C) 500 MG tablet 500 mg PO QDAY Qty: 0 diltiazem HCl 180 MG capsule,extended release 24hr 180 mg PO QDAY Qty: 30 0RF pantoprazole 40 MG tablet,delayed release (DR/EC) 40 mg PO BID Qty: 60 0RF levothyroxine 50 mcg tablet 50 mcg PO DAILY cyclosporine 0.05 % dropperette 1 drp EYE-BOTH BID vitamin E 400 unit Tablet 400 unit PO DAILY vitamin B complex [B Complex] Capsule 1 cap PO DAILY Follow up/Referrals: Vane Potter MD [Physician] - (Follow up w/ Dr Potter for wound check in 4 weeks.) Amina Dukes PA-C [Primary Care Provider] - Other Ambulatory Orders: Referral to: (Schedule) Timeframe: 2 Weeks Location: Determined by Patient Ordered By: Thom Polk Diet/Activity/Treatments Diet: Regular Activity: Nonweightbearing to right lower extremity x 6-8 weeks. Visit Report/Discharge Packet Stand Alone Forms: Patient Portal/API Discharge Data Primary Care Provider: Amina Dukes Quality VTE Deep Vein Thrombosis/Pulmonary Embolism Present on Admission: No MIPS - Admit I confirm the patient?s Advance Care Plan is present, Code status is documented, Surrogate decision maker is in patient?s record [If Yes, STOP here]: Yes MIPS - Meds 'Current medications' to include all prescriptions, [id number]-kalttps products, herbals, cannabis/cannabidiol products, and vitamin/mineral/dietary (nutritional) supplements. I have utilized all available resources to obtain, update, or review the patient?s current medications. [If Yes, STOP here]: Yes MIPS - DC The patient has a history of heart transplant or Left Ventricular Assist Device (LVAD). If yes, STOP here.: No The patient has current or prior documentation of left ventricular ejection fraction (LVEF) less than or equal to 40%, or moderate or severely depressed left ventricular systolic function.: No A. The patient was prescribed or already taking an Angiotensin-Converting Enzyme (ANGIE) Inhibitor, or Angiotensin Receptor Susan (ARB).: No B. The patient was prescribed or already taking a beta-susan. [If Yes to Both A & B, STOP here]: No Patient not prescribed/taking ANGIE or ARB, no reason given.: No Patient not prescribed/taking beta-susan, no reason given.: No PROFEE Charge Codes Discharge inpatient/observation: [id number]
--- NOTE | 2023-11-13 10:54 | CM.DPC ---
DCP Cont. Reviewed EMR and team rounds for status updates. Pt has been medically cleared for d/c to SNF Rehab today. Faxed d/c clinicals and script to [facility], they will transport at 11:30am. No further needs indicated at this time. IMM given.
--- NOTE | 2023-11-13 12:16 | PC.NURSE ---
Pt discharged to [facility] rehab at 1215, escorted off floor in wheelchair accompanied by facility designee. PIV removed but PICC left in place for IV abx. Tele d/c'd, discharge information included in discharge packet sent with facility designee. Report called to Beryl ([phone]) at 1100. patient left the room with all belongings.
== END 2023-11-13 12:18 | DRG 493 ==
LOC: ED 14:18 → AC 15:25
PROVIDERS: Internal Medicine; Orthopaedic Surgery; Orthopaedic Surgery Foot and Ankle Surgery; Admitting Provider Hospitalist; Emergency Provider Emergency Medicine; PCP Physician Assistant; Referring Provider Emergency Medicine; Visit Provider Hospitalist
PROC: 0QSG0ZZ Reposition Right Tibia, Open Approach (ICD-10-PCS; principal; 2023-11-07 17:15)
PROC: 0SSF04Z Reposition Right Ankle Joint with Internal Fixation Device, Open Approach (ICD-10-PCS; principal; 2023-11-09 15:15)
DX: S82.851B Displaced trimalleolar fracture of right lower leg, initial encounter for open fracture type I or II (principal); I48.20 Chronic atrial fibrillation, unspecified; M86.8X7 Other osteomyelitis, ankle and foot; E03.9 Hypothyroidism, unspecified; B96.89 Other specified bacterial agents as the cause of diseases classified elsewhere; F10.90 Alcohol use, unspecified, uncomplicated; I10 Essential (primary) hypertension; K21.9 Gastro-esophageal reflux disease without esophagitis; W19.XXXA Unspecified fall, initial encounter
CPT/HCPCS: 36415; 36569; 73610; 76000; 80048; 80053; 82550; 83605; 83735; 85025; 85651; 86140; 87040; 87070; 87075; 87077; 87154; 87186; 87205; 93005; 93010; 96365; 96367; 97162; 97164; 97166; 97530; 99284; C1713; J0690; J0692; J0696; J1100; J1335; J1642; J1650; J2060; J2405; J2704; J3010; J3475

== ENCOUNTER → 2023-12-14 12:57 | Outpatient (CLI) | payer MEDICARE, SELFPAY ==
[2023-11-07 20:17] VITALS: BMI 25.8
== END ==
PROVIDERS: PCP Physician Assistant; Referring Provider Orthopaedic Surgery Foot and Ankle Surgery; Visit Provider Surgery
DX: T81.30XA Disruption of wound, unspecified, initial encounter (principal); S91.001A Unspecified open wound, right ankle, initial encounter
CPT/HCPCS: 11042; 99203; 99212

== ENCOUNTER → 2023-12-21 10:45 | Outpatient (CLI) | payer MEDICARE, SELFPAY ==
[2023-11-07 20:17] VITALS: BMI 25.8
== END ==
PROVIDERS: PCP Physician Assistant; Referring Provider Orthopaedic Surgery Foot and Ankle Surgery; Visit Provider Surgery
DX: T81.89XA Other complications of procedures, not elsewhere classified, initial encounter (principal); L98.8 Other specified disorders of the skin and subcutaneous tissue; S91.001A Unspecified open wound, right ankle, initial encounter; R60.0 Localized edema; R23.4 Changes in skin texture; I10 Essential (primary) hypertension
CPT/HCPCS: 11042

== ENCOUNTER → 2023-12-27 14:41 | Outpatient (CLI) | payer MEDICARE, SELFPAY ==
[2023-11-07 20:17] VITALS: BMI 25.8
== END ==
PROVIDERS: PCP Physician Assistant; Referring Provider Physician Assistant; Visit Provider Surgery
DX: T81.89XA Other complications of procedures, not elsewhere classified, initial encounter (principal); L98.8 Other specified disorders of the skin and subcutaneous tissue; R60.0 Localized edema; S81.801A Unspecified open wound, right lower leg, initial encounter
CPT/HCPCS: 11042; 87070; 87075; 87147; 87205

== ENCOUNTER 2023-12-28 10:23 | Day surgery (SDC) | payer MEDICARE, SELFPAY ==
[2023-11-07 20:17] VITALS: BMI 25.8
[2023-12-28] VITALS (7 sets, daily range): BP systolic 111–123; BP diastolic 49–66; PULSE 70–101; RESP 13–17; TEMP 36.2–37.1; O2SAT 94–99; BMI 27.4; BMI 26.6
--- NOTE | 2023-12-28 | DI.RAD.S_ITS ---
PROCEDURE: XR ANKLE RT 2V INDICATIONS: FIXATION REMOVAL TECHNIQUE: 2 digital image from the OR are submitted. COMPARISON: [facility], CR, XR ANKLE RT MIN 3V, 11/09/2023, 15:48. FINDINGS: Bones: Lateral plate and screws are seen over the distal fibula lateral malleolus with 2 screws extending across interosseous membrane in the tibia. Oblique fracture of the distal fibula has been reduced reduced anatomic alignment. Fracture of the tip of the medial malleolus is again noted Tibiotalar and talocalcaneal joints: Normal in width and alignment without arthritic change. Soft tissues: No soft tissue swelling, calcification or mass. IMPRESSION: ORIF distal fibular fracture reduced to anatomic alignment with interosseous membrane stabilization . Avulsion fracture of the tip of the medial malleolus again noted Dictated by: Mo Austin M.D. on 12/29/2023 at 12:00 Approved by: Mo Austin M.D. on 12/29/2023 at 12:02
[2023-12-28] MEDS: LACTATED RINGERS 1,000 ML 42 ML IV (11:43)
[2023-12-28] MEDS: ACETAMINOPHEN 325 MG TABLET 975 MG PO (11:55)
--- NOTE | 2023-12-28 12:27 | PM.PREOP ---
Pre-operative Note Interval Note History & Physical reviewed/Exam performed by Physician: Yes Changes to H&P: No
[2023-12-28] MEDS: CEFAZOLIN 2 GM/100 ML PREMIX 100 ML IV (12:57)
[2023-12-28] MEDS: BUPIVACAINE 0.25% (PF) 30 ML, EPINEPHrine 0.15 MG INJ (13:16)
--- NOTE | 2023-12-28 13:20 | SUR.OPER ---
Supine on padded OR bed, head on pillow, arms secured on padded arm boards at <90 degrees abduction, safety belt abdomen, tape over blanket over lower non surgical leg.
--- NOTE | 2023-12-28 14:14 | P.OP_ITS ---
Operative Date/Time/Diagnoses Date of procedure: 12/28/23 Time of procedure: 14:15 Pre-op diagnosis: Open trimalleolar ankle fracture right Post-op diagnosis: same Procedure & Clinicians Procedure: 1. Removal under anesthesia external fixation system CPT code 45648 right, staged procedure modifier 58 2. Debridement subcutaneous tissue skin and bone 1st 20 sq cm CPT code 29666 modifier 59 separate site Same procedure as scheduled: Yes Indications: The patient was a 73-year-old female that had a history of an right ankle fracture. She walked on this and developed an open wound medial and had an open infected ankle fracture when she presented for care. She had a staged treatment with a partial ORIF and external fixation placement and has been on IV antibiotics and been seeing wound care for the medial wound. She presents today for staged removal of the external fixation as well as debridement of the right medial wound. The risks and benefits of the procedure have been discussed with the patient and given the opportunity to ask questions. The risks of surgery include but are not limited to infection, malunion, nonunion, persistence of pain, damage to nerves and blood vessels, posttraumatic arthritis, DVT, PE, cardiopulmonary complications and . The patient expressed a thorough understanding of the risks and benefits of surgery and has elected to proceed. Consent was signed in the office Surgeon: Vane Potter Click Yes if Unassisted: Yes Anesthesia Type: General and Local Operative Notes Findings: Asymmetric mortise. Stable alignment right ankle fracture status post lateral fixation and syndesmotic screws. Open wound medial was some granulation tissue. No purulence. Still full- thickness. 1 x 1.5 cm Closure Type: primary Specimen(s): none sent Estimated Blood Loss (mL): 10 Blood products transfused: none Tourniquet time (min): 0 Procedure in detail: Patient was seen in the preoperative area site of surgery was marked and informed consent confirmed. This was the right ankle. The patient was brought back to the operating room by the anesthesia team positioned supine on operative table. General anesthetic was administered. The right lower extremity was prepped and draped in the standard sterile fashion a formal time-out procedure was performed confirming the patient's side and site of surgery administration of appropriate preoperative antibiotic all were in agreement. Attention turned to the right side the wrenches were used to remove the external fixator and then the T-handle was used to remove the pins. The pin sites were then curetted irrigated and closed with a simple nylon suture for loose approximation. C-arm was then brought in and demonstrated a appropriate internal fixation maintenance of the mortise and AP and lateral planes. The attention was then turned to the medial wound there was medial wound 1 x 1.5 cm. There was some granulation tissue small amount of fibrinous tissue. This was separately curetted. And debrided including skin subcutaneous tissue and bone. Skin was mobilized but was still too tight for primary closure. One suture was placed at the most distal aspect of the wound. And the restless refer healing by secondary intention. There was no obvious purulence. One old deep absorbable suture was visualized and removed. At this point the wound was cleansed the leg was cleansed. And dressings were placed on the wound with a Mepilex and the distal pin sites. Proximal pin sites were covered with an Aquacel. And a dressing with gauze Webril and a posterior splint were applied. The patient was awoken from anesthesia and taken to recovery room in good condition. Complications: none Post-operative Condition: stable Disposition: PACU Plan for aftercare: She will be 25-50% weight-bearing in the splint but must use the walker. She will resume wound care for the medial wound. She will follow up in Orthopedic Clinic in 1-2 weeks to be switched from the splint to a walking boot again for partial weight bearing through the next 6 weeks while we are working on wound healing.
== END 2023-12-28 15:03 | disposition home or self-care (01) ==
PROVIDERS: PCP Physician Assistant; Referring Provider Orthopaedic Surgery Foot and Ankle Surgery; Visit Provider Orthopaedic Surgery Foot and Ankle Surgery
PROC: (CPT 11044; principal; 2023-12-28 12:15)
DX: S82.841D Displaced bimalleolar fracture of right lower leg, subsequent encounter for closed fracture with routine healing (principal); S91.001D Unspecified open wound, right ankle, subsequent encounter; W19.XXXD Unspecified fall, subsequent encounter; Y92.009 Unspecified place in unspecified non-institutional (private) residence as the place of occurrence of the external cause
CPT/HCPCS: 11044; 20694; 73600; 76000; J0171; J0690; J2250; J2405; J2704; J3010

== ENCOUNTER → 2024-01-03 13:13 | Outpatient (CLI) | payer MEDICARE, SELFPAY ==
[2023-11-07 20:17] VITALS: BMI 25.8
== END ==
PROVIDERS: PCP Physician Assistant; Referring Provider Orthopaedic Surgery Foot and Ankle Surgery; Visit Provider Surgery
DX: T81.89XA Other complications of procedures, not elsewhere classified, initial encounter (principal); L98.8 Other specified disorders of the skin and subcutaneous tissue; S91.001A Unspecified open wound, right ankle, initial encounter; R60.0 Localized edema; I10 Essential (primary) hypertension
CPT/HCPCS: 11042

== ENCOUNTER → 2024-01-16 15:01 | Outpatient (CLI) | payer MEDICARE, SELFPAY ==
[2023-11-07 20:17] VITALS: BMI 25.8
== END ==
PROVIDERS: PCP Physician Assistant; Referring Provider Orthopaedic Surgery Foot and Ankle Surgery; Visit Provider Surgery
DX: T81.89XA Other complications of procedures, not elsewhere classified, initial encounter (principal); L98.8 Other specified disorders of the skin and subcutaneous tissue; S91.001A Unspecified open wound, right ankle, initial encounter; R60.0 Localized edema; I10 Essential (primary) hypertension
CPT/HCPCS: 11042; 99213

== ENCOUNTER → 2024-01-23 14:59 | Outpatient (CLI) | payer MEDICARE, SELFPAY ==
[2023-11-07 20:17] VITALS: BMI 25.8
== END ==
LOC: WC 15:00
PROVIDERS: PCP Physician Assistant; Referring Provider Orthopaedic Surgery Foot and Ankle Surgery; Visit Provider Surgery
DX: T81.31XA Disruption of external operation (surgical) wound, not elsewhere classified, initial encounter (principal); L98.8 Other specified disorders of the skin and subcutaneous tissue; S91.001A Unspecified open wound, right ankle, initial encounter; R60.0 Localized edema
CPT/HCPCS: 11042

== ENCOUNTER → 2024-02-06 14:13 | Outpatient (CLI) | payer MEDICARE, SELFPAY ==
[2023-11-07 20:17] VITALS: BMI 25.8
== END ==
LOC: WC 14:15
PROVIDERS: Family Provider Physician Assistant; PCP Physician Assistant; Referring Provider Orthopaedic Surgery Foot and Ankle Surgery; Visit Provider Surgery
DX: T81.89XA Other complications of procedures, not elsewhere classified, initial encounter (principal); L98.8 Other specified disorders of the skin and subcutaneous tissue; S91.001A Unspecified open wound, right ankle, initial encounter; R60.0 Localized edema; I10 Essential (primary) hypertension
CPT/HCPCS: 11042

== ENCOUNTER → 2024-02-13 14:33 | Outpatient (CLI) | payer MEDICARE, SELFPAY ==
[2023-11-07 20:17] VITALS: BMI 25.8
== END ==
PROVIDERS: Family Provider Physician Assistant; PCP Physician Assistant; Referring Provider Physician Assistant; Visit Provider Surgery
DX: T81.89XA Other complications of procedures, not elsewhere classified, initial encounter (principal); L98.8 Other specified disorders of the skin and subcutaneous tissue; S91.001A Unspecified open wound, right ankle, initial encounter; R60.0 Localized edema; I10 Essential (primary) hypertension
CPT/HCPCS: 11042; 99213

== ENCOUNTER → 2024-02-20 15:06 | Outpatient (CLI) | payer MEDICARE, SELFPAY ==
[2023-11-07 20:17] VITALS: BMI 25.8
== END ==
LOC: WC 15:07
PROVIDERS: Family Provider Physician Assistant; PCP Physician Assistant; Referring Provider Orthopaedic Surgery Foot and Ankle Surgery; Visit Provider Surgery
DX: T81.89XA Other complications of procedures, not elsewhere classified, initial encounter (principal); L98.8 Other specified disorders of the skin and subcutaneous tissue; S91.001A Unspecified open wound, right ankle, initial encounter; R60.0 Localized edema
CPT/HCPCS: 11042

== ENCOUNTER → 2024-02-27 15:37 | Outpatient (CLI) | payer MEDICARE, SELFPAY ==
[2023-11-07 20:17] VITALS: BMI 25.8
== END ==
PROVIDERS: Family Provider Physician Assistant; PCP Physician Assistant; Referring Provider Orthopaedic Surgery Foot and Ankle Surgery; Visit Provider Surgery
DX: T81.89XA Other complications of procedures, not elsewhere classified, initial encounter (principal); L98.8 Other specified disorders of the skin and subcutaneous tissue; S91.001A Unspecified open wound, right ankle, initial encounter; R60.0 Localized edema; I10 Essential (primary) hypertension
CPT/HCPCS: 11042

== ENCOUNTER → 2024-03-05 14:30 | Outpatient (CLI) | payer MEDICARE, SELFPAY ==
[2023-11-07 20:17] VITALS: BMI 25.8
== END ==
LOC: WC 14:33
PROVIDERS: Family Provider Physician Assistant; PCP Physician Assistant; Referring Provider Orthopaedic Surgery Foot and Ankle Surgery; Visit Provider Surgery
DX: T81.89XA Other complications of procedures, not elsewhere classified, initial encounter (principal); S91.001A Unspecified open wound, right ankle, initial encounter; R60.0 Localized edema
CPT/HCPCS: 11042

== ENCOUNTER → 2024-03-13 12:54 | Outpatient (CLI) | payer MEDICARE, SELFPAY ==
[2023-11-07 20:17] VITALS: BMI 25.8
== END ==
PROVIDERS: Family Provider Physician Assistant; PCP Physician Assistant; Referring Provider Physician Assistant; Visit Provider Surgery
DX: T81.89XA Other complications of procedures, not elsewhere classified, initial encounter (principal); R60.0 Localized edema; I10 Essential (primary) hypertension
CPT/HCPCS: 11042; 99213

== ENCOUNTER → 2024-03-21 14:21 | Outpatient (CLI) | payer MEDICARE, SELFPAY ==
[2023-11-07 20:17] VITALS: BMI 25.8
== END ==
LOC: WC 14:27
PROVIDERS: Family Provider Physician Assistant; PCP Physician Assistant; Referring Provider Orthopaedic Surgery Foot and Ankle Surgery; Visit Provider Surgery
DX: T81.89XA Other complications of procedures, not elsewhere classified, initial encounter (principal); L98.8 Other specified disorders of the skin and subcutaneous tissue; S91.002A Unspecified open wound, left ankle, initial encounter; R60.0 Localized edema; I10 Essential (primary) hypertension
CPT/HCPCS: 11042

== ENCOUNTER → 2024-03-26 15:15 | Outpatient (CLI) | payer MEDICARE, SELFPAY ==
[2023-11-07 20:17] VITALS: BMI 25.8
== END ==
LOC: WC 15:15
PROVIDERS: Family Provider Physician Assistant; PCP Physician Assistant; Referring Provider Orthopaedic Surgery Foot and Ankle Surgery; Visit Provider Surgery
DX: T81.89XA Other complications of procedures, not elsewhere classified, initial encounter (principal); L98.8 Other specified disorders of the skin and subcutaneous tissue; S91.001A Unspecified open wound, right ankle, initial encounter; R60.0 Localized edema; I10 Essential (primary) hypertension
CPT/HCPCS: 11042

== ENCOUNTER → 2024-04-02 14:27 | Outpatient (CLI) | payer MEDICARE, SELFPAY ==
[2023-11-07 20:17] VITALS: BMI 25.8
== END ==
PROVIDERS: Family Provider Physician Assistant; PCP Physician Assistant; Referring Provider Orthopaedic Surgery Foot and Ankle Surgery; Visit Provider Surgery
DX: T81.89XA Other complications of procedures, not elsewhere classified, initial encounter (principal); S91.001A Unspecified open wound, right ankle, initial encounter; R60.0 Localized edema
CPT/HCPCS: 11042

== ENCOUNTER → 2024-04-09 15:40 | Outpatient (CLI) | payer MEDICARE, SELFPAY ==
[2023-11-07 20:17] VITALS: BMI 25.8
== END ==
LOC: WC 15:41
PROVIDERS: Family Provider Physician Assistant; PCP Physician Assistant; Referring Provider Orthopaedic Surgery Foot and Ankle Surgery; Visit Provider Surgery
DX: T81.31XA Disruption of external operation (surgical) wound, not elsewhere classified, initial encounter (principal); S91.001A Unspecified open wound, right ankle, initial encounter; R60.0 Localized edema
CPT/HCPCS: 15271; 99213; Q4159

== ENCOUNTER → 2024-04-16 15:09 | Outpatient (CLI) | payer MEDICARE, SELFPAY ==
[2023-11-07 20:17] VITALS: BMI 25.8
== END ==
LOC: WC 15:12
PROVIDERS: Family Provider Physician Assistant; PCP Physician Assistant; Referring Provider Orthopaedic Surgery Foot and Ankle Surgery; Visit Provider Surgery
DX: T81.89XA Other complications of procedures, not elsewhere classified, initial encounter (principal); S91.001A Unspecified open wound, right ankle, initial encounter; R23.4 Changes in skin texture; R60.0 Localized edema
CPT/HCPCS: 15271; Q4159

== ENCOUNTER → 2024-04-23 14:18 | Outpatient (CLI) | payer MEDICARE, SELFPAY ==
[2023-11-07 20:17] VITALS: BMI 25.8
== END ==
LOC: WC 14:18
PROVIDERS: Family Provider Physician Assistant; PCP Physician Assistant; Referring Provider Physician Assistant; Visit Provider Surgery
DX: T81.31XA Disruption of external operation (surgical) wound, not elsewhere classified, initial encounter (principal); S91.001A Unspecified open wound, right ankle, initial encounter
CPT/HCPCS: 15271; Q4159

== ENCOUNTER → 2024-04-30 15:00 | Outpatient (CLI) | payer MEDICARE, SELFPAY ==
[2023-11-07 20:17] VITALS: BMI 25.8
== END ==
PROVIDERS: Family Provider Physician Assistant; PCP Physician Assistant; Referring Provider Physician Assistant; Visit Provider Surgery
DX: T81.89XA Other complications of procedures, not elsewhere classified, initial encounter (principal); S91.001A Unspecified open wound, right ankle, initial encounter; R60.0 Localized edema; R21 Rash and other nonspecific skin eruption
CPT/HCPCS: 99212; 99213

== ENCOUNTER → 2024-05-07 10:16 | Outpatient (CLI) | payer MEDICARE, SELFPAY ==
[2023-11-07 20:17] VITALS: BMI 25.8
== END ==
PROVIDERS: Family Provider Physician Assistant; PCP Physician Assistant; Referring Provider Physician Assistant; Visit Provider Surgery
DX: S91.001A Unspecified open wound, right ankle, initial encounter (principal); T81.31XA Disruption of external operation (surgical) wound, not elsewhere classified, initial encounter; R60.0 Localized edema; R21 Rash and other nonspecific skin eruption
CPT/HCPCS: 11042; 99213

== ENCOUNTER → 2024-05-14 11:07 | Outpatient (CLI) | payer MEDICARE, SELFPAY ==
[2023-11-07 20:17] VITALS: BMI 25.8
== END ==
LOC: WC 06-25 11:07
PROVIDERS: Family Provider Physician Assistant; PCP Physician Assistant; Referring Provider Physician Assistant; Visit Provider Surgery
DX: T81.89XA Other complications of procedures, not elsewhere classified, initial encounter (principal); S81.801A Unspecified open wound, right lower leg, initial encounter
CPT/HCPCS: 99212

== ENCOUNTER 2024-05-17 14:30 | Outpatient (RCR) | payer MEDICARE, SELFPAY ==
[2023-11-07 20:17] VITALS: BMI 25.8
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
== END 2024-07-20 12:50 | disposition home or self-care (01) ==
LOC: PHYS 14:30
PROVIDERS: Family Provider Physician Assistant; PCP Physician Assistant; Referring Provider Physician Assistant; Visit Provider Physician Assistant
DX: S82.892D Other fracture of left lower leg, subsequent encounter for closed fracture with routine healing (principal)
CPT/HCPCS: 97110; 97112; 97116; 97140; 97162

== ENCOUNTER → 2024-05-21 10:41 | Outpatient (CLI) | payer MEDICARE, SELFPAY ==
[2023-11-07 20:17] VITALS: BMI 25.8
== END ==
PROVIDERS: Family Provider Physician Assistant; PCP Physician Assistant; Referring Provider Physician Assistant; Visit Provider Surgery
DX: S91.001D Unspecified open wound, right ankle, subsequent encounter (principal); T81.31XD Disruption of external operation (surgical) wound, not elsewhere classified, subsequent encounter
CPT/HCPCS: 99212; 99213

== ENCOUNTER → 2024-05-28 10:49 | Outpatient (CLI) | payer MEDICARE, SELFPAY ==
[2023-11-07 20:17] VITALS: BMI 25.8
== END ==
PROVIDERS: Family Provider Physician Assistant; PCP Physician Assistant; Referring Provider Physician Assistant; Visit Provider Surgery
DX: S91.001D Unspecified open wound, right ankle, subsequent encounter (principal); T81.31XD Disruption of external operation (surgical) wound, not elsewhere classified, subsequent encounter
CPT/HCPCS: 99211; 99213